=== PATIENT | female | born 1975 | race Caucasian/White ===

== ENCOUNTER 2023-10-14 09:18 | Outpatient (OUT) | payer BC, SELFPAY ==
--- NOTE | 2023-10-14 09:26 | MM_ITS ---
Patient Name: KEE RAI MR#: [id number] : 1975 Exam Date: 10/14/2023 Ordering Doctor: DR CELESTE BERG RADIOLOGY REPORT PROCEDURE: MM TOMOSYNTHESIS SCREENING BI COMPARISON: MG MAMM SCREEN 3D DAY[facility] CAD, 01/20/2022. MG MAMM SCREEN DAYANA W CAD, 05/17/2020. MG MAMM SCREEN DAYANA W CAD, 10/25/2018. MG MAMM [facility] DIAG W CAD DIG, 03/27/2013. INDICATIONS: Screening Calculator Name NCI Breast Cancer Risk Assessment Tool 5 Year Breast Cancer Risk 1.50% Lifetime Breast Cancer Risk 13.60% Personal Breast Cancer No Personal Ovarian Cancer No Treatments None Family Cancers Grandmother-paternal with lupus cancer at age 68. LOCATION: [facility] BREAST COMPOSITION: Extremely dense, which lowers the sensitivity of mammography. FINDINGS: DIAGNOSTIC CATEGORY 2--BENIGN FINDING: RIGHT BREAST: No significant suspicious finding. Scattered benign-appearing calcifications are present. LEFT BREAST: No significant suspicious finding. No significant change has occurred. RECOMMENDATIONS: ROUTINE MAMMOGRAM AND CLINICAL EVALUATION IN 12 MONTHS. PLEASE NOTE: A NORMAL MAMMOGRAM DOES NOT EXCLUDE THE POSSIBILITY OF BREAST CANCER. A CLINICALLY SUSPICIOUS PALPABLE LUMP SHOULD BE BIOPSIED. Dictated by: Gigi Colunga M.D. on 10/15/2023 at 14:36 Approved by: Gigi Colunga M.D. on 10/15/2023 at 14:40
== END 2023-10-14 09:19 | disposition home or self-care (01) ==
LOC: MAMMO 09:22
PROVIDERS: PCP Internal Medicine; Visit Provider Physician Assistant
DX: Z12.31 Encounter for screening mammogram for malignant neoplasm of breast (principal); Z80.8 Family history of malignant neoplasm of other organs or systems
CPT/HCPCS: 77063; 77067

== ENCOUNTER 2023-10-26 09:34 | Outpatient (OUT) | payer BC, SELFPAY ==
--- NOTE | 2023-10-26 09:37 | MR_ITS ---
The [address] [address] Patient Name: KEE RAI MRN: [facility]:[id number] date: 1975 Sex: F Assigned Patient Location: MRI Current Patient Location: MRI Accession/Order Number: [id number] Exam Date: 10/26/2023 09:52 Report Date: 10/26/2023 10:59 At the request of: ALICIA WAGONER Procedure: MR lumbar spine wo con EXAM: MR lumbar spine wo con REASON FOR EXAM: Lumbar Facet Arthropathy, Degenerative Disc Disease. TECHNIQUE: Multiplanar, multisequence imaging of the lumbar spine was performed without contrast COMPARISON: 01/23/2022. FINDINGS: 5 nonrib-bearing lumbar vertebrae. Normal lumbar lordosis without significant listhesis. Vertebral body heights are maintained. The bone marrow signal is heterogeneous, favoring to represent red marrow reconversion. There are surgical changes at the L5-S1 level from likely prior partial laminectomy and prior discectomy. No acute or aggressive osseous abnormality identified. Visualized bony pelvis is congruent with mild joint space and sacroiliac joints. Limited evaluation of the abdominopelvic viscera is without acute or suspicious abnormality. L1-L2: No focal disc herniation identified. No significant spinal canal or neural foraminal stenosis. L2-L3: No focal disc herniation identified. No significant spinal canal or neural foraminal stenosis. L3-L4: Minimal broad-based disc bulge without significant spinal canal stenosis. Mild bilateral neural foraminal stenosis secondary to disc osteophyte complex and facet arthropathy. This has slightly progressed from prior study. L4-L5: Minimal broad-based disc bulge with flattening the ventral thecal sac. No significant spinal canal stenosis. Mild bilateral neural foraminal stenosis, right greater than left secondary to disc osteophyte complex and facet arthropathy. This is unchanged. L5-S1: Broad-based disc bulge without significant spinal canal stenosis. No definite compression of the traversing S1 nerve roots. Moderate bilateral neural foraminal stenosis secondary to disc osteophyte complex and facet arthropathy. Neural foraminal stenosis has not significant changed. MR/MR lumbar spine wo con IMPRESSION: 1. Postsurgical changes at the L5-S1 level. Unchanged moderate bilateral neural foraminal stenosis at this level. 2. Minimal degenerative disc disease at the remaining lumbar levels with slight progression at the L3-L4 level. No focal large disc herniation or severe spinal canal stenosis. Electronically authenticated by: SOURAV MORGAN Date: 10/26/2023 10:59
--- OUTSIDE RECORDS SUMMARY | 2023-10-26 09:52 | XMS_ITS | CCD ---
Author Organization [facility] Care Team Providers Care Chief Green Officer Name Role Phone Chapito Brush Unavailable OTILIA Man Primary Care Provider MD Chapito Brush Attending Provider [phone] Zeny Kaiser Unavailable Donovan, II Eduardo Primary Care Provider MD Zeny Kaiser Attending Provider ANN, DR PAULINE Gu Admitting Unavailable HEMMER, DR PAULINE Gu Attending Unavailable JAZMINE LIAO Consulting Unavailable DONOVAN, DR KABA Primary Care Unavailable HEMMER, DR PAULINE Gu Consulting Unavailable HEMMER, DR PAULINE Gu Attending Unavailable HEMMER, DR PAULINE Gu Admitting Unavailable HEMMER, DR PAULINE Gu Consulting Unavailable MAN, DR KABA Primary Care Unavailable HEMMER, DR PAULINE Gu Attending Unavailable HEMMER, DR PAULINE Gu Admitting Unavailable JUNO CORTES Consulting Unavailable DONOVAN, DR KABA Primary Care Unavailable HEMMER, DR PAULINE Gu Consulting Unavailable AMBER Garza, DR KING Attending Unavailable TRACI ., MR VALERA Consulting Unavailable DONOVAN, DR KABA Primary Care Unavailable AMBER Garza, DR KING Admitting Unavailable SERGIO RAE Consulting Unavailable SERGIO RAE Attending Unavailable DONOVAN, DR KABA Primary Care Unavailable SERGIO RAE Admitting Unavailable JAZMINE HARVEY Consulting Unavailable BILL .BHASKAR Consulting Unavailable BILL ., BHASKAR Attending Unavailable BILL ., BHASKAR Admitting Unavailable DONOVAN, DR KABA Primary Care Unavailable MISC, DR ROBERTO Referring Unavailable ALICIA WAGONER Attending Unavailable ALICIA WAGONER Admitting Unavailable DONOVAN, DR KABA Primary Care Unavailable ALICIA WAGONER Admitting Unavailable ALICIA WAGONER Attending Unavailable LEIGHA, DR GIGI Hurley Consulting Unavailable DONOVAN, DR KABA Primary Care Unavailable ALICIA WAGONER Consulting Unavailable DONOVAN, DR KABA Consulting Unavailable DONOVAN, DR KABA Attending Unavailable DONOVAN, DR KABA Admitting Unavailable DONOVAN, DR KABA Primary Care Unavailable EDITH ., DR BAPTISTE Consulting Unavailable LEIGHA, DR GIGI Hurley Consulting Unavailable Man, II Eduardo Primary Care Provider MD Zeny Kaiser Attending Provider [phone] Donovan, II Eduardo Primary Care Provider [phone] MD Zeny Kaiser Attending Provider [phone] Maurisio Jones Unavailable Donovan, II Eduardo Primary Care Provider [phone] DO Maurisio Jones Attending Provider [phone] Zeny Kaiser Admitting Unavailable Zeny Kaiser Attending Unavailable Donovan, Eduardo Primary Care Unavailable Maurisio Jones Admitting Unavailable Maurisio Jones Attending Unavailable Eduardo Man Primary Care Unavailable Maurisio Jones Attending Unavailable Eduardo Man Primary Care Unavailable Maurisio Jones Admitting Unavailable Zeny Kaiser Admitting Unavailable Zeny Kaiser Attending Unavailable Eduardo Man Primary Care Unavailable Zeny Kaiser Admitting Unavailable Zeny Kaiser Attending Unavailable Eduardo Man Primary Care Unavailable EMY PALOMARES Attending Unavailable EMY PALOMARES Referring Unavailable EMY PALOMARES Attending Unavailable JAZMINE AVENDAÑO Attending Unavailable ZENY KAISER Referring Unavailable Eduardo Man MD Primary Care Provider Eduardo Man MD Unavailable Allergies Allergy Classification Reported Allergen(s) Allergy Type Date of Onset Reaction(s) Facility (1 source) egg extract Drug Allergy 09-17-2014 [facility] Repository (1 source) Papaveretum Drug Allergy 09-17-2014 [facility] Repository (1 source) venlafaxine Drug Allergy 09-17-2014 [facility] Repository (1 source) Wheat preparation Drug Allergy 09-17-2014 [facility] Repository (3 sources) venlafaxine Drug Allergy 08-15-2021 [facility] Medications Current Medications Medication Drug Class(es) Dates Sig (Normalized) Sig (Original) acetaminophen 325 mg / HYDROcodone bitartrate 5 mg oral tablet (20 sources) Opioid Agonist Start: 08-30-2023 take 1 tablet by mouth every six hours HYDROcodone-acetamin ophen ([place]) 5-325 MG tablet Indications: Degeneration of lumbar or lumbosacral intervertebral disc , Lumbar radiculopathy Take 1 tablet by mouth every 6 (six) hours 120 tablet 0 08/30/2023 Active Start: 01-20-2019 take 1 tablet by keiko th three times daily Hydrocodone-Acetaminophen Active 1 TAB P O Three times daily January 19, 2019 11:00pm HYDROcodone-Acet aminophen Active Advair Diskus 250-50 MCG/DOSE (20 sources) take 1 puff(s) by inhalation twice daily [id number] 200 actuat albuterol 0.09 mg/actuat metered dose inhaler (15 sources) beta2-Adrenergic Agonist Start: 3 take 2 puff(s) by inhalation every four hours for wheezing albuterol HFA 90 mcg/act inhaler Indications: Mild persistent asthmatic bronchitis without complication (CMS/HCC) Inhale 2 puffs every 4 (four) hours if needed for wheezing or shortness of breath. 18 g 5 01/28/2023 Active Start: 01-20-2019 take 1 puff(s) by in halation every four to six hours Albuterol Sulfate (Proair Hfa) 90 mcg/actuation Hfa Aerosol Inhaler Active 2 PUFF INHALATION EVERY 4-6 HOURS January 19, 2019 11:00pm take 2 puff(s) by in halation every four hours as needed b complex-folic acid tablet (3 sources) take 1 tablet by mouth in the morning b complex-folic acid tablet Take 1 tablet by mouth in the morning. 0 Active baclofen 10 mg oral tablet (5 sources) gamma-Aminobutyric Acid-ergic Agonist Start: 01-21-20 19 take 5 mg by mouth three times daily Baclofen Active 5 MG PO Three times daily January 19, 2019 11:00pm Bee Pollen 500 MG chewable tablet (3 sources) Bee Pollen 500 M G chewable tablet Chew 1 tablet in the morning. 0 Active biotin 10 mg oral tablet (3 sources) biotin 10 MG tab let every 12 (twelve) hours. 0 Active 24 hr buPROPion hydrochloride 150 mg extended release oral tablet (3 sources) Aminoketone buPROPion XL (Wellbutrin XL) 150 MG 24 hr tablet 1 (one) time each day at the same time. 0 Active cetirizine hydrochloride 10 mg oral capsule (20 sources) Histamine-1 Receptor Antagonist Start: 01-21-20 19 take 1 capsule by mouth once daily Cetirizine (Zyrtec) 10 mg Capsule Active 10 MG PO Daily January 19, 2019 11:00pm take 1 tablet by mouth every twe nty-four hours cholecalciferol 0.05 mg oral capsule (3 sources) Vitamin D cholecalciferol (Vitamin D-3) 50 MCG (1999 UT) capsule 1 capsule 1 (one) time each day at the same time. 0 Active cyclobenzaprine hydrochloride 10 mg oral tablet (20 sources) Muscle Relaxant take 1 tablet by mouth three times daily as needed cyclobenzaprine (Flexeril) 10 MG tablet Take 10 mg by mouth 3 (three) times a day as needed. 0 Active Flexeril Active diazePAM 5 mg oral tablet (20 sources) Benzodiazepine Start: 08-30-2023 take 1 tablet by mouth in the morning diazePAM (Valium) 5 MG tablet Indications: Back muscle spasm Take 1 tablet (5 mg) by mouth in the morning and 1 tablet (5 mg) before bedtime. 60 tablet 0 08/30/2023 Active Start: 01-20-2019 take 5 mg by mouth o nce daily at bedtime Diazepam Active 2.5 MG PO Daily January 19, 2019 11:00pm 5 mg hs diazePAM Active docusate sodium 100 mg oral capsule (3 sources) take 1 capsule by mouth in the morning docusate sodium (Colace) 100 MG capsule Take 100 mg by mouth in the morning. 0 Active fluticasone propionate 0.05 mg/actuat metered dose nasal spray (3 sources) Corticosteroid take 1 spray(s) nasal route once daily fluticasone (Flonase) 50 MCG/ACT nasal spray SPRAY 1 SPRAY INTO EACH NOSTRIL EVERY DAY 0 Active gabapentin 100 mg oral capsule (20 sources) Anti-epileptic Agent Start: 05-19-20 take 3 capsules by mouth in the morning gabapentin (Neurontin) 100 MG capsule Indications: Degeneration of lumbar or lumbosacral intervertebral disc , Lumbar radiculopathy Take 3 capsules (300 mg) by mouth in the morning and 3 capsules (300 mg) before bedtime. 200 capsule 3 05/19/2023 Active take 1 capsule by mo [facility] every twenty-four hours Gabapentin 400 MG 1 capsule Orally Once a day Active linaclotide 0.29 mg oral capsule (3 sources) Guanylate Cyclase-C Agonist Start: 05-24-2023 take 1 capsule by mouth once daily linaCLOtide (Linzess) 290 MCG capsule Indications: Chronic idiopathic constipation Take 1 capsule (290 mcg) by mouth 1 (one) time each day at the same time. 90 capsule 3 05/24/2023 Active meclizine hydrochloride 25 mg oral tablet (8 sources) Antiemetic Start: 02-26-2023 take 1 tablet by mouth every six hours for dizziness meclizine (Antivert) 25 MG tablet Indications: Meniere's disease of both ears Take 1 tablet (25 mg) by mouth every 6 (six) hours if needed for dizziness. 120 tablet 2 02/26/2023 Active Start: 01-20-2019 take 25 mg by mouth three times daily Meclizine Active 25 MG PO Three times daily January 19, 2019 11:00pm montelukast 10 mg oral tablet (3 sources) Leukotriene Receptor Antagonist montelukast (Singulair) 10 MG tablet 1 (one) time each day at the same time. 0 Active Multiple Vitamin (multivitamin) tablet (3 sources) take 1 tablet by mouth in the morning Multiple Vitamin (multivitamin) tablet Take 1 tablet by mouth in the morning. 0 Active omeprazole 40 mg delayed release oral capsule (20 sources) Proton Pump Inhibitor Start: take 1 capsule by mouth once daily omeprazole (PriLOSEC) [address] capsule Indications: Gastro-esophageal reflux disease without esophagitis TAKE 1 CAPSULE BY MOUTH EVERY DAY 90 capsule 3 02/15/2023 Active Omeprazole Not-T aking ondansetron 4 mg disintegrating oral tablet (8 sources) Serotonin-3 Receptor Antagonist Start: 05-24-2023 take 1 tablet by mouth every six hours for nausea ondansetron ODT (Zofran-ODT) 4 MG disintegrating tablet Indications: Chronic idiopathic constipation Take 1 tablet (4 mg) by mouth every 6 (six) hours if needed for nausea or vomiting. 20 tablet 5 05/24/2023 Active Start: 01-20-2019 Ondansetron Ac tive 4 MG TRANSLINGU Q8H January 19, 2019 11:00pm OXcarbazepine 150 mg oral tablet (3 sources) Anti-epileptic Agent OXcarbazepi ne (Trileptal) 150 MG tablet TAKE 1 TABLET BY MOUTH TWICE A DAY FOR 30 DAYS for 30 0 Active plecanatide 3 mg oral tablet (8 sources) Start: End: 024 take 1 tablet by mouth in the morning plecanatide (Trulance) tablet tablet Indications: Chronic idiopathic constipation Take 1 tablet (3 mg) by mouth in the morning. 90 tablet 3 03/11/2023 03/10/2024 Active ProAir HFA 108 (90 Base) MCG/ACT (20 sources) take 2 puff(s) by inhalation every four hours as needed Probiotic Formula (20 sources) vitamin b12 0.1 mg oral tablet (3 sources) Vitamin B12 take 1 tablet by mouth in the morning cyanocobalamin (Vitamin B-12) 100 MCG tablet Take 100 mcg by mouth in the morning. 0 Active Completed/Discontinued Medications Medication Drug Class(es) Dates Sig (Normalized) Sig (Original) triamcinolone acetonide 40 mg/ml injectable suspension (20 sources) Corticosteroid Start: 09-22-2022 Kenalog-40 Jun, 40 mg Problems Active Problems Problem Classification Problem Date Documented Da te Episodic/Chronic Abdominal pain (20 sources) Abdominal pain; Translations: [Unspecified abdominal pain] Episodic Anxiety disorders (3 sources) Anxiety about body function or health; Translations: [Other specified anxiety disorders] Onset: 1 01-07-2023 Chronic Asthma (13 sources) Mild intermittent asthma with (acute) exacerbation; Translations: [Asthmatic bronchitis] Onset: 7 Resolved: 3 01-07-2023 Chronic Conditions associated with dizziness or vertigo (9 sources) Bilateral Meniere's disease of inner ears; Translations: [Meniere's disease, bilateral] Onset: 1 Resolved: 3 01-07-2023 Chronic Diseases of white blood cells (3 sources) Eosinophil count raised; Translations: [Eosinophilia] Onset: 5 01-07-2023 Chronic Disorders of lipid metabolism (3 sources) Pure hypercholesterolemia; Translations: [Pure hypercholesterolemia, unspecified] Onset: 7 01-07-2023 Chronic Disorders usually diagnosed in infancy, childhood, or adolescence (3 sources) Attention deficit hyperactivity disorder, predominantly inattentive type; Translations: [Other specified behavioral and emotional disorders with onset usually occurring in childhood and adolescence] Onset: 3 02-26-2023 Chronic Esophageal disorders (3 sources) Gastroesophageal reflux disease without esophagitis; Translations: [Gastro-esophageal reflux disease without esophagitis] Onset: 5 01-07-2023 Chronic Genitourinary symptoms and ill-defined conditions (3 sources) Nocturnal enuresis; Translations: [Nocturnal enuresis] Onset: 8 01-07-2023 Chronic Headache; including migraine (3 sources) Migraine without aura, not refractory ; Translations: [Migraine without aura, not intractable, without status migrainosus] Onset: 1 01-07-2023 Chronic Neoplasms of unspecified nature or uncertain behavior (6 sources) Monoclonal gammopathy (clinical); Translations: [Monoclonal gammopathy] Onset: 5 01-07-2023 Chronic Other acquired deformities (20 sources) Spondylolisthesis; Translations: [Spondylolisthesis, lumbosacral region] Episodic Other acquired deformities (3 sources) Spondylolisthesis, lumbosacral region Episodic Other connective tissue disease (12 sources) Disorder of rotator cuff; Translations: [Unspecified rotator cuff tear or rupture of left shoulder, not specified as traumatic] Episodic Other ear and sense organ disorders (3 sources) Mixed conductive and sensorineural hearing loss, unilateral, left ear, with unrestricted hearing on the contralateral side; Translations: [Mixed hearing loss, unilateral] Onset: 6 01-07-2023 Chronic Other endocrine disorders (3 sources) Bilateral mass of adrenal glands; Translations: [Other specified disorders of adrenal gland] Onset: 9 01-07-2023 Chronic Other gastrointestinal disorders (5 sources) Chronic idiopathic constipation; Translations: [Chronic idiopathic constipation] Onset: 3 04-01-2023 Chronic Other inflammatory condition of skin (3 sources) Pityriasis rosea; Translations: [Pityriasis rosea] Onset: 1 01-07-2023 Chronic Other nervous system disorders (20 sources) Chronic pain; Translations: [Other chronic pain] Onset: 7 01-07-2023 Chronic Other nervous system disorders (16 sources) Other chronic pain; Translations: [OTHER CHRONIC PAIN] Onset: 2 Resolved: 2 Chronic Other nervous system disorders (3 sources) Brachial plexus disorder; Translations: [Brachial plexus disorders] Onset: 1 01-07-2023 Chronic Other nervous system disorders (3 sources) Cerebral cyst; Translations: [Cerebral cysts] Onset: 1 01-07-2023 Chronic Other nervous system disorders (3 sources) Choroid plexus cyst; Translations: [Cerebral cysts] Onset: 3 01-07-2023 Chronic Other non-traumatic joint disorders (2 sources) Derangement of right shoulder joint; Translations: [Other specific joint derangements of right shoulder, not elsewhere classified] Chronic Other non-traumatic joint disorders (2 sources) Other specific joint derangements of right shoulder, not elsewhere classified Chronic Other non-traumatic joint disorders (13 sources) Pain in right shoulder; Translations: [Right shoulder pain] Episodic Other non-traumatic joint disorders (7 sources) Shoulder pain; Translations: [Pain in unspecified shoulder] Episodic Other non-traumatic joint disorders (2 sources) Pain in unspecified shoulder Episodic Other non-traumatic joint disorders (1 source) Pain in left shoulder; Translations: [Pain in left shoulder] Onset: 3 Episodic Other nutritional; endocrine; and metabolic disorders (3 sources) Disorder of sulfur-bearing amino acid metabolism; Translations: [Disorders of sulfur-bearing amino-acid metabolism, unspecified] Onset: 5 01-07-2023 Chronic Other upper respiratory disease (3 sources) Allergic rhinitis due to pollen; Translations: [Allergic rhinitis due to pollen] Onset: 6 01-07-2023 Chronic Spondylosis; intervertebral disc disorders; other back problems (20 sources) Prolapsed lumbar intervertebral disc; Translations: [Other intervertebral disc displacement, lumbar region] Onset: 5 Resolved: 2 Chronic Substance-related disorders (6 sources) Nicotine dependence; Translations: [Nicotine dependence, cigarettes, uncomplicated] Onset: 8 Resolved: 3 01-07-2023 Chronic Thyroid disorders (3 sources) Pau thyroiditis; Translations: [Autoimmune thyroiditis] Onset: 5 01-07-2023 Chronic Unclassified (3 sources) ACUTE COUGH; Translations: [ACUTE COUGH] Onset: 2 Unclassified (3 sources) LOW BACK PAIN, UNSPECIFIED; Translations: [LOW BACK PAIN, UNSPECIFIED] Onset: 2 Unclassified (1 source) Other specific joint derangements of right shoulder, not elsewhere classified; Translations: [Other specific joint derangements of right shoulder, not elsewhere classified] Onset: 4 Unclassified (1 source) Pain in right shoulder; Translations: [Pain in right shoulder] Onset: 3 Past or Other Problems Problem Classification Problem Date Documented Date Episodic/Chronic Allergic reactions (6 sources) Allergic gastroenteritis and colitis; Translations: [Other allergic and dietetic gastroenteritis and colitis] Onset: 015 01-07-2023 Episodic Bacterial infection; unspecified site (6 sources) Bartonellosis; 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, unspecified] Onset: Resolve d: 023 01-07-2023 Episodic Diseases of mouth; excluding dental (3 sources) Mass of parotid gland; Translations: [Other diseases of salivary glands] Onset: 017 01-07-2023 Episodic E Codes: Fall (1 source) Unspecified fall, initial encounter; Translations: [UNSPECIFIED FALL INITIAL ENCOUNTER] Onset: Episodic Genitourinary symptoms and ill-defined conditions (3 sources) Delay when starting to pass urine; Translations: [Hesitancy of micturition] Onset: 019 01-07-2023 Episodic Nonspecific chest pain (4 sources) Other chest pain; Translations: [OTHER CHEST PAIN] Onset: Episodic Other aftercare (1 source) Other salvage determiner (current) drug therapy; Translations: [OTH NURSING HOME CURRENT DRUG THERAPY] Onset: Episodic Other and unspecified benign neoplasm (20 sources) Tubular adenoma ; Translations: [Benign neoplasm, unspecified site] Onset: 019 01-07-2023 Episodic Other and unspecified benign neoplasm (3 sources) Adrenal adenoma; Translations: [Benign neoplasm of unspecified adrenal gland] Onset: 01-07-2023 Episodic Other and unspecified benign neoplasm (3 sources) Benign neoplasm of adrenal gland; Translations: [Benign neoplasm of unspecified adrenal gland] Onset: 015 01-07-2023 Episodic Other connective tissue disease (2 sources) Myalgia, unspecified site; Translations: [MYALGIA UNSPECIFIED SITE] Onset: Episodic Other connective tissue disease (1 source) Fibromyalgia; Translations: [FIBROMYALGIA] Onset: Episodic Other connective tissue disease (3 sources) Fibromyalgia; Translations: [Fibromyalgia] Onset: 01-07-2023 Episodic Other connective tissue disease (3 sources) Muscle pain; Translations: [Myalgia, unspecified site] Onset: 01-07-2023 Episodic Other connective tissue disease (3 sources) Bursitis of hip; Translations: [Trochanteric bursitis, unspecified hip] Onset: 01-07-2023 Episodic Other ear and sense organ disorders (3 sources) Sensorineural hearing loss; Translations: [Unspecified sensorineural hearing loss] Onset: Resolve d: 05-24-2023 Chronic Other ear and sense organ disorders (3 sources) Sensorineural hearing loss, unilateral, left ear, with unrestricted hearing on the contralateral side; Translations: [Sensorineural hearing loss, unilateral] Onset: Resolve d: 05-24-2023 Chronic Other ear and sense organ disorders (3 sources) Bilateral tinnitus; Translations: [Tinnitus, bilateral] Onset: 01-07-2023 Episodic Other endocrine disorders (3 sources) Disorder of adrenal gland; Translations: [Disorder of adrenal gland, unspecified] Onset: Resolve d: 05-24-2023 Chronic Other female genital disorders (3 sources) Mass of uterine adnexa; Translations: [Other specified conditions associated with female genital organs and menstrual cycle] Onset: 019 Resolve d: 05-24-2023 Episodic Other gastrointestinal disorders (20 sources) Constipation; Translations: [Constipation, unspecified] Onset: Resolve d: 04-01-2023 Episodic Other gastrointestinal disorders (3 sources) Drug-induced constipation; Translations: [Drug induced constipation] Onset: Resolve d: 04-01-2023 Episodic Other nervous system disorders (3 sources) Abnormal gait; Translations: [Unspecified abnormalities of gait and mobility] Onset: 01-07-2023 Episodic Other nervous system disorders (3 sources) Unsteady when standing; Translations: [Unsteadiness on feet] Onset: 01-07-2023 Episodic Other non-traumatic joint disorders (3 sources) Pain in right hip; Translations: [PAIN IN RIGHT HIP] Onset: Episodic Other nutritional; endocrine; and metabolic disorders (3 sources) Underweight; Translations: [Underweight] Onset: Resolve d: 05-24-2023 Episodic Other screening for suspected conditions (not mental disorders or infectious disease) (3 sources) Plain X-ray result abnormal; Translations: [Abnormal findings on diagnostic imaging of other specified body structures] Onset: Resolve d: 05-24-2023 Chronic Other screening for suspected conditions (not mental disorders or infectious disease) (4 sources) Encounter for screening mammogram for malignant neoplasm of breast; Translations: [ENC SCR MAMMO MALIG NEOPLASM BREAST] Onset: Episodic Other upper respiratory disease (3 sources) Allergic rhinitis; Translations: [Allergic rhinitis, unspecified] Onset: Resolve d: 05-24-2023 Chronic Residual codes; unclassified (1 source) Family history of malignant neoplasm of other organs or systems; Translations: [FAM HX MALIG NEOPLASM OTH ORGN/SYS] Onset: Episodic Residual codes; unclassified (3 sources) Homozygous methylenetetrahydrofolate reductase mutation; Translations: [Genetic susceptibility to other disease] Onset: 01-07-2023 Episodic Spondylosis; intervertebral disc disorders; other back problems (20 sources) Chronic low back pain; Translations: [Lumbago with sciatica, left side] Onset: Resolve d: Episodic Sprains and strains (1 source) Sprain of ligaments of lumbar spine, initial encounter; Translations: [SPRAIN LIGAMENTS LUMBAR SPN INITIAL] Onset: Episodic Superficial injury; contusion (1 source) Contusion of right hip, initial encounter; Translations: [CONTUSION RIGHT HIP INITIAL ENC] Onset: Episodic Unclassified (3 sources) Lumbar pain M54.50 Onset: Resolve d: Unclassified (1 source) ACUTE COUGH; Translations: [ACUTE COUGH] Onset: Unclassified (1 source) LOW BACK PAIN, UNSPECIFIED; Translations: [LOW BACK PAIN, UNSPECIFIED] Onset: Results Test Name Value Interpretation Reference Range Facility MR shoulder RT wo conon 08-09 MR shoulder RT wo con [facility] [place] [address] MRI Report Signed Patient: Cata Nichole MR#: [id number] : 1975 Acct:[id number] Age/Sex: 48 / F ADM Date: 08/19/23 Loc: [facility] Room: Type: [facility] [address] Attending Dr: Maurisio Jones DO Copies to: Maurisio Jones DO Ordering Provider: Maurisio Jones DO Date of Service: 08/19/23 MR/MR shoulder RT wo con: Internal derangement of right shoulder EXAMINATION: MRI OF THE RIGHT SHOULDER CLINICAL HISTORY: Right shoulder joint pain anteriorly for several months. Limited range of motion COMPARISON: Right shoulder series 06/29/2023 TECHNIQUE: Multiecho, multiplanar imaging was performed with use of an extremity coil. No contrast was administered. FINDINGS: Bones/Joints: No joint effusion. No bone marrow edema. No fracture is seen. Heterogeneous bone marrow signal without focal lesion. Minimal degenerative change involving the glenohumeral joint. Mild degenerative changes involving the AC joint. Inferior glenohumeral ligament appears unremarkable. Labrum: Suboptimally visualized. Mildly heterogenous in signal likely degenerative in nature. Biceps tendon: Seen within the bicipital groove without focal abnormality. The biceps tendon appears to extend to the level of the labrum. Supraspinatus: Tendinosis with a small amount of adjacent fluid noted. No definitive tear is seen. Infraspinatus: Unremarkable. Teres Minor: Unremarkable. Subscapularis: Unremarkable. MR/MR shoulder RT wo con IMPRESSION: TENDINOSIS OF THE SUPRASPINATUS TENDON WITHOUT DEFINITIVE TEAR. THERE IS SMALL AMOUNT OF ADJACENT FLUID NOTED. NO SIGNIFICANT ROTATOR CUFF OR [facility] IS SEEN. MILD DEGENERATIVE CHANGES OF THE SHOULDER. Impression dictated by: Tin Martinez Jr., D.O.08/19/2023 2:20 PM Dictation Location: [place] [address] Transcribed By: [facility] 08/19/23 1420 Dictated By: Tin Martinez Jr, DO 08/19/23 1415 Signed By: 08/19/23 1420 Normal [facility] CT ABDOMEN PELVIS W AND WO I V CONTRASTon 08-16-2023 CT ABDOMEN PELVIS W AND WO IV CONTRAST CT of the Abdomen and Pelvis with and without intravenous contrast medium History: Colitis, abdominal pain, bloating, adrenal gland disorder. Technical Factors: CT imaging of the abdomen and pelvis were obtained and formatted as 5 mm contiguous axial images from the domes of the diaphragm to the symphysis pubis. Sagittal and coronal reconstructions were also obtained. Oral contrast medium: Barium sulfate, 400 mL.. Intravenous contrast medium: Isovue-300, 100 mL.. Comparison: CT abdomen pelvis, [facility], November 25, 2018.. Findings: Lungs: Lung bases are clear. Liver: Normal in size, shape, and attenuation. Bile Ducts: Normal in caliber. Gallbladder: No stones or wall thickening. Pancreas: Normal without masses, cysts, ductal dilatation or calcification. Spleen: Normal in size without masses or calcifications. No splenules. Kidneys: Normal in size and enhancement. No hydronephrosis, masses, or stones. Adrenals: Noncalcified 2.6 x 1.9 x 2.7 cm right adrenal nodule. This compares with prior measurement of 3.3 x 1.9 x 1.9 cm, in November,. Precontrast HU: 9.8. Postcontrast HU: 57.7. Delayed HU: 10.4. Absolute washout: 98.7%. Relative washout: 82.0%. Small bowel: Normal in caliber. Appendix: Not visualized. Colon: Normal in caliber. Copious stool throughout colon. Peritoneum: No ascites, free air, or fluid collections. Vessels: Aorta normal in course and caliber. Portal vein, splenic vein, superior mesenteric vein are patent. Lymph nodes: Retroperitoneal: No enlarged retroperitoneal lymph nodes. Mesenteric: No enlarged mesenteric lymph nodes. Pelvic: No enlarged pelvic lymph nodes. Ureters: Normal in course and caliber. No calcifications. Bladder: No wall thickening. Reproductive organs: No pelvic masses. Abdominal Wall: No hernia identified. No diastasis of rectus musculature. No edema or masses. Bones: No bone lesions. Posterior disc space narrowing L1-L2, and L5-S1. No post operative changes. IMPRESSION: Noncalcified right adenoma. Constipation. All CT scans at this facility use dose modulation, iterative reconstruction, and/or weight based dosing when appropriate to reduce radiation dose to as low as reasonably achievable. ELECTRONICALLY SIGNED BY: Giuseppe Zamudio MD Normal Not Available XR shoulder BI min 2Von 06-10 XR shoulder BI min 2V [facility] Main [place] [address] [place] [address] XRay Report Signed Patient: Cata Nichole MR#: [id number] : 1975 Acct:[id number] Age/Sex: 48 / F ADM Date: 06/29/23 [place]: [facility] Room: Type: [facility] [address] Attending Dr: Maurisio Jones DO Copies to: Maurisio Jones DO Ordering Provider: Maurisio Jones DO Date of Service: 06/29/23 XR/XR shoulder BI min 2V: Pain in right shoulder;Pain in left shoulder XR shoulder BI min 2V 06/29/2023 9:17 AM SIGNS AND SYMPTOMS: Bilateral shoulder pain PROTOCOL: Frontal, Grashey, scapular Y, and axillary views of the bilateral shoulders COMPARISON: None FINDINGS: The acromioclavicular joint and glenohumeral joint are preserved bilaterally. There is no fracture or dislocation. The visualized right and left hemithorax are grossly intact. XR/XR shoulder BI min 2V IMPRESSION: No acute bony injury or significant degenerative change. Impression dictated by: Donald Jones M.D.06/29/2023 12:16 PM Dictation Location: [facility]--12 Transcribed By: [facility] 06/29/23 1216 Dictated By: Donald Jones II, MD 06/29/231212 Signed By: 06/29/23 1216 [facility] XR shoulder BI min 2V [facility] [employer] Other XR shoulder BI min 2V [facility] Main [facility] [employer] Other XR shoulder BI min 2V [address] [place] [address] [employer] Other XR shoulder BI [place] 2[place] [address] [employer] Other XR shoulder BI min 2V XRay Report [employer] Other XR shoulder BI min 2V Signed [employer] Other XR shoulder BI min 2V Patient: Cata Nichole MR#: [id number] [employer] Other XR shoulder BI min 2V 2779 [employer] Other XR shoulder BI min 2V : 1975 Acct:[id number] [employer] Other XR shoulder BI min 2V Age/Sex: 48 / F ADM Date: 06/29/23 [employer] Other XR shoulder BI min 2V Loc: [facility] Room: Type: [facility] [employer] Other XR shoulder BI min 2V Attending Dr: Maurisio Jones DO [employer] Other XR shoulder BI min 2V Copies to: Maurisio Jones DO [employer] Other XR shoulder BI min 2V Ordering Provider: Maurisio Jones DO [employer] Other XR shoulder BI min 2V Date of Service: 06/29/23 [employer] Other XR shoulder BI min 2V XR/XR shoulder BI min 2V: Pain in right shoulder;Pain in left shoulder [employer] Other XR shoulder BI min 2V XR shoulder BI min 2V 06/29/2023 9:17 AM [employer] Other XR shoulder BI min 2V SIGNS AND SYMPTOMS: Bilateral shoulder pain [employer] Other XR shoulder BI min 2V PROTOCOL: Frontal, Grashey, scapular Y, and axillary views of the bilateral shoulders [employer] Other XR shoulder BI min 2V COMPARISON: None [employer] Other XR shoulder BI min 2V FINDINGS: [employer] Other XR shoulder BI min 2V The acromioclavicular joint and glenohumeral joint are preserved bilaterally. There is no fracture [employer] Other XR shoulder BI min 2V or dislocation. The visualized right and left hemithorax are grossly intact. [employer] Other XR shoulder BI min 2V XR/XR shoulder BI min 2V [employer] Other XR shoulder BI min 2V IMPRESSION: [employer] Other XR shoulder BI min 2V No acute bony injury or significant degenerative change. [employer] Other XR shoulder BI min 2V Impression dictated by: Donald Jones M.D.06/29/2023 12:16 PM [employer] Other XR shoulder BI min 2V Dictation Location: [place] [address] [employer] Other XR shoulder BI min 2V Transcribed By: COURTNEY 06/29/23 1216 [employer] Other XR shoulder BI min 2V Dictated By: Donald Jones II, MD 06/29/23 1213 [employer] Other XR shoulder BI min 2V Signed By: [employer] Other XR shoulder BI min 2V 06/29/23 1211 [employer] Other XR pre/post mri xrayon 04-23 XR pre/post mri xray [facility] Main [place] [address] [place] [address] MRI Report Signed Patient: Cata Nichole MR#: [id number] : 1975 Acct:[id number] Age/Sex: 47 / F ADM Date: 04/23/23 Loc: MR Room: Type: [facility] Attending Dr: Zeny Kaiser MD Copies to: Zeny Kaiser MD Ordering Provider: Zeny Kaiser MD Date of Service: 04/23/23 MR/MR cervical spine wo con: further evaluation;Other spondylosis with radiculopathy, cer ([id number]) XR/XR pre/post mri xray: OBLIQUE ONLY MR cervical spine wo con, XR pre/post mri xray 04/23/2023 2:37 PM SIGNS AND SYMPTOMS: Neck pain radiating into right shoulder, history of fall which precipitated symptoms PROTOCOL: Multiplanar multisequence MR images of the cervical spine were obtained without IV contrast. COMPARISON: 04/23/2023 FINDINGS: Radiographs of the cervical spine: The bones are in anatomic alignment. There is operative joint spurring and facet hypertrophy which gives to neural foraminal stenosis bilaterally, predominantly at C5-C6 and C6-C7. The prevertebral soft tissues are grossly unremarkable. MRI cervical spine: The bones of the cervical spine are in anatomic alignment. There is preservation of vertebral body. There is phthisis case mild disc height loss at C2-C3, C5-6, and C6-C7. There is a hemangioma at the superior endplate of the T2 vertebral body. The marrow signal is within normal limits, otherwise. The cord is normal in signal. No epidural or paraspinous fluid collection is appreciated. The visualized paraspinous soft tissues are within normal limits. The prevertebral soft tissues are within normal limits. At C2-C3: There is a broad-based disc bulge with minimal spinal canal narrowing. No significant neural foraminal narrowing. At C3-C4: Left-sided facet hypertrophy contributes to mild left-sided neural foraminal stenosis. At C4-C5: Facet hypertrophy is present bilaterally contributing to mild spinal canal narrowing right greater than left. At C5-C6: There is a broad-based disc bulge with facet and uncovertebral joint degenerative change contributing to moderate narrowing of the neural foramina right greater than left. There is also mild facet hypertrophy. There is mild spinal canal narrowing. At C6-C7: There is a broad-based disc bulge with facet and uncovertebral joint degenerative change. To moderate left and mild right neural foraminal narrowing with mild spinal canal narrowing. At C7-T1: There is a normal disc, central canal, and neural foramen. MR/MR cervical spine wo con IMPRESSION: No cord compression or cord signal abnormality. Disc, facet, and uncovertebral joint degenerative change contributes to varying degrees of spinal canal and neural foraminal narrowing which are most pronounced at C5-C6 and C6-C7, as above. Impression dictated by: Donald Jones M.D.04/23/2023 3:50 PM Dictation Location: [facility] Transcribed By: [facility] 04/23/23 1550 Dictated By: Donald Jones II, MD 04/23/23 6668 Signed By: 04/23/23 5370 [facility] XR cerv spine AP/LAT/FLX/EXT on 01-28-2023 XR cerv spine AP/LAT/FLX/EXT [facility] [employer] Other XR cerv spine AP/LAT/FLX/EXT [facility] [employer] Other XR cerv spine AP/LAT/FLX/EXT [address] [place] [address] [employer] Other XR cerv spine AP/LAT/FLX/[place] [address] [employer] Other XR cerv spine AP/LAT/FLX/EXT XRay Report [employer] Other XR cerv spine AP/LAT/FLX/EXT Signed [employer] Other XR cerv spine AP/LAT/FLX/EXT Patient: Cata Nichole MR#: [id number] [employer] Other XR cerv spine AP/LAT/FLX/EXT 2779 [employer] Other XR cerv spine AP/LAT/FLX/EXT : 1975 Acct:[id number] [employer] Other XR cerv spine AP/LAT/FLX/EXT Age/Sex: 47 / F ADM Date: 01/28/23 [employer] Other XR cerv spine AP/LAT/FLX/EXT Loc: [facility] Room: Type: [facility] [employer] Other XR cerv spine AP/LAT/FLX/EXT Attending Dr: Zeny Kaiser MD [employer] Other XR cerv spine AP/LAT/FLX/EXT Copies to: Zeny Kaiser MD [employer] Other XR cerv spine AP/LAT/FLX/EXT Ordering Provider: Zeny Kaiser MD [employer] Other XR cerv spine AP/LAT/FLX/EXT Date of Service: 01/28/23 [employer] Other XR cerv spine AP/LAT/FLX/EXT XR/XR cerv spine AP/LAT/FLX/EXT: PAIN [employer] Other XR cerv spine AP/LAT/FLX/EXT CERVICAL SPINE WITH FLEXION-EXTENSION VIEWS - 4 views [employer] Other XR cerv spine AP/LAT/FLX/EXT COMPARISON: None [employer] Other XR cerv spine AP/LAT/FLX/EXT CLINICAL DATA: Neck pain radiating to the right eye and down the left hand. No injury. [employer] Other XR cerv spine AP/LAT/FLX/EXT AP as well as lateral views in neutral, flexion and extension were obtained. There are no acute [employer] Other XR cerv spine AP/LAT/FLX/EXT fractures. No displacement or instability is seen. There is mild disc space narrowing at C6-7 [employer] Other XR cerv spine AP/LAT/FLX/EXT along with endplate spurring. There is additional minor plate spurring and facet sclerosis. No [employer] Other XR cerv spine AP/LAT/FLX/EXT prevertebral soft tissue swelling is identified. [employer] Other XR cerv spine AP/LAT/FLX/EXT XR/XR cerv spine AP/LAT/FLX/EXT [employer] Other XR cerv spine AP/LAT/FLX/EXT IMPRESSION: [employer] Other XR cerv spine AP/LAT/FLX/EXT MILD DEGENERATIVE CHANGE , PRIMARILY AT THE C6-7 LEVEL. [employer] Other XR cerv spine AP/LAT/FLX/EXT Impression dictated by: Pauline Fernandes M.D.01/28/2023 10:52 AM [employer] Other XR cerv spine AP/LAT/FLX/EXT Dictation Location: [place] [address] [employer] Other XR cerv spine AP/LAT/FLX/EXT Transcribed By: COURTNEY 01/28/23 1052 [employer] Other XR cerv spine AP/LAT/FLX/EXT Dictated By: Pauline Fernandes MD 01/28/23 1049 [employer] Other XR cerv spine AP/LAT/FLX/EXT Signed By: [employer] Other XR cerv spine AP/LAT/FLX/EXT 01/28/23 1052 [employer] Other XR cerv spine AP/LAT/FLX/EXT [facility] Main [place] [address] [place] [id number] XRay Report Signed Patient: Cata Nichole MR#: [id number] : 1975 Acct:[id number] Age/Sex: 47 / F ADM Date: 01/28/23 Loc: [facility] Room: Type: [facility] Attending Dr: Zeny Kaiser MD Copies to: Zeny Kaiser MD Ordering Provider: Zeny Kaiser MD Date of Service: 01/28/23 XR/XR cerv spine AP/LAT/FLX/EXT: PAIN CERVICAL SPINE WITH FLEXION-EXTENSION VIEWS - 4 views COMPARISON: None CLINICAL DATA: Neck pain radiating to the right eye and down the left hand. No injury. AP as well as lateral views in neutral, flexion and extension were obtained. There are no acute fractures. No displacement or instability is seen. There is mild disc space narrowing at C6-7 along with endplate spurring. There is additional minor plate spurring and facet sclerosis. No prevertebral soft tissue swelling is identified. XR/XR cerv spine AP/LAT/FLX/EXT IMPRESSION: MILD DEGENERATIVE CHANGE , PRIMARILY AT THE C6-7 LEVEL. Impression dictated by: Pauline Fernandes M.D.01/28/2023 10:52 AM Dictation Location: [place] [address] Transcribed By: [facility] 01/28/23 1052 Dictated By: Pauline Fernandes MD 01/28/23 1049 Signed By: 01/28/23 1052 Normal [facility] XR CHEST 2 Von 11-19-2022 XR CHEST 2 V EXAM: Chest x-ray HISTORY: . Cough . COMPARISON: 12/12/2021 TECHNIQUE: Frontal and lateral chest FINDINGS: Heart and vascularity are unremarkable. Lungs are expanded and free of focal infiltrates. No acute bony abnormality is appreciated. IMPRESSION: No acute heart or lung disease identified. Electronically authenticated by: JAZMINE LIAO Date: 2022-11-19 17:19 Normal [facility] XR shoulder RT min 2V*on XR shoulder RT min 2V* [facility] Main [address] [address] XRay Report Signed Patient: Cata Nichole MR#: [id number] : 1975 Acct:[id number] Age/Sex: 47 / F ADM Date: 09/22/22 Loc: [facility] Room: Type: [facility] Attending Dr: Zeny Kaiser MD Copies to: Zeny Kaiser MD Ordering Provider: Zeny Kaiser MD Date of Service: 09/22/22 XR/XR shoulder RT min 2V*: Pain in right shoulder RIGHT SHOULDER - - 4 views CLINICAL HISTORY: Right anterolateral shoulder pain for one month. COMPARISON: None FINDINGS: Minimal degenerative change of the AC joint without acute bony process. XR/XR shoulder RT min 2V* IMPRESSION: MINIMAL DEGENERATIVE CHANGE INVOLVING THE RIGHT SHOULDER WITHOUT ACUTE BONY PROCESS. Impression dictated by: Tin Martinez Jr., D.O.09/22/2022 4:40 PM Dictation Location: [place] [address] Transcribed By: [facility] 09/22/22 1640 Dictated By: Tin Martinez Jr, DO 09/22/22 1639 Signed By: 09/22/22 1640 Normal [facility] XR shoulder RT min 2V* [facility] [employer] Other XR shoulder RT min 2V* [facility] [employer] Other XR shoulder RT min 2V* [address] [place] [address] [employer] Other XR shoulder RT min 2V* [address] [employer] Other XR shoulder RT min 2V* XRay Report [employer] [facility] [employer] Other XR shoulder RT min 2V* Signed [employer] [facility] [employer] Other XR shoulder RT min 2V* Patient: Cata Nichole MR#: [id number] [place] [employer] Other XR shoulder RT min 2V* 2779 [employer] Other XR shoulder RT min 2V* : 1975 Acct:[id number] [employer] Other XR shoulder RT min 2V* Age/Sex: 47 / F ADM Date: 09/22/22 [employer] Other XR shoulder RT min 2V* Loc: [facility] Room: Type: REG CLI [employer] Other XR shoulder RT min 2V* Attending Dr: Zeny Kaiser MD [employer] Other XR shoulder RT min 2V* Copies to: Zeny Kaiser MD [employer] Other XR shoulder RT min 2V* Ordering Provider: Zeny Kaiser MD [employer] Other XR shoulder RT min 2V* Date of Service: 09/22/22 [employer] Other XR shoulder RT min 2V* XR/XR shoulder RT min 2V*: Pain in right shoulder [employer] Other XR shoulder RT min 2V* RIGHT SHOULDER - - 4 views [employer] Other XR shoulder RT min 2V* CLINICAL HISTORY: Right anterolateral shoulder pain for one month. [employer] Other XR shoulder RT min 2V* COMPARISON: None [employer] Other XR shoulder RT min 2V* FINDINGS: [employer] Other XR shoulder RT min 2V* Minimal degenerative change of the AC joint without acute bony process. [employer] Other XR shoulder RT min 2V* XR/XR shoulder RT min 2V* [employer] Other XR shoulder RT min 2V* IMPRESSION: [employer] Other XR shoulder RT min 2V* MINIMAL DEGENERATIVE CHANGE INVOLVING THE RIGHT SHOULDER WITHOUT ACUTE BONY PROCESS. [employer] Other XR shoulder RT min 2V* Impression dictated by: Tin Martinez Jr., D.OKayla09/22/2022 4:40 PM [employer] Other XR shoulder RT min 2V* Dictation Location: [place] [address] [employer] Other XR shoulder RT min 2V* Transcribed By: P[facility] 09/22/22 [facility] [employer] Other XR shoulder RT min 2V* Dictated By: Tin Martinez Jr, DO 09/22/22 1639 [employer] Other XR shoulder RT min 2V* Signed By: [employer] Other XR shoulder RT min 2V* 09/22/22 [facility] [employer] Other RESPIRATORY PANEL PLUSon Adenovirus Not detected Normal NOT DETECTED [facility] Comment on above: Performed By: #### R SPLUS #### [facility] [address] [place] [address] Dr. Aidan Mccain B. Parapertusis Not detected Normal NOT DETECTED [facility] Comment on above: Performed By: #### R SPLUS #### [facility] [address] [place] [address] Dr. Aidan Dunham. Pertussis Not detected Normal NOT DETECTED [facility] Comment on above: Performed By: #### R SPLUS #### [facility] [address] [place] [address] Dr. Aidan Mccain Chlamydia Pneumoniae Not detected Normal NOT DETECTED [facility] Comment on above: Performed By: #### R SPLUS #### [facility] [address] [place] [address] Dr. Aidan Mccain Coronavirus 229E Not detected Normal NOT DETECTED [facility] Comment on above: Performed By: #### R SPLUS #### [facility] [address] [place] [address] Dr. Aidan Mccain Coronavirus HKU1 Not detected Normal NOT DETECTED [facility] Comment on above: Performed By: #### R SPLUS #### [facility] [address] [place] [address] Dr. Aidan Mccain Coronavirus NL63 Not detected Normal NOT DETECTED [facility] Comment on above: Performed By: #### R SPLUS #### [facility] [address] [place] [address] Dr. Aidan Mccain Coronavirus OC43 Not detected Normal NOT DETECTED [facility] Comment on above: Performed By: #### R SPLUS #### [facility] [address] [place] [address] [address] Aidan Mccain Influenza A H1 2009 Not detected Normal NOT DETECTED [facility] Comment on above: Performed By: #### R SPLUS #### [facility] [address] [place] [address] Dr. Aidan Mccain Influenza A H3 Not detected Normal NOT DETECTED [facility] Comment on above: Performed By: #### R SPLUS #### [facility] [address] [place] [address] Dr. Aidan Mccain Influenza B Not detected Normal NOT DETECTED [facility] Comment on above: Performed By: #### R SPLUS #### [facility] [address] [place] [address] Dr. Aidan Mccain Metapneumovirus Not detected Normal NOT DETECTED [facility] Comment on above: Performed By: #### R SPLUS #### [facility] [address] [place] [address] Dr. Aidan Mccain Mycoplas. Pneumoniae Not detected Normal NOT DETECTED [facility] Comment on above: Performed By: #### R SPLUS #### [facility] [address] [place] [address] Dr. Aidan Mccain Parainfluenza 1 Not detected Normal NOT DETECTED [facility] Comment on above: Performed By: #### R SPLUS #### [facility] [address] [place] [address] Dr. Aidan Mccain Parainfluenza 2 Not detected Normal NOT DETECTED [facility] Comment on above: Performed By: #### R SPLUS #### [facility] [address] [place] [address] Dr. Aidan Mccain Parainfluenza 3 Not detected Normal NOT DETECTED [facility] Comment on above: Performed By: #### R SPLUS #### [facility] [address] [place] [address] Dr. Aidan Mccain Parainfluenza 4 Not detected Normal NOT DETECTED [facility] Comment on above: Performed By: #### R SPLUS #### [facility] [address] [place] [address] Dr. Aidan Mccain Rhino/Enterovirus Not detected Normal NOT DETECTED [facility] Comment on above: Performed By: #### R SPLUS #### [facility] [address] [place] [address] Dr. Aidan Mccain RP2 Header 1 RESPIRATORY PANEL: VIRUSES Normal [facility] Comment on above: Performed By: #### R SPLUS #### [facility] [address] [place] [address] Dr. Aidan Mccain RP2 Header 2 RESPIRATORY PANEL: BACTERIA Normal [facility] Comment on above: Performed By: #### R SPLUS #### [facility] [address] [place] [address] Dr. Aidan Mccain RSV Not detected Normal NOT DETECTED [facility] Comment on above: Performed By: #### R SPLUS #### [facility] [address] [place] [address] Dr. Aidan Mccain SARS-CoV-2 (COVID-19) RNA ELEUTERIO+probe Ql (Unsp spec) Not detected Normal NOT DETECTED [facility] Comment on above: Performed By: #### R SPLUS #### [facility] [address] [place] [address] Dr. Aidan Mccain XR LSPINE 2_3 VIEWSon 2021 XR LSPINE 2_3 VIEWS EXAM: XR LSPINE 2_3 VIEWS HISTORY: Back pain following fall COMPARISON: Lumbar spine MRI 01/23/2022 TECHNIQUE: 3 views FINDINGS: Maintenance of the normal lumbar lordosis. Stable gentle levocurvature of the lumbar spine. Vertebral body heights and alignments exhibit no fracture or listhesis. Stable L5-S1 intervertebral disc space narrowing. The remainder of the disc levels are unremarkable. Sacroiliac joints are normal. Moderate amount of stool throughout the colon and rectum. IMPRESSION: Moderate amount of stool throughout the colon and rectum Electronically authenticated by: JAZMINE HARVEY Date: 2022-06-27 18:37 Normal [facility] CULTURE URINEon 02-22-2022 CULTURE URINE Culture Observations : HEAVY GROWTH OF MIXED GENITAL DALTON. NO POTENTIAL PATHOGENS SEEN. Normal [facility] Comment on above: Performed By: #### U RCX #### [facility] [address] [place] [address] Dr. Aidan Mccain ER URINE PROFILEon 2 Bilirubin Ql (U) Negative Normal NEGATIVE [facility] Comment on above: Performed By: #### E RUR, UMICRO #### [facility] [address] [place] [address] Dr. Aidan Mccain Clarity (U) CLEAR Normal CLEAR [facility] Comment on above: Performed By: #### E RUR, UMICRO #### [facility] [address] [place] [address] Dr. Aidan Mccain Color (U) LT. YELLOW Normal YELLOW [facility] Comment on above: Performed By: #### E RUR UMICRO #### [facility] [address] [place] [address] Dr. Aidan HUNTGerardo A micrscopic examination will be performed if indicated. Normal [facility] Comment on above: Performed By: #### E RUXavi UMICRO #### [facility] [address] [place] [address] Dr. Aidan Mccain Glucose Ql (U) Negative Normal NEGATIVE [facility] Comment on above: Performed By: #### E RUXavi UMICRO #### [facility] [address] [place] [address] Dr. Aidan Mccain Hemoglobin Ql (U) Negative Normal NEGATIVE [facility] Comment on above: Performed By: #### E RUXavi UMICRO #### [facility] [address] [place] [address] Dr. Aidan Mccain Ketones Ql (U) Negative Normal NEGATIVE [facility] Comment on above: Performed By: #### Mariaelena CHUNG UMICRO #### [facility] [address] [place] [address] Dr. Aidan Mccain LEUKOCYTES SMALL Abnormal NEGATIVE [facility] Comment on above: Performed By: #### Mariaelena CHUNG UMICRO #### [facility] [address] [place] [address] Dr. Aidan Mccain Nitrite Ql (U) Negative Normal NEGATIVE [facility] Comment on above: Performed By: #### Mariaelena CHUNG, UMICRO #### [facility] [address] [place] [address] Dr. Aidan Mccain pH (U) 6.0 [pH] Normal 5-9 [facility] Comment on above: Performed By: #### Mariaelena CHUNG UMICRO #### [facility] [address] [place] [address] Dr. Aidan Mccain SPEC GRAVITY 1.020 Normal 1.005-<=1.025 [facility] Comment on above: Performed By: #### Mariaelena CHUNG UMICRO #### [facility] [address] [place] [address] Dr. Aidan Mccain UA PROTEIN Negative Normal NEGATIVE/ TRACE [facility] Comment on above: Performed By: #### Mariaelena CHUNG UMICRO #### [facility] [address] [place] [address] Dr. Aidan Mccain UR MICRO IND INDICATED Normal [facility] Comment on above: Performed By: #### Mariaelena CHUNG UMICRO #### [facility] [address] [place] [address] Dr. Aidan Mccain Urobilinogen Qn (U) 0.2 {Sami'U}/dL Normal 0.2 - 1. 0 [facility] Comment on above: Performed By: #### Mariaelena CHUNG UMICRO #### [facility] [address] [place] [address] Dr. Aidan Mccain URINE MICROSCOPIC ONLYon BACTERIA TRACE Abnormal NONE SEEN The [facility] Comment on above: Performed By: #### Mariaelena CHUNG UMICRO #### [facility] [address] [place] [address] Dr. Aidan Mccain Bacteria identified Cx Nom (U) INDICATED Normal [facility] Comment on above: Performed By: #### E SHELDON, UMICRO #### [facility] [address] [place] [address] Dr. Aidan Mccain CAST NONE SEEN Normal NONE SEEN [facility] Comment on above: Performed By: #### E RUR, UMICRO #### [facility] [address] [place] [address] Dr. Aidan Mccain Crystals LM Nom (Urine sed) NONE SEEN Normal NONE SEEN [facility] Comment on above: Performed By: #### E JODIR, UMICRO #### [facility] [address] [place] [address] Dr. Aidan Mccain Epithelial cells LM Ql (Urine sed) MANY Abnormal NONE SEEN /RARE [facility] Comment on above: Performed By: #### E SHELDON, UMICRO #### [facility] [address] [place] [address] Dr. Aidan Mccain MUCOUS NONE SEEN Normal NONE SEEN [facility] Comment on above: Performed By: #### Mariaelena CHUNG, UMICRO #### [facility] [address] [place] [address] Dr. Aidan Mccain RBC 2-5 Abnormal 0-2 [facility] Comment on above: Performed By: #### Mariaelena CHUNG UMICRO #### [facility] [address] [place] [address] Dr. Aidan Mccain WBC 5-10 Abnormal NONE SEEN [facility] Comment on above: Performed By: #### Mariaelena CHUNG UMICRO #### [facility] [address] [place] [address] Dr. Aidan Mccain MRI LSPINE WO CONon 01-24-20 MRI LSPINE WO CON EXAMINATION: MRI LSPINE WO CON HISTORY: Spondylosis without myelopathy ; acute lumbar pain radiating into legs COMPARISON: MRI lumbar spine 05/17/2020 TECHNIQUE: A variety of imaging planes and parameters were utilized for visualization of suspected pathology. FINDINGS: For the purposes of numbering, sagittal T2 image # 10 extends from the T11 vertebral body superiorly to the S3 level inferiorly. PARASPINAL AREA: Normal with no visible mass. BONES: No fracture, pars defect, or osseous lesion. CORD/CAUDA EQUINA: Normal caliber, contour, and signal intensity. DISC LEVELS: 12-L1: No significant disc/facet abnormality, spinal stenosis, or foraminal stenosis. L1-L2: Early degenerative disc disease is present without focal protrusion or neural impingement. L2-L3: No significant disc/facet abnormality, spinal stenosis, or foraminal stenosis. L3-L4: No significant disc/facet abnormality, spinal stenosis, or foraminal stenosis. L4-L5: No significant disc/facet abnormality, spinal stenosis, or foraminal stenosis. L5-S1: Mild central canal and moderate bilateral foramen narrowing secondary to broad-based disc protrusion/extrusion; 19 mm in width projecting 7 mm into the central canal and extending 6.5 mm below superior endplate of L5. This appears to contact and slightly impinge upon the descending S1 nerve roots. Moderate disc height reduction and mild degenerative facet arthropathy. IMPRESSION: 1. Slight progression of L5-S1 degenerative disc disease which may contribute to patient's symptoms. Electronically authenticated by: GIGI COLUNGA Date: 2022-01-23 17:37 Normal [facility] MG MAMM SCREEN 3D DAYANA CADon 01-20-2022 MG MAMM SCREEN 3D DAYANA CAD Patient: CATA NICHOLE Exam Date: 01/20/2022 : 1975 Gender:F Ordering : DR EDUARDO MAN M.D. Admission #: [id number] Family : DR BAPTISTE EDITH . Order #: [id number] CLICK HERE TO VIEW EXAM RADIOLOGY REPORT PROCEDURE: MAMMOGRAM SCREENING 3D BILATERAL CAD COMPARISON: MG MAMM SCREEN DAYANA W CAD, 05/17/2020. MG MAMM SCREEN DAYANA W CAD, 10/25/2018. INDICATIONS: Screening mammography Calculator Name NCI Breast Cancer Risk Assessment Tool 5 Year Breast Cancer Risk 1.50% Lifetime Breast Cancer Risk 14.10% Personal Breast Cancer No Personal Ovarian Cancer No Treatments None Family Cancers Grandmother-paternal with lupus cancer at age 68. LOCATION: [facility] BREAST COMPOSITION: Extremely dense, which lowers the sensitivity of mammography. FINDINGS: DIAGNOSTIC CATEGORY 1--NEGATIVE. RIGHT BREAST: No significant suspicious finding. No significant change has occurred. LEFT BREAST: No significant suspicious finding. No significant change has occurred. RECOMMENDATIONS: ROUTINE MAMMOGRAM AND CLINICAL EVALUATION IN 12 MONTHS. PLEASE NOTE: A NORMAL MAMMOGRAM DOES NOT EXCLUDE THE POSSIBILITY OF BREAST CANCER. A CLINICALLY SUSPICIOUS PALPABLE LUMP SHOULD BE BIOPSIED. Dictated by: Gigi Colunga M.D. on 01/20/2022 at 14:41 Approved by: Gigi Colunga M.D. on 01/20/2022 at 14:48 Normal [facility] XR CHEST 2 Von 12-12-2021 XR CHEST 2 V EXAM: XR CHEST 2 V HISTORY: Exacerbation of intermittent asthma COMPARISON: 06/20/2021 TECHNIQUE: PA and lateral views FINDINGS: Lungs are clear and heart size is normal. No pleural effusion or pneumothorax. Mild pulmonary hyperinflation is slight peribronchial thickening throughout which appears chronic. IMPRESSION: No acute findings Electronically authenticated by: JUNO CORTES Date: 2021-12-12 15:09 Normal [facility] Vital Signs Date Time Vital Sign Value Performing Clinician Facility 09-15-2023 08:39-0500 Body mass index (BMI) [Ratio] 20.6 kg/m2 Emy Palomares [employer] Work Phone: [facility] 09-15-2023 08:39-0500 Body weight 49.44 kg Emy Palomares [employer] Work Phone: [facility] 09-15-2023 08:39-0500 Diastolic blood pressure 82 mm[Hg] Emy Palomares [employer] Work Phone: [facility] 09-15-2023 08:39-0500 Heart rate 89 /min Emy Palomares [employer] Work Phone: [facility] 09-15-2023 08:39-0500 SaO2% (BldA) [Mass fraction] 98 % Emy Palomares [employer] Work Phone: [facility] 09-15-2023 08:39-0500 Systolic blood pressure 118 mm[Hg] Emy Palomares [employer] Work Phone: [facility] 07-08-2023 14:40-0500 Body height 157.48 cm Chapito Brush Other [facility] Other 07-08-2023 14:40-0500 Body mass index (BMI) [Ratio] 20.12 kg/m2 Chapito Brush Other [facility] Other 07-08-2023 14:40-0500 Body weight 49.9 kg Chapito Brush Other [facility] Other 06-29-2023 09:00-0500 Body height 157.48 cm Maurisio Karen Other [facility] Other 06-29-2023 09:00-0500 Body mass index (BMI) [Ratio] 21.03 kg/m2 Maurisio Karen Other [facility] Other 06-29-2023 09:00-0500 Body weight 52.16 kg Maurisio Karen Other [facility] Other 08-18-2022 15:40-0500 Body height 157.48 cm Chapito Brush Other [facility] Other 08-18-2022 15:40-0500 Body mass index (BMI) [Ratio] 20.99 kg/m2 Chapito Brush Other [facility] Other 08-18-2022 15:40-0500 Body weight 52.07 kg Chapito Brush Other [facility] Other 08-18-2022 15:40-0500 Diastolic blood pressure 82 mm[Hg] Chapito Brush Other [facility] Other 08-18-2022 15:40-0500 Systolic blood pressure 130 mm[Hg] Chapito Brush Other [facility] Other 06-02-2022 14:00-0400 Body height 157.48 cm Chapitomariaelena Brush Other [facility] Other 06-02-2022 14:00-0400 Body mass index (BMI) [Ratio] 21.03 kg/m2 Chapito Brush Other [facility] Other 06-02-2022 14:00-0400 Body weight 52.16 kg Chapito Brush Other [facility] Other 04-28-2022 16:00-0400 Body height 157.48 cm Zeny Kaiser Other [facility] Other 04-28-2022 16:00-0400 Body mass index (BMI) [Ratio] 21.03 kg/m2 Zeny Kyawallen Other [facility] Other 04-28-2022 16:00-0400 Body weight 52.16 kg Zeny Kaiser Other [facility] Other 03-10-2022 17:00-0400 Body height 157.48 cm Chapito Brush Other [facility] Other 03-10-2022 17:00-0400 Body mass index (BMI) [Ratio] 21.03 kg/m2 Chapito Brush Other [facility] Other 03-10-2022 17:00-0400 Body weight 52.16 kg Chapito Brush Other [facility] Other Encounters Encounter Date Encounter Type Care Provider Facility Start: 09-15-2023 Chart abstracting Emy aguilar [employer] Work Phone: [facility] Start: 09-15-2023 End: 09-15-2023 ambulatory EMY PALOMARES Not Available Start: 09-15-2023 End: 09-15-2023 Office outpatient visit 25 minutes Emy Palomares [employer] Work Phone: [facility] Comment on above: Chronic idiopathic c onstipation (Primary Dx) Start: 09-02-2023 End: 09-02-2023 ambulatory Maurisio Jones Other [facility] Other Start: 09-02-2023 Office outpatient vi sit 25 minutes Maurisio Jones [facility] Start: 08-19-2023 End: 08-19-2023 ambulatory Maurisio Jones Facility:[facility] Start: 08-19-2023 End: 08-19-2023 ambulatory II Eduardo Man Work Phone: [facility] Work Phone: Start: 08-19-2023 End: 08-19-2023 Patient encounter procedure II Eduardo Man Work Phone: [facility] [address] Work Phone: Start: 08-16-2023 End: 08-17-2023 ambulatory EMY PALOMARES Not Available Start: 08-04-2023 End: 08-04-2023 ambulatory EMY PALOMARES Not Available Start: 07-15-2023 End: 07-15-2023 ambulatory Maurisio Jones Other [facility] Other Start: 07-15-2023 Office outpatient vi sit 25 minutes Maurisio Jones [facility] Start: 07-13-2023 End: 07-13-2023 ambulatory Zeny Kaiser Other [facility] Other Start: 07-13-2023 Office outpatient vi sit 25 minutes Zeny Kaiser [facility] [place] Start: 07-08-2023 End: 07-08-2023 ambulatory Chapito Brush Other [facility] Other Start: 07-08-2023 Office outpatient vi sit 15 minutes Chapito Brush [facility] Start: 07-05-2023 (Procedure) Short Zeny Kaiser [facility] Start: 07-05-2023 End: 07-05-2023 ambulatory Zeny Felter Other [facility] Other Start: 06-29-2023 Office outpatient ne w 45 minutes Maurisio Jones [facility] Start: 06-29-2023 End: 06-29-2023 ambulatory Maurisio Johnosn Karen [facility] Other Start: 06-29-2023 End: 06-29-2023 Patient encounter procedure II Eduardo Man Work Phone: [facility] Start: 06-17-2023 End: 06-17-2023 ambulatory Zeny Carder Other [facility] Other Start: 06-17-2023 Office outpatient vi sit 25 minutes Zeny Kaiser [facility] [place] Start: 05-06-2023 End: 05-06-2023 ambulatory Zeny Kaiser Other [facility] Other Start: 05-06-2023 Office outpatient vi sit 15 minutes Zeny Carder [facility] [place] Start: 04-23-2023 End: 04-23-2023 ambulatory Zeny Kaiser Facility:[facility] Start: 04-23-2023 End: 04-23-2023 ambulatory II Eduardo Man Work Phone: [facility] Work Phone: Start: 04-23-2023 End: 04-23-2023 Patient encounter procedure II Eduardo Man Work Phone: [facility] [address] [place] Work Phone: Start: 04-14-2023 (Procedure) Short eZny Kaiser [facility] Start: 04-14-2023 End: 04-14-2023 ambulatory Zeny Carder Other [facility] Other Start: 04-01-2023 End: 04-01-2023 ambulatory Zeny Carder Other [facility] Other Start: 04-01-2023 Telephone encounter Zeny M[facility]dez [facility] Start: 03-30-2023 End: 03-30-2023 ambulatory Zeny Kaiser Other [facility] Other Start: 03-30-2023 Office outpatient vi sit 25 minutes Zeny Kyawallen [facility] [place] Start: 03-15-2023 End: 03-15-2023 ambulatory Zeny Kaiser Other [facility] Other Start: 03-15-2023 Telephone encounter Zeny M[facility]dez [facility] Start: 02-18-2023 End: 02-18-2023 ambulatory Zeny Kaiser Other [facility] Other Start: 02-18-2023 Office outpatient vi sit 15 minutes Zeny Kaiser [facility] [place] Start: 01-28-2023 Office outpatient vi sit 25 minutes Zeny Kaiser [facility] [place] Start: 01-28-2023 End: 01-28-2023 ambulatory II Eduardo Man Work Phone: [facility] Other Start: 01-28-2023 End: 01-28-2023 Patient encounter procedure II Eduardo Man Work Phone: [facility] Start: 01-06-2023 (Procedure) Short Zeny Kaiser [facility] Start: 01-06-2023 End: 01-06-2023 ambulatory Ezny Kyawallen Other [facility] Other Start: 12-21-2022 End: 12-21-2022 ambulatory Zeny Kyawallen Other [facility] Other Start: 12-21-2022 Office outpatient vi sit 25 minutes Zeny Kaiser [facility] [place] Start: 11-19-2022 End: 11-20-[address] PAULINE JUAREZ Facility:[facility] Start: 11-02-2022 End: 11-02-2022 ambulatory Zeny Kaiser Other [facility] Other Start: 11-02-2022 Telephone encounter Zeny M[facility]dez [facility] Start: 09-22-2022 End: 09-22-2022 ambulatory Zeny Kaiser Facility:[facility] Start: 09-22-2022 End: 09-22-2022 Patient encounter procedure II Eduardo Man Work Phone: [facility] Start: 09-22-2022 End: 09-22-2022 ambulatory II Eduardo Man Work Phone: [facility] Work Phone: Start: 09-22-2022 Office outpatient vi sit 15 minutes Zeny Kaiser [facility] [place] Start: 08-18-2022 End: 08-18-2022 ambulatory Chapito Brush Other [facility] Other Start: 08-18-2022 Office outpatient vi sit 15 minutes Chapito Brush [facility] Start: 08-11-2022 End: 08-11-2022 ambulatory Zeny Kaiser Other [facility] Other Start: 08-11-2022 Office outpatient vi sit 15 minutes Zeny Kaiser [facility] [place] Start: 07-20-2022 (Procedure) Short Zeny Kaiser [facility] Start: 07-20-2022 End: 07-20-2022 ambulatory Zeny Kaiser Other [facility] Other Start: 07-06-2022 (Procedure) Kalen Kaiser [facility] Start: 07-06-2022 End: 07-06-2022 ambulatory Zeny Kaiser Other [facility] Other Start: 06-29-2022 End: 06-29-[address] PAULINE JUAREZ Facility:[facility] Start: 06-27-2022 End: 06-27-2022 ambulatory SERGIO RAE Facility:[facility] Start: 06-22-2022 End: 06-22-2022 ambulatory Zeny Kaiser Other [facility] Other Start: 06-22-2022 Office outpatient vi sit 25 minutes Zeny Kaiser [facility] [place] Start: 06-02-2022 End: 06-02-2022 ambulatory Chapito Brush Other [facility] Other Start: 06-02-2022 Office outpatient vi sit 15 minutes Chapito Brush [facility] Start: 05-25-2022 End: 05-25-2022 ambulatory Zeny Kaiser Other [facility] Other Start: 05-25-2022 Telephone encounter Zeny WYATT G [facility] [place] Start: 04-30-2022 End: 04-30-2022 ambulatory Zeny Kaiser Other [facility] Other Start: 04-30-2022 Telephone encounter Zeny WYATT G [employer] Start: 04-28-2022 End: 04-28-2022 ambulatory Zeny Kaiser Other [facility] Other Start: 04-28-2022 Office consultation new/estab patient 60 min Zeny Kaiser [facility] [place] Start: 03-18-2022 End: 03-18-2022 ambulatory Chapito Brush Other [facility] Other Start: 03-18-2022 Telephone encounter Chapito Brush [facility] Start: 03-10-2022 End: 03-10-2022 Patient encounter procedure II Eduardo Man Work Phone: [facility] Start: 03-10-2022 End: 03-10-2022 ambulatory Chapito Brush Other [facility] Other Start: 03-10-2022 Office outpatient ne w 30 minutes Chapitomariaelena Brush [facility] Start: 02-27-2022 End: 02-28-2022 ambulatory BHASKAR KHAN . Facility:[facility] Start: 02-22-2022 End: 02-22-[address] FERNANDO CLARK . Facility:[facility] Start: 02-11-2022 End: 02-12-2022 ambulatory ALICIA WAGONER Facility:[facility] Start: 01-23-2022 End: 01-24-2022 ambulatory ALICIA WAGONER Facility:[facility] Start: 01-20-2022 End: 01-21-[address] EDUARDO MAN Facility:[facility] Start: 12-12-2021 End: 12-13-[address] PAULINE JUAREZ Facility:[facility] Procedures Date Procedure Procedure Detail Performing Clinician Start: 08-19-2023 MRI of right shoulder II Eduardo Man Work Phone: Start: 06-29-2023 Plain X-ray of bilateral shoulders II Eduardoautumn Man Work Phone: Start: 04-23-2023 XR pre/post mri xray II Eduardo Man Work Phone: Start: 04-23-2023 MRI of cervical spine without contrast II Eduardo Man Work Phone: Start: 01-28-2023 X-ray of cervical spine II Eduardo Man Work Phone: Start: 09-22-2022 Plain X-ray of right shoulder II Eduardo Man Work Phone: Start: 03-10-2022 Pelvis X-ray II Eduardo Man Work Phone: Start: 03-10-2022 X-ray of lumbar spine, six views including bending views II Eduardo Man Work Phone: Start: 01-20-2022 Mammography Emy Palomares [employer] Work Phone: Start: 07-18-2020 Microscopic observation [Identifier] in Cervix by Cyto stain Emy Palomares [employer] Work Phone: Start: 01-23-2019 Colonoscopy Emy Palomares [employer] Work Phone: Start: 09-10-2015 H/O: hysterectomy History of partial hysterectomy Emy Palomares NP Work Phone: Plan of Treatment Date Care Activity Detail Author Start: 01-23-2029 Screening for malign ant neoplasm of colon [facility] Start: 02-06-2024 Influenza vaccination Influenza Vacc ine (#1) [facility] Comment on above: Postponed from 04/09 (Patient Refused) Start: 09-15-2023 End: 09-15-2023 Patient encounter procedure 09/15/2023 8:30 AM EST Office Visit [facility] [address] [facility] [address] [place] [address] Emy Palomares NP [address] [facility] [address] [place] [address] [facility] Start: 07-18-2023 Screening for malign ant neoplasm of cervix [facility] Start: 01-20-2023 Screening for malign ant neoplasm of breast Mammogram [facility] Start: 2007 Screening for malign ant neoplasm of cervix HPV/Cotest [facility] Start: 1975 Screening for malign ant neoplasm of colon [facility] Immunizations Immunization Date Immunization Notes Care Provider Fa cili 06-22-2014 seasonal influenza, intradermal, preservative free Emy Palomares [employer] Work Phone: [facility] 06-22-2014 influenza virus vacc ine, unspecified formulation Emy Palomares [employer] Work Phone: [facility] 01-28-1999 measles, mumps and rubella virus vaccine Emy Palomares NP Work Phone: [facility] Payers Date Payer Category Payer Unknown BCBS BCBS [id number] 2022-Present [phone] [address] [place] [address] [id number] 2022 Self-pay [id number] 1975 Unknown [id number] 2.16.840.1.184266.3.579.2. 593 1975 Unknown [id number] 2.16.840.1.001779.3.579.2. 593 1977 Unknown [id number] 2.16.840.1.690798.3.579.2. 593 1977 Unknown [id number] 2.16.840.1.396092.3.579.2. 593 1977 Unknown [id number] 2.16.840.1.669251.3.579.2. 593 1977 Unknown [id number] 2.16.840.1.255878.3.579.2. 593 1977 Unknown [id number] 2.16.840.1.274565.3.579.2. 593 1977 Unknown [id number] 2.16.840.1.562778.3.579.2. 593 1977 Unknown [id number] 2.16.840.1.211224.3.579.2. 593 1977 Unknown [id number] 2.16.840.1.161018.3.579.2. 1259 1977 Unknown [id number] 2.16.840.1.280015.3.579.2. 1259 1977 Unknown [id number] 2.16.840.1.987520.3.579.2. 1259 1977 Unknown [id number] 2.16.840.1.385299.3.579.2. 1259 1959 Blue Cross Blue Shield [id number] 2.16.840.1.890723. 1959 Blue Cross Blue Shield [id number] 2.16.840.1.060488. 1959 Unknown [id number] 2.16.840.1.430086. 1959 Unknown [id number] 1959 Unknown [id number] Private Health Insurance [facility] [id number] Unknown [employer] [id number] Unknown [id number] 2.16.840.1.128613.3.579.2. 531 Unknown [id number] 2.16.840.1.125384.3.579.2. 531 Unknown [id number] 2.16.840.1.544272.3.579.2. 531 Unknown [id number] 2.16.840.1.590988.3.579.2. 531 Unknown [id number] 2.16.840.1.376419.3.579.2. 531 Social History Date Type Detail Facility Start: 08-04-2023 End: 09-15-2023 Sex Assigned At [facility] Work Phone: Start: 01-23-2019 End: 01-23-2019 Tobacco smoking status NHIS Smoker (finding) [facility] Start: 1975 Sex Assigned At Female F [facility] Start: 04-22-2023 Tobacco smoking stat [facility] Smokes tobacco daily [facility] History of tobacco use Cigarette Smoker [facility] Start: 04-22-2023 End: 09-15-2023 Cigarettes smoked current (pack per day) - Reported 0.5 [facility] Start: 04-22-2023 Tobacco use and exposure Smokeless tobacco non-user [facility] Start: 09-14-2023 End: 09-15-2023 Alcohol intake Current drinker of alcohol (finding) [facility] Start: 04-22-2023 Tobacco Comment 6-10 cigs/dayT hinking about quitting [facility] Start: 05-23-2023 Alcohol Comment Caffeine intak e : 1-2 cups per day / 3 cups per day of coffee [facility] Start: 1975 Sex Assigned At Not on file [facility] Clinical Notes 06-27-2013 to 09-15-2023 Emy Palomares, DRY CHAIN PULLER - 09/15/2023 8:30 AM EST Note Date & Type Note Facility 09-15-2023 History of Presen t illness Narrative Subjective Patient ID: Cata Leo Karlsruhe is a 48 y.o. female who presents for Constipation. Pt has been taking magnesium and states she does feel full ,very bloated, very gassy, not really able to eat . Pt suggested dr benavides she has seen him before , would like to go forward with a colonoscopy Constipation This is a recurrent problem. The current episode started more than 1 month ago. The problem has been gradually worsening since onset. Her stool frequency is 1 time per day (small bowel movement). The stool is described as firm, pencil thin, pellet like and formed (stools looks different on different days). The patient is on a high fiber diet. She Exercises regularly. There has Been adequate water intake. Associated symptoms include abdominal pain, back pain, bloating, flatus and nausea. Risk factors: nothing has changed. She has tried laxatives, stool softeners, fiber and diet changes for the symptoms. The treatment provided no relief. Her past medical history is significant for irritable bowel syndrome. Current Outpatient Medications on File Prior to Visit Medication Sig Dispense Refill albuterol HFA 90 mcg/act inhaler Inhale 2 puffs every 4 (four) hours if needed for wheezing or shortness of breath. 18 g 5 b complex-folic acid tablet Take 1 tablet by mouth in the morning. Bee Pollen 500 MG chewable tablet Chew 1 tablet in the morning. biotin 10 MG tablet every 12 (twelve) hours. buPROPion XL (Wellbutrin XL) 150 MG 24 hr tablet 1 (one) time each day at the same time. cholecalciferol (Vitamin D-3) 50 MCG (2000 UT) capsule 1 capsule 1 (one) time each day at the same time. cyanocobalamin (Vitamin B-12) 100 MCG tablet Take 100 mcg by mouth in the morning. cyclobenzaprine (Flexeril) 10 MG tablet Take 10 mg by mouth 3 (three) times a day as needed. diazePAM (Valium) 5 MG tablet Take 1 tablet (5 mg) by mouth in the morning and 1 tablet (5 mg) before bedtime. 60 tablet 0 docusate sodium (Colace) 100 MG capsule Take 100 mg by mouth in the morning. fluticasone (Flonase) 50 MCG/ACT nasal spray SPRAY 1 SPRAY INTO EACH NOSTRIL EVERY DAY gabapentin (Neurontin) 100 MG capsule Take 3 capsules (300 mg) by mouth in the morning and 3 capsules (300 mg) before bedtime. 200 capsule 3 HYDROcodone-acetaminophen ([place]on) 5-325 MG tablet Take 1 tablet by mouth every 6 (six) hours 120 tablet 0 linaCLOtide (Linzess) 290 MCG capsule Take 1 capsule (290 mcg) by mouth 1 (one) time each day at the same time. 90 capsule 3 meclizine (Antivert) 25 MG tablet Take 1 tablet (25 mg) by mouth every 6 (six) hours if needed for dizziness. 120 tablet 2 montelukast (Singulair) 10 MG tablet 1 (one) time each day at the same time. Multiple Vitamin (multivitamin) tablet Take 1 tablet by mouth in the morning. omeprazole (PriLOSEC) [address] capsule TAKE 1 CAPSULE BY MOUTH EVERY DAY 90 capsule 3 ondansetron ODT (Zofran-ODT) 4 MG disintegrating tablet Take 1 tablet (4 mg) by mouth every 6 (six) hours if needed for nausea or vomiting. 20 tablet 5 OXcarbazepine (Trileptal) 150 MG tablet TAKE 1 TABLET BY MOUTH TWICE A DAY FOR 30 DAYS for 30 plecanatide (Trulance) tablet tablet Take 1 tablet (3 mg) by mouth in the morning. 90 tablet 3 No current facility-administered medications on file prior to visit. Allergies Allergen Reactions Venlafaxine Hcl Other Reaction(s): hypersensativity, Hypersensitivity Social History Tobacco Use Smoking status: Every Day Packs/day: .5 Types: Cigarettes Smokeless tobacco: Never Tobacco comments: 6-10 cigs/day Thinking about quitting Substance Use Topics Alcohol use: Yes Alcohol/week: 2.0 standard drinks of alcohol Types: 2 Standard drinks or equivalent per week Comment: Caffeine intake : 1-2 cups per day / 3 cups per day of coffee Drug use: Never Family History Problem Relation Name Age of Onset Other (MTHFR C677T) Mother Other (CVA) Father 2018 Heart disease Father No Known Problems Sister Bipolar disorder Brother ADD / ADHD Brother half brother Mental illness Maternal Grandmother Heart disease Paternal Grandfather Coronary artery disease Other Family Hx Other () Other Family Hx x2 (1 with twins),, no live births 21 weeks Past Medical History: Diagnosis Date Allergic rhinitis, unspecified Asthma (CMS/HCC) Cigarette smoker couple ER visits 06/2016 COVID-19 10/2022 Endometriosis fibroids -- had partial hyst, has both ovaries Esophageal reflux Had Invitrio for 1st Intermittent leg &nerve numbness herniated disc Dr Gigi Tate Lesions Exp Lab 11/2015 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 Rubella with 2nd Past Surgical History: Procedure Laterality Date COLONOSCOPY W/ POLYPECTOMY 2012 EGD 2012 w/ biopsy EMG 2013 [address] lower [address] Tate EXPLORATORY LAPAROTOMY 11/[address] Bergman LUMBAR DISCECTOMY 2013 L5-S1 [address] Pagan OTHER SURGICAL HISTORY Bilateral Facet Blocks L4-S1 05/13/2020, 07/17/2020, 09/09/2020, 11/04/2020, 03/07/2021 OTHER SURGICAL HISTORY Bilateral Facet Injections L4-L5 08/19/2021, 12/09/2021 PARTIAL HYSTERECTOMY 2008 TX EDG TRANSORAL BIOPSY SINGLE/MULTIPLE 2012 TX INJECT TENDON SHEATH/LIGAMENT 06/2015 mid back and hips Visit Vitals Smoking Status Every Day Review of Systems Constitutional: Negative. HENT: Negative. Eyes: Negative. Respiratory: Negative. Cardiovascular: Negative. Gastrointestinal: Positive for abdominal pain, bloating, constipation, flatus and nausea. Genitourinary: Negative. Musculoskeletal: Positive for back pain. Neurological: Negative. Psychiatric/Behavioral: Negative. Hematological: Negative. Endocrine: Negative. Objective Physical Exam Vitals reviewed. Constitutional: Appearance: Normal appearance. HENT: Head: Normocephalic. Cardiovascular: Rate and Rhythm: Normal rate. Pulses: Normal pulses. Pulmonary: Effort: Pulmonary effort is normal. Abdominal: General: Abdomen is protuberant. Bowel sounds are decreased. Palpations: Abdomen is soft. Tenderness: There is abdominal tenderness in the right upper quadrant. Skin: General: Skin is warm and dry. Neurological: General: No focal deficit present. Mental Status: She is alert and oriented to person, place, and time. Psychiatric: Mood and Affect: Mood normal. Behavior: Behavior normal. Assessment/Plan Diagnoses and all orders for this visit: Chronic idiopathic constipation - Ambulatory referral to Gastroenterology; Future Drink plenty of fluids, enough so that your urine is light yellow or clear like water. At least 1/2 body weight in water each day. Include high-fiber foods in your diet each day. These include fruits, vegetables, beans, and whole grains. Get at least 30 minutes of exercise on most days of the week. Take a fiber supplement, such as Citrucel or Metamucil, every day. Probiotics recommended also. Schedule time each day for a bowel movement. A daily routine may help. Take your time having your bowel movement. No follow-ups on file. documented in this encounter [facility] 09-02-2023 Evaluation note Encounter Date Diagnosis Assessment Notes Aug, Pain in right shoulder (ICD-10 - M25.511) We discussed physical exam findings as well as MRI imaging. It appears she has chronic pain in both shoulders and neck. MRI did not show any significant pathology that would warrant any surgical intervention this time. I discussed that she can continue conservative management. I do believe she can continue to get better with physical therapy with overall scapular stabilizing exercises as well as rotator cuff exercises. At this point, she does admit that most of her pain is coming from her neck. I recommend that she follow-up to try to get some relief from her neck pain first and then to reinitiate physical therapy. All questions were answered. Patient to follow-up with me as needed Aug, Internal derangement of right shoulder (ICD-10 - M24.811) Aug, Other chronic pain (ICD-10 - G89.29) Aug, Other This documentation is being amended on 09/06/23 due to an internal data corruption event that occurred on 09/02/23. This data corruption event was NOT the result of any breach, fraud, or malicious third democrat actors and no personal patient information was compromised. [facility] Other 12-07-2023 Evaluation note* Encounter Date Diagnosis Assessment Notes Treatment Notes Treatment Clinical Notes Jul, Pain in right shoulder (ICD-10 - M25.511) Jul, Internal derangement of right shoulder (ICD-10 - M24.811) Discussed with patient based off her exam and symptoms I would recommed an MRI. I have a high suspicion of a rotator cuff tear based on the history of symptoms and physical exam findings. An MRI will be necessary to plan further treatment options and potential surgey. Patient given MRI information sheet Jul, Other chronic pain (ICD-10 - G89.29) [facility] Other 12-05-2023 Evaluation note* Encounter Date Diagnosis Assessment Notes Treatment Notes Treatment Clinical Notes Jul, Other spondylosis with radiculopathy, cervical region (ICD-10 - M47.22) Jul, Cervical arthritis (ICD-10 - M47.812) Patients radiating symptoms have resolved following a recent cervical epidural steroid injection however she continues to voice complaints of cervical pain. Her symptoms appear consistent with degenerative changes of the facet joints. We discussed proceeding with cervical facet medial branch blocks and subsequent radiofrequency ablation however the patient states her symptoms remain tolerable at this time. She will call into the office to schedule should her pain progress. We will follow up with the patient in three months, sooner if needed. Anatomy of spine discussed in detail with patient in regards to patients condition. Overall, patient believes their pain is reasonably well controlled and she is in agreement with our treatment plan. Jul, Shoulder pain (ICD-10 - M25.519) Patient continues to voice complaints of shoulder pain. She was encouraged to follow up with orthopedics and their recommendations. Jul, Spondylosis of lumbosacral region without myelopathy or radiculopathy (ICD-10 - M47.817) Patient is voicing minimal complaints of pain at this time. She attributes this to a recent bilateral lumbar facet radiofrequency ablation. We will continue to monitor her symptoms in this region. Anatomy of spine discussed in detail with patient in regards to patients condition. Overall, patient believes their pain is reasonably well controlled and she agrees with our treatment plan. Jul, Chronic pain (ICD-10 - G89.29) Jul, Other Above note writ ten by Polo Andino MA, Osteopathic Resident. Edited and approved by Dr. Zeny Kaiser MD. [facility] Other 11-30-2023 Evaluation note* Encounter Date Diagnosis Assessment Notes Treatment Notes Treatment Clinical Notes Jun, Spondylosis of lumbosacral region without myelopathy or radiculopathy (ICD-10 - M47.817) This patient has palpable Posterior neck tenderness and shoulders are painful with movement. Her neck MRI was reviewed I agree with the report. I see no evidence for surgical intervention with this patient. In general the foramen are generally open and she has no significant cord compression. My recommendation is pain management I answered questions for her and her significant other that was with her and I believe the patient understands my rationale. Jun, Spondylolisthesis, lumbosacral region (ICD-10 - M43.17) [facility] Other 11-21-2023 Evaluation note* Encounter Date Diagnosis Assessment Notes Treatment Notes Treatment Clinical Notes Jun, Pain in right shoulder (ICD-10 - M25.511) Images were reviewed with patient. She does not feel much pain and has good strength on exam. She appears to be suffering from chronic shoulder pain with activity. Instructed she continues to work with therapy and stressed the importance of working on the exercises at home. We discussed quitting smoking can help reduce her symptoms. At this time, I feel her symptoms with improve with conservative treatment in the form of therapy and a corticosteroid injection. A right shoulder 4/1cc marcaine / kenalog cortisone injection was performed into the right shoulder subacromial space under sterile technique. Patient tolerated the injection well with no adverse reaction. She can follow up with me on an as needed basis. If her symptoms persist we will consider obtaining an MRI for further assessment. Jun, Other chronic pain (ICD-10 - G89.29) [facility] Other 11-09-2023 Evaluation note* Encounter Date Diagnosis Assessment Notes Treatment Notes Treatment Clinical Notes Jun, Other spondylosis with radiculopathy, cervical region (ICD-10 - M47.22) Patients primary complaint today is progressing cervical pain radiating into her right upper extremity. She reports numbness and tingling as well as weakness throughout the right upper extremity. She has failed previous conservative treatments and continues to experience progressing symptoms. Recent MRI results show evidence of multilevel degenerative changes, foraminal narrowing and spinal stenosis. It was discussed this is possibly contributing to her pain symptoms. Based on these results, as well as location of pain and exam findings, patient is a candidate for a cervical epidural steroid injection which we will proceed with. Risks and benefits of procedure explained to patient; patient verbalizes understanding. Anatomy of spine discussed in detail with patient in regards to patients condition. Jun, Shoulder pain (ICD-10 - M25.519) Patient is also voicing complaints of bilateral shoulder pain. Previous imaging results show evidence of minimal degenerative changes. I will refer the patient to orthopedics to further evaluate if this is a cervical radiculopathy the shoulders. Jun, Spondylosis of lumbosacral region without myelopathy or radiculopathy (ICD-10 - M47.817) Patient is voicing minimal complaints of pain at this time. She attributes this to a recent bilateral lumbar facet radiofrequency ablation. We will continue to monitor her symptoms in this region. Anatomy of spine discussed in detail with patient in regards to patients condition. Overall, patient believes their pain is reasonably well controlled and she agrees with our treatment plan. Jun, Chronic pain (ICD-10 - G89.29) Jun, Other Above note writ ten by Polo Andino MA, Osteopathic Resident. Edited and approved by Dr. Zeny Kaiser MD. [place] [facility] Other 09-28-2023 Evaluation note* Encounter Date Diagnosis Assessment Notes Treatment Notes Treatment Clinical Notes Apr, Other spondylosis with radiculopathy, cervical region (ICD-10 - M47.22) Patients primary complaint today is cervical neck pain radiating into her right upper extremity. She has failed previous conservative treatments and continues to experience progressing symptoms. We will start treatment with physical therapy. In the future if the pain persists, we can consider cervical epidural steroid injections. Anatomy of spine discussed in detail with patient in regard to patients condition. We will follow up with her in six weeks sooner if needed. Apr, Spondylosis of lumbosacral region without myelopathy or radiculopathy (ICD-10 - M47.817) Patient is voicing minimal complaints of pain at this time. She attributes this to a recent bilateral lumbar facet radiofrequency ablation. We will continue to monitor her symptoms in this region. Anatomy of spine discussed in detail with patient in regards to patients condition. Overall, patient believes their pain is reasonably well controlled and she agrees with our treatment plan. Apr, Right shoulder pain (ICD-10 - M25.511) Patient is voicing complaints of increasing shoulder pain. She has failed previous conservative treatments and continues to experience progressing symptoms. I will order an MRI of her right shoulder for further evaluation of her pain symptoms. Pending the results, we can consider a referral to orthopedics vs further treatment options. Apr, Muscle pain, cervical (ICD-10 - M54.2) Patient is voicing minimal complaints of cervical muscle pain at this time. She attributes this to a recent cervical parapsinal and trapezius trigger point injections. We will continue to monitor her symptoms in this region. In the future if the pain persists, we can consider repeating trigger point injections. Overall, patient believes their pain is reasonably well controlled and she agrees with our treatment plan. Apr, Chronic pain (ICD-10 - G89.29) Apr, Other Above note writ ten by Andreea Colon LPN, Osteopathic Resident. Edited and approved by Dr. Zeny Kaiser MD. [place] [facility] Other 08-22-2023 Evaluation note* Encounter Date Diagnosis Assessment Notes Treatment Notes Treatment Clinical Notes Mar, Other spondylosis with radiculopathy, cervical region (ICD-10 - M47.22) Patients primary complaint today is cervical neck pain radiating into her right upper extremity. She has failed previous conservative treatments and continues to experience progressing symptoms. I will order an MRI of her cervical spine for further evaluation of her pain symptoms. Pending the results, we can consider a referral to neurosurgery vs further treatment options. Anatomy of spine discussed in detail with patient in regards to patients condition. Mar, Spondylosis of lumbosacral region without myelopathy or radiculopathy (ICD-10 - M47.817) We discussed treatment options for the patient's persistent low back pain. She shows notable pain consistent with degenerative changes of the lumbar spine. Given previous positive results as well as exam findings, patient is a reasonable candidate for repeat bilateral lumbar facet radiofrequency ablation under fluoroscopic guidance, which we will proceed with. Risks and benefits of procedure explained to patient; patient verbalizes understanding. Anatomy of spine discussed in detail with patient in regard to patients condition. Mar, Right shoulder pain (ICD-10 - M25.511) Patient is voicing complaints of increasing shoulder pain. She has failed previous conservative treatments and continues to experience progressing symptoms. I will order an MRI of her right shoulder for further evaluation of her pain symptoms. Pending the results, we can consider a referral to orthopedics vs further treatment options. Mar, Muscle pain, cervical (ICD-10 - M54.2) Patient is voicing minimal complaints of cervical muscle pain at this time. She attributes this to a recent cervical parapsinal and trapezius trigger point injections. We will continue to monitor her symptoms in this region. Overall, patient believes their pain is reasonably well controlled and she agrees with our treatment plan. Mar, Chronic pain (ICD-10 - G89.29) Mar, Other Above note writ ten by Andreea Colon LPN, Osteopathic Resident. Edited and approved by Dr. Zeny Kaiser MD. [facility] Other 07-13-2023 Evaluation note* Encounter Date Diagnosis Assessment Notes Treatment Notes Treatment Clinical Notes Feb, Spondylosis without myelopathy or radiculopathy, cervical region (ICD-10 - M47.812) Patient continues to experience cervical pain. She was encouraged to continue with bilateral cervical facet medial branch nerve blocks in the coming weeks as scheduled. Anatomy of spine discussed in detail with patient in regards to patients condition. Feb, Muscle pain, cervical (ICD-10 - M54.2) Patients primary complaint today is returning muscular pain and demonstrates notable muscle tenderness bilaterally into trapezius and paraspinal regions. Given previous positive results, as well as location of pain and exam findings, patient is a candidate for repeat cervical parapsinal and trapezius trigger point injections which we will proceed with today in the office. Risks and benefits of procedure explained to patient; patient verbalizes understanding. Patient tolerated well. Anatomy of spine discussed in detail with patient in regards to patients condition. Feb, Chronic pain (ICD-10 - G89.29) Feb, Other Above note writ ten by Polo Andino MA, Osteopathic Resident. Edited and approved by Dr. Zeny Kaiser MD. [facility] Other 06-22-2023 Evaluation note* Encounter Date Diagnosis Assessment Notes Treatment Notes Treatment Clinical Notes Jan, Osteoarthritis of spine with radiculopathy, lumbar region (ICD-10 - M47.26) Tolerable at this time following recent lumbar epidural steroid injections. We will continue to monitor and proceed with future treatment to the area as needed. Anatomy of spine discussed in detail with patient in regard to patients condition. Overall, patient believes their pain is reasonably well controlled in this area and she is in agreement with our treatment plan. Jan, Spondylosis without myelopathy or radiculopathy, cervical region (ICD-10 - M47.812) Patients primary complaint today progressing cervical pain. Updated xrays were obtained today in office. She shows notable pain consistent with degenerative changes of the cervical spine. We discussed the possible benefit of treatment of the facet region for cervical pain. Patient is a reasonable candidate for diagnostic bilateral cervical facet medial branch nerve blocks which we will proceed with. It was further explained should this provide significant short term relief we will proceed with a repeat block and subsequent radiofrequency ablation. Another consideration could be trigger point injections to target the patients muscle tenderness. Anatomy of spine discussed in detail with patient in regards to patients condition. Jan, Spondylosis of lumbosacral region without myelopathy or radiculopathy (ICD-10 - M47.817) Patient is voicing minimal complaints of pain at this time. She attributes this to a recent bilateral lumbar facet radiofrequency ablation under fluoroscopic guidance. We will continue to monitor her symptoms in this region. Anatomy of spine discussed in detail with patient in regard to patients condition. Overall, patient believes their pain is reasonably well controlled in this area and she is in agreement with our treatment plan. Jan, Chronic pain (ICD-10 - G89.29) Jan, Other Above note writ ten by Polo Andino MA, Osteopathic Resident. Edited and approved by Dr. Zeny Kaiser MD. [facility] Other 05-15-2023 Evaluation note* Encounter Date Diagnosis Assessment Notes Treatment Notes Treatment Clinical Notes December, Spondylosis of lumbosacral region without myelopathy or radiculopathy (ICD-10 - M47.817) Patient is voicing minimal complaints of pain at this time. She attributes this to a recent bilateral lumbar facet radiofrequency ablation under fluoroscopic guidance. We will continue to monitor her symptoms in this region. Anatomy of spine discussed in detail with patient in regard to patients condition. Overall, patient believes their pain is reasonably well controlled, and she is in agreement with our treatment plan. December, Osteoarthritis of spine with radiculopathy, lumbar region (ICD-10 - M47.26) We discussed treatment options for the patient's persistent lumbar pain, radiating into her bilateral lower extremities. Patient has exhausted multiple previous treatment options. MRI results show evidence of degenerative disc disease at L5-S1. Given her increasing bilateral lower extremity pain, as well as exam findings, patient is a candidate for a lumbar epidural steroid injection which we will proceed with. Risks and benefits of procedure explained to patient; patient verbalizes understanding. Anatomy of spine discussed in detail with patient in regard to patients condition. December, Chronic pain (ICD-10 - G89.29) December, Other Above note writ ten by Andreea Colon LPN, Osteopathic Resident. Edited and approved by Dr. Zeny Kaiser MD. [place] [facility] Other 02-14-2023 Evaluation note* Encounter Date Diagnosis Assessment Notes Treatment Notes Treatment Clinical Notes Sep, Muscle pain (ICD-10 - M79.10) We discussed treatment options for the patient's persistent cervical and lumbar muscle pain. Patient shows notable muscle tenderness upon exam. Given location of pain and exam findings, patient cervical, lumbar paraspinal trigger point injections, which we will proceed with today in the office. Risks and benefits of procedure explained to patient; patient verbalizes understanding. Patient tolerated this well. Anatomy of spine discussed in detail with patient in regard to patients condition. Sep, Pain in right shoulder (ICD-10 - M25.511) We discussed treatment options for the patient's right shoulder pain. We will obtain updated imaging today and call the patient with any urgent findings. We will start treatment conservatively with physical therapy. Anatomy discussed in detail with patient in regard to patients condition. Sep, Spondylosis of lumbosacral region without myelopathy or radiculopathy (ICD-10 - M47.817) Patient is voicing minimal complaints of pain at this time. She attributes this to a recent bilateral lumbar facet radiofrequency ablation under fluoroscopic guidance. We will continue to monitor her symptoms in this region. Anatomy of spine discussed in detail with patient in regard to patients condition. Overall, patient believes their pain is reasonably well controlled, and she is in agreement with our treatment plan. Sep, Chronic pain (ICD-10 - G89.29) Sep, Other Above note writ ten by Andreea Colon LPN, Osteopathic Resident. Edited and approved by Dr. Zeny Kaiser MD. [facility] Other 01-10-2023 Evaluation note* Encounter Date Diagnosis Assessment Notes Treatment Notes Treatment Clinical Notes Aug, Spondylosis of lumbosacral region without myelopathy or radiculopathy (ICD-10 - M47.817) I again reviewed the MRI of the lumbar spine which shows retrolisthesis at L5-S1 with foraminal stenosis and central disc herniation. She recently had an ablation completed by Dr. Kaiser and it improved her symptoms. Advised to continue with pain management with Dr. Kaiser and will follow up as needed, if symptoms worsen with persistant radiculopathy Aug, Spondylolisthesis, lumbosacral region (ICD-10 - M43.17) [facility] Other 01-03-2023 Evaluation note* Encounter Date Diagnosis Assessment Notes Treatment Notes Treatment Clinical Notes Aug, Chronic pain (ICD-10 - G89.29) Aug, Spondylosis of lumbosacral region without myelopathy or radiculopathy (ICD-10 - M47.817) Patient is voicing minimal complaints of pain at this time. She attributes this to a recent bilateral lumbar facet radiofrequency ablation under fluoroscopic guidance. We will continue to monitor her symptoms in this region. Anatomy of spine discussed in detail with patient in regard to patients condition. Overall, patient believes their pain is reasonably well controlled, and she is in agreement with our treatment plan. We will follow up with her in two months, sooner if needed. Aug, Lumbar pain (ICD-10 - M54.50) We discussed treatment options for the patient's lumbar muscle pain. We discussed if symptoms progress we can consider lumbar trigger point injections. We will continue to monitor at this time. We will follow up with the patient in two months, sooner if needed. Aug, Other Above note writ ten by Andreea Colon LPN, Osteopathic Resident. Edited and approved by Dr. Zeny Kaiser MD. [facility] Other 11-14-2022 Evaluation note* Encounter Date Diagnosis Assessment Notes Treatment Notes Treatment Clinical Notes Jun, Chronic pain (ICD-10 - G89.29) Jun, Spondylosis of lumbosacral region without myelopathy or radiculopathy (ICD-10 - M47.817) We discussed treatment options for the patient's persistent low back pain. She shows notable pain consistent with the facet region upon exam which is supported by previous imaging. Based on location of pain and exam findings, patient is a candidate for bilateral lumbar facet radiofrequency ablation under fluoroscopic guidance. Risks and benefits of procedure explained to patient; patient verbalizes understanding. Anatomy of spine discussed in detail with patient in regard to patients condition. Jun, Lumbar pain (ICD-10 - M54.50) Jun, Other Above note writ ten by Andreea Colon LPN, Osteopathic Resident. Edited and approved by Dr. Zeny Kaiser MD. [facility] Other 10-25-2022 Evaluation note* Encounter Date Diagnosis Assessment Notes Treatment Notes Treatment Clinical Notes May, Left lumbar radiculopathy (ICD-10 - M54.16) This is a very complicated patient. I am not certain as to how much neurogenic claudication there is. Again we reviewed the MRI of the lumbar spine which shows retrolisthesis at L5-S1 with foraminal stenosis and central disc herniation. Primarily she has low back pain and sacroiliac pain and takes Valium and Mendon chronically as well as gabapentin 400 mg p.o. twice daily. Her back is feeling better after some injections that she got. I recommend that she continues to get these injections and that she at least taper down her gabapentin to half the amount. She then needs to begin working on tapering down Mendon and Valium. At this point she is not a good operative candidate with this medication mix. I will see her back at the beginning of the year to see how she is doing May, Spondylolisthesis, lumbosacral region (ICD-10 - M43.17) [facility] Other 09-20-2022 Evaluation note* Encounter Date Diagnosis Assessment Notes Treatment Notes Treatment Clinical Notes Apr, Chronic pain (ICD-10 - G89.29) Apr, Spondylosis of lumbosacral region without myelopathy or radiculopathy (ICD-10 - M47.817) We discussed treatment options for the patient's persistent low back pain. She shows noteable pain consistent with the the facet region upon exam which is supported by previous imaging. She has failed multiple previous conservative treatment options. Based on location of pain and exam findings, patient is a candidate for bilateral lumbar facet medial branch blocks under floriscopic guidance. Risks and benefits of procedure explained to patient; patient verbalizes understanding. It was further explained should this provide significant short term relief we will proceed with a repeat block and subsequent radiofrequency ablation. Anatomy of spine discussed in detail with patient in regards to patients condition. Apr, Lumbar pain (ICD-10 - M54.50) Apr, Other Above note writ ten by Andreea Colon LPN, Osteopathic Resident. Edited and approved by Dr. Zeny Kaiser MD. Medical decision making shows a new problem to me with further workup planned or suggested with the potential for extensive treatment options that were considered with the most applicable given this patient's situation as noted above. Treatment options considered include a combination of physical therapy approaches, pharmacologic management, and interventional procedures. Those most applicable to the patient were discussed at this time. Risk of complications and/or morbidity and mortality is high given that acute and chronic pain poses a threat to life and bodily function if undertreated, poorly treated or with failure to maintain adequate treatment and timely followup. Given the serious and fluctuating nature of pain with extensive consideration for whenever pain changes, there always remains the possibility of prolonged functional impairment requiring constant patient reassessment and high-level medical decision making. The amount and complexity of data reviewed is high given that patient labs, radiology reports, and other test were obtained, reviewed and summarized as applicable from the physician portal and/or outside medical records. Pertinent positive and negative findings were considered in medical decision-making. [facility] Other 08-02-2022 Evaluation note* Encounter Date Diagnosis Assessment Notes Treatment Notes Treatment Clinical Notes Mar, Left lumbar radiculopathy (ICD-10 - M54.16) I have independently reviewed the MRI of the lumbar spine which shows what appears to me a foraminal stenosis of the left L5-S1 foramen and a left eccentric disc herniation L5-S1. The patient had a previous right microdiscectomy L5-S1. Her clinical symptoms are consistent with a left L5 radiculopathy. The only way the patient could have an L5 radiculopathy and persistent back pain would be from some form of instability and a foraminal narrowing at L5-S1 on the left. I need to call radiology to see if they would consider amending the report in further delineating the left foramen pathology. The patient needs a 6 view lumbar spine x-ray. She needs an AP and lateral pelvis x-ray. I will see her again and evaluate her for potential surgical intervention. The patient understands and agrees we will see her in 4-6 weeks I ordered physical therapy in the interim. Mar, Other chronic pain (ICD-10 - G89.29) Mar, Lumbago with sciatica, left side (ICD-10 - M54.42) [facility] Other 01-04-2022 NotePROCEDURE: [facility] VCT 64, 5.0 mm slice axial images were acquire with coronal reconstruction through sinuses without contrast. HISTORY: Chronic sinus infections FINDINGS: Normally developed, aerated paranasal sinuses. Minimal (several millimeter) mucosal thickening left sphenoid sinus wall. No significant paranasal sinus fluid, mass or osteomeatal unit compromise. Minimal rightward nasal septal deviation, small to moderate size bony nasal spur. No nasal mass. Normal orbital and intracranial contents. Normal aeration mastoid air cells and tympanic cavities. Normal nasophyarngeal soft tissues. IMPRESSION: 1. Minimal left sphenoid mucosal thickening, no evidence of significant chronic or acute sinusitis. Report reported and signed by Tin Islas on 08/12/2021 1010[id number] History general Narrative - Reported* Type Description Date Medical History asthma Medical History allergic rhinitis Medical History 06/27/13 Capsule endoscopy-rapid transit Medical History 06/07/13 Colonoscopy-tubular jazmin noma Medical History 04/28/13 EGD/Ramsay-hiatal hernia, no acid reflux Surgical History Partial hysterectomy Surgical History blood transfusion Surgical History Back Surgery 2013 Hospital[address] History See above [facility] Other evaluation [facility]No [facility] Other evaljumgqa noteNo assessment information available [facility] Work Phone: Evaluation note* Diagnosis Chronic idiopathic constipation- Primary Unspecified constipation documented in this encounter [facility] for referral (narrative)* Consultation (Routine) - Authorized Specialty Diagnoses / Procedures Referred By Teto t Referred To Contact Gastroenterology Diagnoses Chronic idiopathic constipation Procedures TX OFFICE/OUTPATIENT [facility] 60 MINUTES Emy Palomares NP [address] [facility] [address] [place] [address] Ankur Benavides MD [address] [place] [address] [address] [place] [address] Referral ID Status Reason Start Date Expiration Date Visits Requested Visits Authorized [id number] Authorized Specialty Services Required 09/15/2023 03/13/2024 1 1 [facility] Healthcare Summary Purpose Family History Relationship Condition Age at Onset Recorded Date/T garcia father Cerebrovascular accident (CVA) Unknown Heart disease Unknown Peripheral vascular disease Unknown Advance Directives Advance Directive Response Recorded Date/ Time Advance Directives No January 20 9:27am Advance Directive Response Recorded Date/ Time Advance Directives No January 20 8:27am Reason for Referral Reason Evaluate and Treat B ack and Leg Pain Diagnosis 1 Left lumbar radiculo prema (M54.16) Referral Organization [facility] Ne urosurgery Referring Provider First Name Chapito Referring Provider Last Name Gonsalo Referring Provider Specialty Neurologica l Surgery Referred Organization [facility] Referred Address ,[place], [place],[address] Referred Provider Specialty Physical The rapist Referral Priority Routine Reason DAYANA shoulder pa in, please evaluate Diagnosis 1 Shoulder pain (M25.5 19) Referral Organization [facility] Referring Provider First Name Zeny Referring Provider Last Name Awilda Referring Provider Specialty Pain Medici ne Referred Organization [facility] Referred Provider Maurisio Jones Referred Address [address] [facility] [place],[address] Referred Provider Specialty Orthopedic S urgery Referral Priority Routine General Notes Errol Kaye 06/17 10:10:57 AM > Received referral today, sent P2P Chief Complaint and Reason for Visit Chief Complaint M54.16 Chief Complaint M25.511 M47.22 Chief Complaint M25.511;M25.512 M24.811 Additional Source Comments INFORMATION SOURCE (unrecogn ized section and content) DATE CREATED AUTHOR 08/13/2021 [facility] dical Specialist DATE CREATED AUTHOR AUTHOR'S ORGANIZ ATION 11/20/2022 [facility] DATE CREATED AUTHOR AUTHOR'S ORGANIZ ATION 08/20/2023 [facility] DATE CREATED AUTHOR AUTHOR'S ORGANIZ ATION 09/16/2023 [facility] dical Specialists EPIC REASON FOR VISIT (unrecogniz ed section and content) Right Shoulder MRI Results Reason Comments Constipation Care Teams (unrecognized sec tion and content) Team Status: Inactive Member Role Status Dates Eduardo Man II MD Primary Care Provider Active Chapito Brush MD Attending Provider Active Team Status: Active Member Role Status Dates Eduardo Man II MD Primary Care Provider Active Team Status: Inactive Member Role Status Dates Eduardo Man II MD Primary Care Provider Active Zeny Kaiser MD Attending Provider Active Team Status: Inactive Member Role Status Dates Eduardo Man II MD Primary Care Provider Active Maurisio Jones DO Attending Provider Active Chief Green Officer Relationship Specialty Start Date End Date Eduardo Man MD [address] [facility] [address] [place] [address] PCP - General Internal Medicine 01/04/23 Eduardo Man MD [address] [facility] [address] [place] [address] PCP - [employer] 04/09/23 Chief Green Officer Relationship Specialty Start Date End Date Eduardo Man MD [address] [facility] [address] [place] [address] PCP - General Internal Medicine 01/04/23 Eduardo Man MD [address] [facility] [address] [place] [address] PCP - [employer] 04/09/23 Goals (unrecognized section and content) Goals may be documented in a n alternate section FOR RECORDS PERTAINING TO PATIENTS WHO ARE OR HAVE BEEN ENROLLED IN A CHEMICAL DEPENDENCY/SUBSTANCEABUSE PROGRAM, SOME INFORMATION MAY BE OMITTED. This clinical summary was aggregated from multiple sources. Caution should be exercised in using it in the provision of clinical care. This summary normalizes information from multiple sources, and as a consequence, information in this document may materially change the coding, format and clinical context of patient data. In addition, data may be omitted in some cases. CLINICAL DECISIONS SHOULD BE BASED ON THE PRIMARY CLINICAL RECORDS. [facility]. provides no warranty or guarantee of the accuracy or completeness of information in this document.
== END 2023-10-26 09:35 | disposition home or self-care (01) ==
LOC: MRI 09:34
PROVIDERS: PCP Internal Medicine; Visit Provider Physician Assistant Medical
DX: M47.816 Spondylosis without myelopathy or radiculopathy, lumbar region (principal); M51.36 Other intervertebral disc degeneration, lumbar region; M51.26 Other intervertebral disc displacement, lumbar region
CPT/HCPCS: 72148

== ENCOUNTER 2023-11-25 12:53 | Outpatient (OUT) | payer BC, SELFPAY ==
[2023-11-25 14:05] LABS: Thyroid Stimulating Hormone 0.837 uIU/mL (0.358-3.740)
[2023-11-25 14:15] LABS: C Reactive Protein <0.50 mg/dL (<=0.50)
[2023-12-03 00:06] LABS: Calprotectin, Fecal 100 ug/g (0-120)
== END 2023-11-25 12:54 | disposition home or self-care (01) ==
LOC: LAB 12:54
PROVIDERS: PCP Internal Medicine
DX: R10.9 Unspecified abdominal pain (principal); K59.00 Constipation, unspecified
CPT/HCPCS: 36415; 83993; 84443; 86140

== ENCOUNTER 2024-01-04 21:41 | Outpatient (REF) | payer BC, SELFPAY ==
--- OUTSIDE RECORDS SUMMARY | 2024-01-04 21:51 | XMS_ITS | CCD ---
Author Organization [facility] Care Team Providers Care Die Engraving Supervisor Name Role Phone Chapito Brush Unavailable OTILIA Man Primary Care Provider MD Chapito Brush Attending Provider Zeny Kaiser Unavailable Donovan, OTILIA Clark Primary Care Provider MD Zeny Kaiser Attending Provider ANN, DR PAULINE Gu Admitting Unavailable HEMMER, DR PAULINE Gu Attending Unavailable JAZMINE LIAO Consulting Unavailable DONOVAN, DR CLARK Primary Care Unavailable HEMMER, DR PAULINE Gu Consulting Unavailable HEMMER, DR PAULINE Gu Attending Unavailable HEMMER, DR PAULINE Gu Admitting Unavailable HEMMER, DR PAULINE Gu Consulting Unavailable DONOVAN, DR CLARK Primary Care Unavailable HEMMER, DR PAULINE Gu Attending Unavailable HEMMER, DR PAULINE Gu Admitting Unavailable JUNO CORTES Consulting Unavailable DONOVAN, DR CLARK Primary Care Unavailable HEMMER, DR PAULINE Gu Consulting Unavailable AMBER Graza, DR KING Attending Unavailable TRACI ., MR VALERA Consulting Unavailable DONOVAN, DR CLARK Primary Care Unavailable AMBER Garza, DR KING Admitting Unavailable SERGIO RAE Consulting Unavailable SERGIO RAE Attending Unavailable DONOVAN, DR CLARK Primary Care Unavailable SERGIO RAE Admitting Unavailable JAZMINE HARVEY Consulting Unavailable BILL .BHASKAR Consulting Unavailable BILL ., BHASKAR Attending Unavailable BILL ., BHASKAR Admitting Unavailable DONOVAN, DR CLARK Primary Care Unavailable MISC, DR ROBERTO Referring Unavailable ALICIA WAGONER Attending Unavailable ALICIA WAGONER Admitting Unavailable DONOVAN, DR CLARK Primary Care Unavailable ALICIA WAGONER Admitting Unavailable ALICIA WAGONER Attending Unavailable LEIGHA, DR SKYLER Hurley Consulting Unavailable DONOVAN, DR CLARK Primary Care Unavailable ALICIA WAGONER Consulting Unavailable DONOVAN, DR CLARK Consulting Unavailable DONOVAN, DR CLARK Attending Unavailable DONOVAN, DR CLARK Admitting Unavailable DONOVAN, DR CLARK Primary Care Unavailable EDITH ., DR BAPTISTE Consulting Unavailable LEIGHA, DR SKYLER Hurley Consulting Unavailable Man, II Eduardo Primary Care Provider MD Zeny Kaiser Attending Provider Donovan, II Eduardo Primary Care Provider [phone] MD Zeny Kaiser Attending Provider Maurisio Jones Unavailable Donovan, OTILIA Clark Primary Care Provider [phone] DO Maurisio Jones Attending Provider Eduardo Man MD Primary Care Provider Eduardo Man MD Unavailable MILAGRO PALOMARES Attending Unavailable MILAGRO PALOMARES Referring Unavailable JAZMINE AVENDAÑO Attending Unavailable ZENY KAISER Referring Unavailable MILAGRO PALOMARES Attending Unavailable EDUARDO MAN Attending Unavailable JACKLYN BONE Attending Unavailable Donovan, II Eduardo Primary Care Provider [phone] MD Martita Pandey Attending Provider Zeny Kaiser Admitting Unavailable Zeny Kaiser Attending Unavailable Eduardo Man Primary Care Unavailable Maurisio Jones Attending Unavailable Eduardo Man [facility] Unavailable Maurisio Jones Admitting Unavailable Maurisio Jones Attending Unavailable Eduardo Man Primary Care Unavailable Maurisio Jones Admitting Unavailable Asanabil, Imnabil Admitting Unavailable Asanabil, Martita Attending Unavailable Eduardo Man Primary Care Unavailable Zeny Kaiser Admitting Unavailable Zeny Kaiser Attending Unavailable Eduardo Man Primary Care Unavailable Allergies Allergy Classification Reported Allergen(s) Allergy Type Date of Onset Reaction(s) Facility (1 source) egg extract Drug Allergy 09-17-2014 [facility] Repository (1 source) Papaveretum Drug Allergy 09-17-2014 [facility] (1 source) venlafaxine Drug Allergy 09-17-2014 [facility] (1 source) Wheat preparation Drug Allergy 09-17-2014 [facility] (3 sources) venlafaxine Drug Allergy 08-15-2021 [facility] Medications Current Medications Medication Drug Class(es) Dates Sig (Normalized) Sig (Original) acetaminophen 325 mg / HYDROcodone bitartrate 5 mg oral tablet (20 sources) Opioid Agonist Start: 08-30-2023 take 1 tablet by mouth every six hours HYDROcodone-acetamin ophen (Lupton) 5-325 MG tablet Indications: Degeneration of lumbar or lumbosacral intervertebral disc , Lumbar radiculopathy Take 1 tablet by mouth every 6 (six) hours 120 tablet 0 08/30/2023 Active Start: 01-20-2019 End: 11-25-2023 take 1 tablet by mouth three times daily Hydrocodone-Acetaminophen Active 1 TAB P O Three times daily November 25, 2023 12:00am HYDROcodone-Acet aminophen Active Advair Diskus 250-50 MCG/DOSE (20 sources) take 1 puff(s) by inhalation twice daily [id number] 200 actuat albuterol 0.09 mg/actuat metered dose inhaler (17 sources) beta2-Adrenergic Agonist Start: take 2 puff(s) by inhalation every four hours for wheezing albuterol HFA 90 mcg/act inhaler Indications: Mild persistent asthmatic bronchitis without complication (CMS/HCC) Inhale 2 puffs every 4 (four) hours if needed for wheezing or shortness of breath. 18 g 5 01/28/2023 Active Start: 01-20-2019 End: 11-25-2023 take 1 puff(s) by inhalation every four to six hours Albuterol Sulfate (Proair Hfa) 90 mcg/actuation Hfa Aerosol Inhaler Discontinued 2 PUFF INHALATION EVERY 4-6 HOURS January 20, 2019 12:00am November 25, 2023 9:51am take 2 puff(s) by in halation every four hours as needed aspirin 81 mg chewable tablet (1 source) Platelet Aggregation Inhibitor, Nonsteroidal Anti-inflammatory Drug Start: 12-03-2023 take 1 tablet by mouth once daily Aspirin (Aspirin Childrens) 81 mg tablet,chewable Active 81 MG PO Daily December 03, 2023 12:00am b complex-folic acid tablet (3 sources) take 1 tablet by mouth in the morning b complex-folic acid tablet Take 1 tablet by mouth in the morning. 0 Active Bee Pollen 500 MG chewable tablet (3 [...] 0 Active cetirizine hydrochloride 10 mg oral tablet (20 sources) Histamine-1 Receptor Antagonist Start: 12-03-2023 take 1 tablet by mouth once daily at bedtime Start: 01-20-2019 End: 11-25-2023 take 1 capsule by mouth once daily Cetirizine (Zyrtec) 10 mg Capsule Discontinued 10 MG PO Daily January 20, 2019 12:00am November 25, 2023 9:51am take 1 tablet by keiko th every twenty-four hours cholecalciferol 0.05 mg oral capsule (3 sources) Vitamin D cholecalciferol (Vitamin D-3) 50 MCG (1999 UT) capsule 1 capsule 1 (one) time each day at the same time. 0 Active cyclobenzaprine hydrochloride 10 mg oral tablet (20 sources) Muscle Relaxant Start: take 10 mg by mouth every eight hours Cyclobenzaprine Active 10 MG PO Every 8 hours December 03, 2023 12:00am take 1 tablet by keiko th three times daily as needed cyclobenzaprine (Flexeril) [...] tablet 0 08/30/2023 Active Start: 01-20-2019 take 2.5 mg by mouth three times daily in the morning, then take 5 mg by mouth at bedtime Diazepam Active 2.5 MG PO Three times daily January 20, 2019 12:00am takes 2.5mg in morning and afternoon and 5mg at HS Start: 01-20-2019 take 5 mg by mouth o nce daily at bedtime Diazepam Active 2.5 MG PO Daily January 20, 2019 12:00am 5 mg hs diazePAM Active docusate sodium [...] oral capsule (20 sources) Anti-epileptic Agent Start: take 100 mg by mouth twice daily Gabapentin Active 100 MG PO Twice daily November 25, 2023 12:00am Start: 11-25-2023 take 3 capsules by m outh twice daily Gabapentin Active 100 MG PO Daily November 25, 2023 12:00am FreeTextSig: TAKE 3 CAPSULES BY MOUTH TWICE A DAY; Note: Source Status: Taking; Refills: 1; Qty: 180 Capsule; Provider: Awilda Lacey Start: 05-19-2023 take 3 capsules by m outh in the morning gabapentin (Neurontin) 100 MG capsule Indications: Degeneration of lumbar or lumbosacral intervertebral disc , Lumbar radiculopathy Take 3 capsules (300 mg) by mouth in the morning and 3 capsules (300 mg) before bedtime. 200 capsule 3 05/19/2023 Active take 1 capsule by [facility] every twenty-four hours Gabapentin 400 MG 1 capsule Orally Once a day Active linaclotide 0.29 mg oral capsule (5 sources) Guanylate Cyclase-C Agonist Start: 11-25-2023 take 1 capsule by mouth once daily Linaclotide (Linzess) 290 mcg capsule Active 290 MCG PO Daily November 25, 2023 12:00am Start: 05-24-2023 take 1 capsule by mo uth once daily linaCLOtide (Linzess) 290 MCG capsule Indications: Chronic idiopathic constipation Take 1 capsule (290 mcg) by mouth 1 (one) time each day at the same time. 90 capsule 3 05/24/2023 Active meclizine hydrochloride 25 m g oral tablet (11 sources) Antiemetic Start: 04-26-2024 Meclizine Acti ve 25 MG PO 2-3 TIMES PER DAY December 03, 2023 12:00am Start: 02-26-2023 take 1 tablet by keiko th every six hours for dizziness meclizine (Antivert) 25 MG tablet Indications: Meniere's disease of both ears Take 1 tablet (25 mg) by mouth every 6 (six) hours if needed for dizziness. 120 tablet 2 02/26/2023 Active Start: 01-20-2019 End: 11-25-2023 take 25 mg by mouth three times daily Meclizine Discontinued 25 MG PO Three times daily January 20, 2019 12:00am November 25, 2023 9:51am montelukast 10 mg oral tablet (4 sources) Leukotriene Receptor Antagonist Start: 12-03-2023 take 10 mg by mouth once daily in the morning Montelukast Active 10 MG PO Every morning December 03, 2023 12:00am montelukast (Sin gulair) 10 MG tablet 1 (one) time each day at the same time. 0 Active Multiple Vitamin (multivitamin) tablet (3 sources) take 1 tablet by mouth in the morning Multiple Vitamin (multivitamin) tablet Take 1 tablet by mouth in the morning. 0 Active Multivitamin (Daily Multi-Vitamin) tablet (1 source) Start: 12-03-19 take 1 tablet by mouth once daily in the morning Multivitamin (Daily Multi-Vitamin) tablet Active 1 TAB PO Every morning December 03, 2023 12:00am omeprazole 40 mg delayed release oral capsule (20 sources) Proton Pump Inhibitor Start: 12-03-19 take 40 mg by mouth once daily in the morning Omeprazole Active 40 MG PO Every morning December 03, 2023 12:00am Start: 02-15-2023 take 1 capsule by mo uth once daily omeprazole (PriLOSEC) [address] capsule Indications: Gastro-esophageal reflux disease without esophagitis TAKE 1 CAPSULE BY MOUTH EVERY DAY 90 capsule 3 02/15/2023 Active Omeprazole Not-T aking ondansetron 4 mg disintegrating oral tablet (10 sources) Serotonin-3 Receptor Antagonist Start: 05-24-2023 take 1 tablet by mouth every six hours for nausea ondansetron ODT (Zofran-ODT) 4 MG disintegrating tablet Indications: Chronic idiopathic constipation Take 1 tablet (4 mg) by mouth every 6 (six) hours if needed for nausea or vomiting. 20 tablet 5 05/24/2023 Active Start: 01-20-2019 End: 11-25-2023 Ondansetron Discontinued 4 M G TRANSLINGU Q8H January 20, 2019 12:00am November 25, 2023 9:51am OXcarbazepine 150 mg oral tablet (3 sources) Anti-epileptic Agent OXcarbazepi ne (Trileptal) 150 MG tablet TAKE 1 TABLET BY MOUTH TWICE A DAY FOR 30 DAYS for 30 0 Active ProAir HFA 108 (90 Base) MCG/ACT [...] Drug Class(es) Dates Sig (Normalized) Sig (Original) baclofen 10 mg oral tablet (7 sources) gamma-Aminobutyric Acid-ergic Agonist Start: 01-20-2019 End: 11-25-2023 take 5 mg by mouth three times daily Baclofen Discontinued 5 MG PO Three times daily January 20, 2019 12:00am November 25, 2023 9:51am plecanatide 3 mg oral tablet (10 sources) Start: 01-20-2019 End: 03-10-2024 take 3 mg by mouth once daily Plecanatide Discontinued 3 MG PO Daily January 20, 2019 12:00am November 25, 2023 9:51am triamcinolone acetonide 40 mg/ml injectable suspension (20 sources) Corticosteroid Start: 09-22-2022 Kenalog-40 Jun, 40 mg Problems Active Problems Problem Classification Problem Date Documented Da te Episodic/Chronic Abdominal pain (20 sources) Abdominal pain; Translations: [Unspecified abdominal pain] 11-25-2023 Episodic Anxiety disorders (3 sources) Anxiety about [...] idiopathic constipation] Onset: 3 04-01-2023 Chronic Other gastrointestinal disorders (20 sources) Constipation; Translations: [Constipation, unspecified] Onset: 9 Resolved: 3 04-01-2023 Episodic Other gastrointestinal disorders (2 sources) Constipation, unspecified; Translations: [Constipation, unspecified] 11-25-2023 Episodic Other gastrointestinal disorders (1 source) Other constipation; Translations: [Other constipation] Onset: 4 Episodic Other inflammatory condition of skin (3 sources) [...] sources) Pain in unspecified shoulder Episodic Other nutritional; endocrine; and metabolic disorders [...] (6 sources) Bartonellosis; 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, unspecified] Onset: 015 Resolve d: 023 01-07-2023 Episodic Diseases of mouth; excluding dental (3 sources) Mass of parotid gland; Translations: [Other diseases of salivary glands] Onset: 017 01-07-2023 Episodic E Codes: Fall (1 source) Unspecified fall, initial encounter; Translations: [UNSPECIFIED FALL INITIAL ENCOUNTER] Onset: Episodic Genitourinary symptoms and ill-defined conditions (3 sources) Delay when starting to pass urine; Translations: [Hesitancy of micturition] Onset: 01-07-2023 Episodic Nonspecific chest pain (4 sources) Other chest pain; Translations: [OTHER CHEST PAIN] Onset: Episodic Other aftercare (1 source) Other intermission coordinator (current) drug therapy; Translations: [OTH PROCEDURES ANALYST CURRENT DRUG THERAPY] Onset: Episodic Other and unspecified benign neoplasm (20 sources) Tubular adenoma ; Translations: [Benign neoplasm, unspecified site] Onset: 01-07-2023 Episodic Other and unspecified benign [...] disease (3 sources) Fibromyalgia; Translations: [Fibromyalgia] Onset: 017 01-07-2023 Episodic Other connective tissue disease (3 [...] side; Translations: [Sensorineural hearing loss, unilateral] Onset: 017 Resolve d: 05-24-2023 Chronic Other ear and sense organ disorders (3 sources) Bilateral tinnitus; Translations: [Tinnitus, bilateral] Onset: 01-07-2023 Episodic Other endocrine disorders (3 sources) Disorder of adrenal gland; Translations: [Disorder of adrenal gland, unspecified] Onset: Resolve d: 05-24-2023 Chronic Other female genital disorders (3 sources) Mass of uterine adnexa; Translations: [Other specified conditions associated with female genital organs and menstrual cycle] Onset: Resolve d: 05-24-2023 Episodic Other gastrointestinal disorders (3 sources) Drug-induced [...] [PAIN IN RIGHT HIP] Onset: Episodic Other non-traumatic joint disorders (1 source) Pain in left shoulder; Translations: [Pain in left shoulder] Onset: Episodic Other nutritional; endocrine; and metabolic disorders (3 sources) Underweight; Translations: [Underweight] Onset: 016 Resolve d: 05-24-2023 Episodic Other screening for [...] Test Name Value Interpretation Reference Range Facility [facility] 12-17-2023 L Specimen: [id number] Received: 12/17/23 Status: TROY Req Num: [id number] Spec Type: Surgical Subm Dr: Martita Pandey MD Tissues: A Colon Biopsy (ASCENDING COLON POLYP) Procedures: HE/2, Gross/Micro L4 Age/ Patient Sex Location Account Attending Physician Dayanara,Cata Leo 48/F [id number] Martita Pandey MD SPEC NUM: [id number] RECD: 12/17/23 STATUS: TROY [place] NUM: [id number] ZACH: 12/17/23 [facility] DR: Martita Pandey MD ENTERED: 12/17/23 [facility] DR: SPEC TYPE: Surgical DEPT: S ORDERED: HE/2, Gross/Micro L4 ORDERED: HE/2, Gross/Micro L4 Pathological Diagnosis Polyps, ascending colon, biopsy: Tubular and serrated adenomas. - Negative For High Grade Dysplasia And Malignancy. Gross Description Received in formalin, labeled with the patient's name, date of and ascending polyps are multiple martines polypoid tissue fragments admixed with mucus and possible vegetable material measuring in aggregate 2.2 x 1.4 x 0.3 cm, entirely submitted in A1. Clinical history: Constipation, abdominal pain CPT Codes 53237 -------- -------- Specimen: [id number] Received: 12/17/23 Status: TROY [place] Num: [id number] Spec Type: Surgical Subm Dr: Martita Pandey MD Tissues: A Colon Biopsy (ASCENDING COLON POLYP) Procedures: HE/2, Gross/Micro L4 -------- Patient: Cata Nichole [id number] (Continued) -------- Signed (signature on file) Isai Sampson MD 12/20/23 1414 Normal [facility] MR shoulder RT wo conon 08-09 MR shoulder RT wo con [facility] [place] [address] MRI Report Signed Patient: Cata Nichole MR#: [id number] : 1975 Acct:[id number] Age/Sex: 48 / F ADM Date: 08/19/23 Loc: [facility] Room: Type: [facility] Attending Dr: Maurisio Jones DO Copies to: [...] SHOULDER. Impression dictated by: Tin Martinez Jr., D.OKayla08/19/2023 2:20 PM Dictation Location: [place] [address] Transcribed By: [facility] 08/19/23 1420 Dictated By: Tin Martinez Jr, DO 08/19/23 1415 Signed By: 08/19/23 1420 Normal [facility] CT ABDOMEN PELVIS W AND WO I [...] Isovue-300, 100 mL.. Comparison: CT abdomen pelvis, [facility], November 25, 2018.. Findings: Lungs: Lung bases [...] 2Von 06-10 XR shoulder BI min 2V [facility] [place] [address] [place] [address] XRay Report Signed Patient: Cata Nichole MR#: [id number] : 1975 Acct:[id number] Age/Sex: 48 / F ADM Date: 06/29/23 Loc: [facility] Room: Type: [facility] Attending Dr: Maurisio Jones DO Copies to: [...] Donald Jones M.D.06/29/2023 12:16 PM Dictation Location: RADIO-PC-12 Transcribed By: [facility] 06/29/23 1216 Dictated By: Donald Jones II, MD 06/29/23 121 Signed By: 06/29/23 1216 Normal [facility] XR shoulder BI min 2V [facility] [employer] Other XR shoulder BI min 2V [facility] [employer] Other XR shoulder BI min 2V [address] [place] [address] [employer] Other XR shoulder BI [place] 2[place] [address] [employer] Other XR shoulder BI min 2V XRay Report [employer] Other XR shoulder BI min 2V Signed [employer] Other XR shoulder BI min 2V Patient: Cata Nichole MR#: [id number] [employer] Other XR shoulder BI min 2V 2779 [employer] Other XR shoulder BI min 2V : 1975 Acct:[id number] [employer] Other XR shoulder BI min 2V Age/Sex: 48 / F ADM Date: 06/29/23 [employer] Other XR shoulder BI min 2V Loc: [facility] Room: Type: [facility] [employer] Other XR shoulder BI min 2V Attending Dr: Maurisio Jones DO [employer] Other XR shoulder BI min 2V Copies to: Maurisio Jones DO [employer] Other XR shoulder BI min 2V Ordering Provider: Maurisio Jones DO [employer] Other XR shoulder BI min 2V Date of Service: 06/29/23 [employer] Other XR shoulder BI min 2V XR/XR shoulder BI min 2V: Pain in right shoulder;Pain in left shoulder [employer] Other XR shoulder BI min 2V XR shoulder BI min 2V 06/29/2023 9:17 AM [employer] Other XR shoulder BI min 2V SIGNS AND SYMPTOMS: Bilateral shoulder pain [employer] Other XR shoulder BI min 2V PROTOCOL: Frontal, Grashey, scapular Y, and axillary views of the bilateral shoulders [employer] Other XR shoulder BI min 2V COMPARISON: None [employer] Other XR shoulder BI min 2V FINDINGS: [employer] Other XR shoulder BI min 2V The acromioclavicular joint and glenohumeral joint are preserved bilaterally. There is no fracture [employer] Other XR shoulder BI min 2V or dislocation. The visualized right and left hemithorax are grossly intact. [employer] Other XR shoulder BI min 2V XR/XR shoulder BI min 2V [employer] Other XR shoulder BI min 2V IMPRESSION: [employer] Other XR shoulder BI min 2V No acute bony injury or significant degenerative change. [employer] Other XR shoulder BI min 2V Impression dictated by: Donald Jones M.D.06/29/2023 12:16 PM [employer] Other XR shoulder BI min 2V Dictation Location: [place] [address] [employer] Other XR shoulder BI min 2V Transcribed By: COURTNEY 06/29/23 [facility] [employer] Other XR shoulder BI min 2V Dictated By: Donald Jones II, MD 06/29/23 [facility] [employer] Other XR shoulder BI min 2V Signed By: [employer] Other XR shoulder BI min 2V 06/29/23 1216 [employer] Other XR pre/post mri xrayon 04-23 XR pre/post mri xray [facility] [place] [address] [place] [address] MRI Report Signed Patient: Cata Nichole MR#: [id number] : 1975 Acct:[id number] Age/Sex: 47 / F ADM Date: 04/23/23 Loc: MR Room: Type: [facility] Attending Dr: Zeny Kaiser MD Copies to: Zeny Kaiser MD Ordering Provider: Zeny Kaiser MD Date of Service: 04/23/23 MR/MR cervical spine wo con: further evaluation;Other spondylosis with radiculopathy, cer ([id number]) XR/XR pre/post mri xray: OBLIQUE ONLY MR [...] Donald Jones M.D.04/23/2023 3:50 PM Dictation Location: [place] [address] Transcribed By: [facility] 04/23/23 1550 Dictated By: Donald Jones II, MD 04/23/23 1549 Signed By: 04/23/23 2410 Normal [facility] XR cerv spine AP/LAT/FLX/EXT on 01-28-2023 XR cerv spine AP/LAT/FLX/EXT [facility] [employer] Other XR cerv spine AP/LAT/FLX/EXT [facility] [employer] Other XR cerv spine AP/LAT/FLX/EXT [address] [place] [address] [employer] Other XR cerv spine AP/LAT/FLX/[place] [address] [employer] Other XR cerv spine AP/LAT/FLX/EXT XRay Report [employer] Other XR cerv spine AP/LAT/FLX/EXT Signed [employer] Other XR cerv spine AP/LAT/FLX/EXT Patient: Cata Nichole MR#: [id number] [employer] Other XR cerv spine AP/LAT/FLX/EXT 2779 [employer] Other XR cerv spine AP/LAT/FLX/EXT : 1975 Acct:[id number] [employer] Other XR cerv spine AP/LAT/FLX/EXT Age/Sex: 47 / F ADM Date: 01/28/23 [employer] Other XR cerv spine AP/LAT/FLX/EXT Loc: [facility] Room: Type: [facility] [employer] Other XR cerv spine AP/LAT/FLX/EXT Attending Dr: Zeny Kaiser MD [employer] Other XR cerv spine AP/LAT/FLX/EXT Copies to: Zeny Kaiser MD [employer] Other XR cerv spine AP/LAT/FLX/EXT Ordering Provider: Zeny Kaiser MD [employer] Other XR cerv spine AP/LAT/FLX/EXT Date of Service: 01/28/23 [employer] Other XR cerv spine AP/LAT/FLX/EXT XR/XR cerv spine AP/LAT/FLX/EXT: PAIN [employer] Other XR cerv spine AP/LAT/FLX/EXT CERVICAL SPINE WITH FLEXION-EXTENSION VIEWS - 4 views [employer] Other XR cerv spine AP/LAT/FLX/EXT COMPARISON: None [employer] Other XR cerv spine AP/LAT/FLX/EXT CLINICAL DATA: Neck pain radiating to the right eye and down the left hand. No injury. [employer] Other XR cerv spine AP/LAT/FLX/EXT AP as well as lateral views in neutral, flexion and extension were obtained. There are no acute [employer] Other XR cerv spine AP/LAT/FLX/EXT fractures. No displacement or instability is seen. There is mild disc space narrowing at C6-7 [employer] Other XR cerv spine AP/LAT/FLX/EXT along with endplate spurring. There is additional minor plate spurring and facet sclerosis. No [employer] Other XR cerv spine AP/LAT/FLX/EXT prevertebral soft tissue swelling is identified. [employer] Other XR cerv spine AP/LAT/FLX/EXT XR/XR cerv spine AP/LAT/FLX/EXT [employer] Other XR cerv spine AP/LAT/FLX/EXT IMPRESSION: [employer] Other XR cerv spine AP/LAT/FLX/EXT MILD DEGENERATIVE CHANGE , PRIMARILY AT THE C6-7 LEVEL. [employer] Other XR cerv spine AP/LAT/FLX/EXT Impression dictated by: Pauline Fernandes M.D.01/28/2023 10:52 AM [employer] Other XR cerv spine AP/LAT/FLX/EXT Dictation Location: [place] [address] [employer] Other XR cerv spine AP/LAT/FLX/EXT Transcribed By: COURTNEY 01/28/23 1052 [employer] Other XR cerv spine AP/LAT/FLX/EXT Dictated By: Pauline Fernandes MD 01/28/23 1049 [employer] Other XR cerv spine AP/LAT/FLX/EXT Signed By: [employer] Other XR cerv spine AP/LAT/FLX/EXT 01/28/23 1050 [employer] Other XR cerv spine AP/LAT/FLX/EXT [facility] [place] [address] [place] [address] XRay Report Signed Patient: Cata Nichole MR#: [id number] : 1975 Acct:[id number] Age/Sex: 47 / F ADM Date: 01/28/23 Loc: [facility] [place] Room: Type: [facility] Attending Dr: Zeny Kaiser MD Copies to: [...] Pauline Fernandes M.D.01/28/2023 10:52 AM Dictation Location: [facility]10 Transcribed By: [facility] 01/28/23 1052 Dictated By: Pauline Fernandes MD 01/28/23 1049 Signed By: 01/28/23 1052 Normal [facility] XR CHEST 2 Von 11-19-2022 XR CHEST 2 V EXAM: Chest x-ray HISTORY: . Cough . COMPARISON: 12/12/2021 TECHNIQUE: Frontal and lateral chest FINDINGS: Heart and vascularity are unremarkable. Lungs are expanded and free of focal infiltrates. No acute bony abnormality is appreciated. IMPRESSION: No acute heart or lung disease identified. Electronically authenticated by: JAZMINE LIAO Date: 2022-11-19 17:19 Normal [facility] XR shoulder RT min 2V*on XR shoulder RT min 2V* [facility] [employer] Other XR shoulder RT min 2V* [facility] [employer] Other XR shoulder RT min 2V* [address] [place] [address] [employer] Other XR shoulder RT min 2V* JAIDEN Castaneda [id number] [employer] Other XR shoulder RT min 2V* XRay Report [employer] Other XR shoulder RT min 2V* Signed [employer] Other XR shoulder RT min 2V* Patient: Cata Nichole MR#: [id number] [employer] Other XR shoulder RT min 2V* 2779 [employer] Other XR shoulder RT min 2V* : 1975 Acct:[id number] [employer] Other XR shoulder RT min 2V* Age/Sex: 47 / F ADM Date: 09/22/22 [employer] Other XR shoulder RT min 2V* Loc: [facility] [place] Room: Type: [facility] [employer] Other XR shoulder RT min 2V* Attending Dr: Zeny Kaiser MD [employer] Other XR shoulder RT min 2V* Copies to: Zeny Kaiser MD [employer] Other XR shoulder RT min 2V* Ordering Provider: Zeny Kaiser MD [employer] Other XR shoulder RT min 2V* Date of Service: 09/22/22 [employer] Other XR shoulder RT min 2V* XR/XR shoulder RT min 2V*: Pain in right shoulder [employer] Other XR shoulder RT min 2V* RIGHT SHOULDER - - 4 views [employer] Other XR shoulder RT min 2V* CLINICAL HISTORY: Right anterolateral shoulder pain for one month. [employer] Other XR shoulder RT min 2V* COMPARISON: None [employer] Other XR shoulder RT min 2V* FINDINGS: [employer] Other XR shoulder RT min 2V* Minimal degenerative change of the AC joint without acute bony process. [employer] Other XR shoulder RT min 2V* XR/XR shoulder RT min 2V* [employer] Other XR shoulder RT min 2V* IMPRESSION: [employer] Other XR shoulder RT min 2V* MINIMAL DEGENERATIVE CHANGE INVOLVING THE RIGHT SHOULDER WITHOUT ACUTE BONY PROCESS. [employer] Other XR shoulder RT min 2V* Impression dictated by: Tin Martinez Jr., D.O.09/22/2022 4:40 PM [employer] Other XR shoulder RT min 2V* Dictation Location: [place] [address] [employer] Other XR shoulder RT min 2V* Transcribed By: PWS 09/22/22 [facility] [employer] Other XR shoulder RT min 2V* Dictated By: Tin Martinez Jr, DO 09/22/22 1639 [employer] Other XR shoulder RT min 2V* Signed By: [employer] Other XR shoulder RT min 2V* 09/22/22 [facility] [employer] Other RESPIRATORY PANEL PLUSon Adenovirus Not detected Normal NOT DETECTED [facility] Comment on above: Performed By: #### R SPLUS #### [facility] [address] [place] [address] Dr. Aidan Bolanos Parapertusis Not detected Normal NOT DETECTED The [facility] Comment on above: Performed By: #### R SPLUS #### [facility] [address] [place] [address] Dr. Aidan Bolanos Pertussis Not detected Normal NOT DETECTED [facility] Comment on above: Performed By: #### R SPLUS #### [facility] [address] [place] [address] Dr. Aidan Mccain Chlamydia Pneumoniae Not detected Normal NOT DETECTED [facility] Comment on above: Performed By: #### R SPLUS #### [facility] [address] [place] [address] Dr. Aidan Mccain Coronavirus 229E Not detected Normal NOT DETECTED [facility] Comment on above: Performed By: #### R SPLUS #### [facility] [address] [place] [address] Dr. Aidan Mccain Coronavirus HKU1 Not detected Normal NOT DETECTED [facility] Comment on above: Performed By: #### R SPLUS #### [facility] [address] [place] [address] Dr. Aidan Mccain Coronavirus NL63 Not detected Normal NOT DETECTED [facility] Comment on above: Performed By: #### R SPLUS #### [facility] [address] [place] [address] Dr. Aidan Mccain Coronavirus OC43 Not detected Normal NOT DETECTED [facility] Comment on above: Performed By: #### R SPLUS #### [facility] [address] [place] [address] Dr. Aidan Mccain Influenza A H1 2009 Not detected Normal NOT DETECTED [facility] Comment on above: Performed By: #### R SPLUS #### [facility] [address] [place] [address] Dr. Aidan Mccain Influenza A H3 Not detected Normal NOT DETECTED The [facility] Comment on above: Performed By: #### R SPLUS #### [facility] [address] [place] [address] Dr. Aidan Mccain Influenza B Not detected Normal NOT DETECTED The [facility] Comment on above: Performed By: #### R SPLUS #### [facility] [address] [place] [address] Dr. Aidan Mccain Metapneumovirus Not detected Normal NOT DETECTED The [facility] Comment on above: Performed By: #### R SPLUS #### [facility] [address] [place] [address] Dr. Aidan Mccain Mycoplas. Pneumoniae Not detected Normal NOT DETECTED [facility] Comment on above: Performed By: #### R SPLUS #### [facility] [address] [place] [address] Dr. Aidan Mccain Parainfluenza 1 Not detected Normal NOT DETECTED The [facility] Comment on above: Performed By: #### R SPLUS #### [facility] [address] [place] [address] Dr. Aidan Mccain Parainfluenza 2 Not detected Normal NOT DETECTED The [facility] Comment on above: Performed By: #### R SPLUS #### [facility] [address] [place] [address] Dr. Aidan Mccain Parainfluenza 3 Not detected Normal NOT DETECTED The [facility] Comment on above: Performed By: #### R SPLUS #### [facility] [address] [place] [address] Dr. Aidan Mccain Parainfluenza 4 Not detected Normal NOT DETECTED The [facility] Comment on above: Performed By: #### R SPLUS #### [facility] [address] [place] [address] Dr. Aidan Mccain Rhino/Enterovirus Not detected Normal NOT DETECTED [facility] Comment on above: Performed By: #### R SPLUS #### [facility] [address] [place] [address] Dr. Aidan Mccain RP2 Header 1 RESPIRATORY PANEL: VIRUSES Normal [facility] Comment on above: Performed By: #### R SPLUS #### [facility] [address] [place] [address] Dr. Aidan Mccain RP2 Header 2 RESPIRATORY PANEL: BACTERIA Normal [facility] Comment on above: Performed By: #### R SPLUS #### [facility] [address] [place] [address] Dr. Aidan Mccain RSV Not detected Normal NOT DETECTED [facility] Comment on above: Performed By: #### R SPLUS #### [facility] [address] [place] [address] Dr. Aidan Mccain SARS-CoV-2 (COVID-19) RNA ELEUTERIO+probe Ql (Unsp spec) Not detected Normal NOT DETECTED [facility] Comment on above: Performed By: #### R SPLUS #### [facility] [address] [place] [address] Dr. Aidan Mccain XR LSPINE 2_3 VIEWSon [...] JAZMINE HARVEY Date: 2022-06-27 18:37 Normal [facility] CULTURE URINEon 02-22-2022 CULTURE URINE Culture Observations : HEAVY GROWTH OF MIXED GENITAL DALTON. NO POTENTIAL PATHOGENS SEEN. Normal [facility] Comment on above: Performed By: #### U RCX #### [facility] [address] [place] [address] Dr. Aidan Mccain ER URINE PROFILEon 2 Bilirubin Ql (U) Negative Normal NEGATIVE [facility] Comment on above: Performed By: #### PRASANTH WHEELERRO #### [facility] [address] [place] [address] Dr. Aidan Mccain Clarity (U) CLEAR Normal CLEAR [facility] Comment on above: Performed By: #### Mariaelena CHUNG UMICRO #### [facility] [address] [place] [address] Dr. Aidan Mccain Color (U) LT. YELLOW Normal YELLOW [facility] Comment on above: Performed By: #### PRASANTH WHEELERRO #### [facility] [address] [place] [address] Dr. Aidan MARIE A micrscopic examination will be performed if indicated. Normal [facility] Comment on above: Performed By: #### PRASANTH WHEELERRO #### [facility] [address] [place] [address] Dr. Aidan Mccain Glucose Ql (U) Negative Normal NEGATIVE [facility] Comment on above: Performed By: #### Mariaelena CHUNG UMICRO #### [facility] [address] [place] [address] Dr. Aidan Mccain Hemoglobin Ql (U) Negative Normal NEGATIVE [facility] Comment on above: Performed By: #### Mariaelena CHUNG UMICRO #### [facility] [address] [place] [address] Dr. Aidan Mccain Ketones Ql (U) Negative Normal NEGATIVE [facility] Comment on above: Performed By: #### Mariaelena CHUNG UMICRO #### [facility] [address] [place] [address] Dr. Aidan Mccain LEUKOCYTES SMALL Abnormal NEGATIVE [facility] Comment on above: Performed By: #### Mariaelena CHUNG UMICRO #### [facility] [address] [place] [address] Dr. Aidan Mccain Nitrite Ql (U) Negative Normal NEGATIVE [facility] Comment on above: Performed By: #### Mariaelena CHUNG UMICRO #### [facility] [address] [place] [address] Dr. Aidan Mccain pH (U) 6.0 [pH] Normal 5-9 [facility] Comment on above: Performed By: #### Mariaelena CHUNG UMICRO #### [facility] [address] [place] [address] Dr. Aidan Mccain SPEC GRAVITY 1.020 Normal 1.005-<=1.025 [facility] Comment on above: Performed By: #### Mariaelena CHUNG UMICRO #### [facility] [address] [place] [address] Dr. Aidan Mccain UA PROTEIN Negative Normal NEGATIVE/ TRACE [facility] Comment on above: Performed By: #### Mariaelena CHUNG UMICRO #### [facility] [address] [place] [address] Dr. Aidan Mccain UR MICRO IND INDICATED Normal [facility] Comment on above: Performed By: #### E RUR, UMICRO #### [facility] [address] [place] [address] Dr. Aidan Mccain Urobilinogen Qn (U) 0.2 {Sami'U}/dL Normal 0.2 - 1. 0 [facility] Comment on above: Performed By: #### E SHELDON, UMICRO #### [facility] [address] [place] [address] Dr. Aidan Mccain URINE MICROSCOPIC ONLYon BACTERIA TRACE Abnormal NONE SEEN [facility] Comment on above: Performed By: #### E SHELDON, UMICRO #### [facility] [address] [place] [address] Dr. Aidan Mccain Bacteria identified Cx Nom (U) INDICATED Normal [facility] Comment on above: Performed By: #### Mariaelena CHUNG, UMICRO #### [facility] [address] [place] [address] Dr. Aidan Mccain CAST NONE SEEN Normal NONE SEEN [facility] Comment on above: Performed By: #### Mariaelena CHUNG, UMICRO #### [facility] [address] [place] [address] Dr. Aidan Mccain Crystals LM Nom (Urine sed) NONE SEEN Normal NONE SEEN [facility] Comment on above: Performed By: #### Mariaelena CHUNG, UMICRO #### [facility] [address] [place] [address] Dr. Aidan Mccain Epithelial cells LM Ql (Urine sed) MANY Abnormal NONE SEEN /RARE [facility] Comment on above: Performed By: #### E SHELDON, UMICRO #### [facility] [address] [place] [address] Dr. Aidan Mccain MUCOUS NONE SEEN Normal NONE SEEN [facility] Comment on above: Performed By: #### Mariaelena CHUNG, UMICRO #### [facility] [address] [place] [address] Dr. Aidan Mccain RBC 2-5 Abnormal 0-2 [facility] Comment on above: Performed By: #### Mariaelena CHUNG UMICRO #### [facility] [address] [address] [address] Aidan Mccain WBC 5-10 Abnormal NONE SEEN [facility] Comment on above: Performed By: #### E CARLOS ENRIQUE CHUNG #### [facility] [id number] Aidan Mccain MRI LSPINE WO CONon 01-24-20 22 MRI LSPINE WO CON EXAMINATION: MRI LSPINE [...] contribute to patient's symptoms. Electronically authenticated by: SKYLER COLUNGA Date: 2022-01-23 17:37 Normal [facility] MAMM SCREEN 3D DAYANA CADon 01-20-2022 MG MAMM SCREEN 3D DAYANA CAD Patient: CATA NICHOLE Exam Date: 01/20/2022 : 1975 Gender:F Ordering : DR EDUARDO MAN M.D. Admission #: [id number] Family : DR EMILE BERGMAN . Order #: [id number] CLICK HERE TO VIEW EXAM RADIOLOGY REPORT [...] with lupus cancer at age 70. LOCATION: [facility] BREAST COMPOSITION: Extremely dense, which lowers the [...] PALPABLE LUMP SHOULD BE BIOPSIED. Dictated by: Skyler Colunga M.D. on 01/20/2022 at 14:41 Approved by: Skyler Colunga M.D. on 01/20/2022 at 14:48 Normal [facility] XR CHEST 2 Von 12-12-2021 XR CHEST [...] CORTES Date: 2021-12-12 15:09 Normal [facility] Vital Signs Date Time Vital Sign Value Performing Clinician Facility 12-17-2023 10:55-0400 Diastolic blood pressure 66 mm[Hg] II Eduardo Man Work Phone: [facility] 12-17-2023 10:55-0400 Heart rate 71 /min II Eduardo Man Work Phone: [facility] 12-17-2023 10:55-0400 Respiratory rate 16 /min II Eduardo Man Work Phone: [facility] 12-17-2023 10:55-0400 SaO2% (BldA) [Mass fraction] 100 % II Eduardo Man Work Phone: [facility] 12-17-2023 10:55-0400 Systolic blood pressure 129 mm[Hg] II Eduardo Man Work Phone: [facility] 12-17-2023 08:26-0400 Body height 156.21 cm II Eduardo Man Work Phone: [facility] 12-17-2023 08:26-0400 Body weight 50 kg II Eduardo Man Work Phone: [facility] 11-25-2023 09:47-0400 Body height 157.48 cm [facility] 11-25-2023 09:47-0400 Body mass index (BMI) [Ratio] 18.6 kg/m2 [facility] 11-25-2023 09:47-0400 Body weight 46.26 kg [facility] 11-25-2023 09:47-0400 Diastolic blood pressure 77 mm[Hg] [facility] 11-25-2023 09:47-0400 Heart rate 84 /min [facility] 11-25-2023 09:47-0400 Systolic blood pressure 108 mm[Hg] [facility] 09-15-2023 08:39-0500 Body mass index (BMI) [Ratio] 20.6 kg/m2 Milagro Palomares ASSOCIATE TRAINER Work Phone: [facility] 09-15-2023 08:39-0500 Body weight 49.44 kg Milagro Palomares ASSOCIATE TRAINER Work Phone: [facility] 09-15-2023 08:39-0500 Diastolic blood pressure 82 mm[Hg] Milagro Palomares ASSOCIATE TRAINER Work Phone: [facility] 09-15-2023 08:39-0500 Heart rate 89 /min Milagro Palomares ASSOCIATE TRAINER Work Phone: [facility] 09-15-2023 08:39-0500 SaO2% (BldA) [Mass fraction] 98 % Milagro Palomares ASSOCIATE TRAINER Work Phone: [facility] 09-15-2023 08:39-0500 Systolic blood pressure 118 mm[Hg] Milagro Marielle Work Phone: [facility] [employer] 07-08-2023 14:40-0500 Body height 157.48 cm Chapito Brush Other [employer] Other 07-08-2023 14:40-0500 Body mass index (BMI) [Ratio] 20.12 kg/m2 Chapito Brush Other [employer] Other 07-08-2023 14:40-0500 Body weight 49.9 kg Chapito Brush Other [employer] Other 06-29-2023 09:00-0500 Body height 157.48 cm Maurisio Jones Other [employer] Other 06-29-2023 09:00-0500 Body mass index (BMI) [Ratio] 21.03 kg/m2 Maurisio Jones Other [employer] Other 06-29-2023 09:00-0500 Body weight 52.16 kg Maurisio Jones Other [employer] Other 08-18-2022 15:40-0500 Body height 157.48 cm Chapito Brush Other [employer] Other 08-18-2022 15:40-0500 Body mass index (BMI) [Ratio] 20.99 kg/m2 Chapito Brush Other [employer] Other 08-18-2022 15:40-0500 Body weight 52.07 kg Chapito Brush Other [employer] Other 08-18-2022 15:40-0500 Diastolic blood pressure 82 mm[Hg] Chapito Brush Other [employer] Other 08-18-2022 15:40-0500 Systolic blood pressure 130 mm[Hg] Chapito Brush Other [employer] Other 06-02-2022 14:00-0400 Body height 157.48 cm Chapito Brush Other [employer] Other 06-02-2022 14:00-0400 Body mass index (BMI) [Ratio] 21.03 kg/m2 Chapito Brush Other [employer] Other 06-02-2022 14:00-0400 Body weight 52.16 kg Chapito Brush Other [employer] Other 04-28-2022 16:00-0400 Body height 157.48 cm Zeny Kaiser Other [employer] Other 04-28-2022 16:00-0400 Body mass index (BMI) [Ratio] 21.03 kg/m2 Zeny Kaiser Other [employer] Other 04-28-2022 16:00-0400 Body weight 52.16 kg Zeny Kaiser Other [employer] Other 03-10-2022 17:00-0400 Body height 157.48 cm Chapito Brush Other [employer] Other 03-10-2022 17:00-0400 Body mass index (BMI) [Ratio] 21.03 kg/m2 Chapito Brush Other [employer] Other 03-10-2022 17:00-0400 Body weight 52.16 kg Chapito Brush Other [employer] Other Encounters Encounter Date Encounter Type Care Provider Facility Start: 12-17-2023 End: 12-17-2023 ambulatory Imad Asaad Facility:[facility] Start: 12-17-2023 Non-patient / Non-visit II Eduardo Man Work Phone: [facility] Work Phone: Start: 12-17-2023 End: 12-17-2023 Admission to same day surgery center II Eduardo Man Work Phone: [facility] Work Phone: Start: 12-17-2023 End: 12-17-2023 ambulatory II Eduardo Man Work Phone: [facility] Work Phone: Start: 12-07-2023 End: 12-07-2023 ambulatory JACKLYN BONE Not Available Start: 12-02-2023 End: 12-02-2023 ambulatory EDUARDO Charla DONOVAN Not Available Start: 11-25-2023 End: 11-25-2023 ambulatory [facility] Work Phone: Start: 11-25-2023 End: 11-25-2023 Patient encounter procedure [facility] Work Phone: Start: 09-15-2023 Chart abstracting Milagro aguilar ASSOCIATE TRAINER Work Phone: [facility] Start: 09-15-2023 End: 09-15-2023 ambulatory MILAGRO PALOMARES Not Available Start: 09-15-2023 End: 09-15-2023 Office outpatient visit 25 minutes Milagro Palomares ASSOCIATE TRAINER Work Phone: [facility] Comment on above: Chronic idiopathic c onstipation (Primary Dx) Start: 09-02-2023 End: 09-02-2023 ambulatory Maurisio Jones Other [employer] Other Start: 09-02-2023 Office outpatient visit 25 minutes Maurisio Jones [facility] Start: 08-19-2023 End: 08-19-2023 ambulatory Maurisio Jones Facility:[facility] Start: 08-19-2023 End: 08-19-2023 ambulatory II Eduardo Man Work Phone: [facility] Work Phone: Start: 08-19-2023 End: 08-19-2023 Patient encounter procedure II Eduardo Man Work Phone: [facility] [address] Work Phone: Start: 08-16-2023 End: 08-17-2023 ambulatory MILAGRO PALOMARES Not Available Start: 08-04-2023 End: 08-04-2023 ambulatory MILAGRO PALOMARES Not Available Start: 07-15-2023 End: 07-15-2023 ambulatory Maurisio Jones Other [employer] Other Start: 07-15-2023 Office outpatient visit 25 minutes Maurisio Jones [facility] Start: 07-13-2023 End: 07-13-2023 ambulatory Zeny Kaiser Other [employer] Other Start: 07-13-2023 Office outpatient visit 25 minutes Zeny Kaiser [facility] [place] Start: 07-08-2023 End: 07-08-2023 ambulatory Chapito Brush Other [employer] Other Start: 07-08-2023 Office outpatient visit 15 minutes Chapito Brush [facility] Start: 07-05-2023 (Procedure) Short Zeny Kaiser [facility] Start: 07-05-2023 End: 07-05-2023 ambulatory Zeny Kaiser Other [employer] Other Start: 06-29-2023 Office outpatient ne w 45 minutes Maurisio Jones [facility] Start: 06-29-2023 End: 06-29-2023 ambulatory JAZMINE AVENDAÑO [facility] [employer] Other Start: 06-29-2023 End: 06-29-2023 Patient encounter procedure II Eduardo Man Work Phone: [facility] Start: 06-17-2023 End: 06-17-2023 ambulatory Zeny Kaiser Other [employer] Other Start: 06-17-2023 Office outpatient visit 25 minutes Zeny Kaiser [facility] [place] Start: 05-06-2023 End: 05-06-2023 ambulatory Zeny Kaiser Other [employer] Other Start: 05-06-2023 Office outpatient visit 15 minutes Zeny Kaiser [facility] [place] Start: 04-23-2023 End: 04-23-2023 ambulatory Zeny Kaiser Facility:[facility] Start: 04-23-2023 End: 04-23-2023 ambulatory II Eduardo Man Work Phone: [facility] Work Phone: Start: 04-23-2023 End: 04-23-2023 Patient encounter procedure II Eduardo Man Work Phone: [facility] [place] Work Phone: Start: 04-14-2023 (Procedure) Short Zeny Kaiser [facility] Start: 04-14-2023 End: 04-14-2023 ambulatory Zeny Kaiser Other [employer] Other Start: 04-01-2023 End: 04-01-2023 ambulatory Zeny Kaiser Other [employer] Other Start: 04-01-2023 Telephone encounter Zeny [facility] Start: 03-30-2023 End: 03-30-2023 ambulatory Zeny Kaiser Other [employer] Other Start: 03-30-2023 Office outpatient visit 25 minutes Zeny Kaiser [facility] [place] Start: 03-15-2023 End: 03-15-2023 ambulatory Zeny Awilda Other [employer] Other Start: 03-15-2023 Telephone encounter Zeny Méndez [facility] Start: 02-18-2023 End: 02-18-2023 ambulatory Zeny Awilda Other [employer] Other Start: 02-18-2023 Office outpatient visit 15 minutes Zeny Kaiser [facility] [place] Start: 01-28-2023 Office outpatient visit 25 minutes Zeny Kaiser [facility] [place] Start: 01-28-2023 End: 01-28-2023 ambulatory II Eduardo Man Work Phone: [employer] Other Start: 01-28-2023 End: 01-28-2023 Patient encounter procedure II Eduardo Man Work Phone: [facility] Start: 01-06-2023 (Procedure) Short Zeny Kaiser [facility] Start: 01-06-2023 End: 01-06-2023 ambulatory Zeny Kaiser Other [employer] Other Start: 12-21-2022 End: 12-21-2022 ambulatory Zeny Awilda Other [employer] Other Start: 12-21-2022 Office outpatient visit 25 minutes Zeny Awilda [facility] [place] Start: 11-19-2022 End: 11-20-[address] PAULINE JUAREZ Facility:[facility] Start: 11-02-2022 End: 11-02-2022 ambulatory Zeny Kaiser Other [employer] Other Start: 11-02-2022 Telephone encounter [facility] Start: 09-22-2022 End: 09-22-2022 Patient encounter procedure II Eduardo Man Work Phone: [facility] Start: 09-22-2022 End: 09-22-2022 ambulatory II Eduardo Man Work Phone: [facility] Work Phone: Start: 09-22-2022 Office outpatient visit 15 minutes Zeny Awilda [facility] Start: 08-18-2022 End: 08-18-2022 ambulatory Chapito Brush Other [employer] Other Start: 08-18-2022 Office outpatient visit 15 minutes Chapito Brush [facility] Start: 08-11-2022 End: 08-11-2022 ambulatory Zeny Kaiser Other [employer] Other Start: 08-11-2022 Office outpatient visit 15 minutes Zeny Kaiser [facility] Start: 07-20-2022 (Procedure) Short Zeny Kaiser [facility] Start: 07-20-2022 End: 07-20-2022 ambulatory Zeny Cardallen Other [employer] Other Start: 07-06-2022 (Procedure) Short Zeny Kaiser [facility] Start: 07-06-2022 End: 07-06-2022 ambulatory Zeny Kyawallen Other [employer] Other Start: 06-29-2022 End: 06-29-[address] PAULINE JUAREZ Facility:[facility]1 Start: 06-27-2022 End: 06-27-2022 ambulatory SERGIO RAE Facility:[facility]1 Start: 06-22-2022 End: 06-22-2022 ambulatory Zeny Kaiser Other [employer] Other Start: 06-22-2022 Office outpatient visit 25 minutes Zeny Kaiser [facility] Start: 06-02-2022 End: 06-02-2022 ambulatory Chapito Brush Other [employer] Other Start: 06-02-2022 Office outpatient visit 15 minutes Chapito Brush [facility] Start: 05-25-2022 End: 05-25-2022 ambulatory Zeny Cardallen Other [employer] Other Start: 05-25-2022 Telephone encounter Zeny WYATT [facility] Start: 04-30-2022 End: 04-30-2022 ambulatory Zeny Cardallen Other [employer] Other Start: 04-30-2022 Telephone encounter Zeny WYATT G Money Position Officer Start: 04-28-2022 End: 04-28-2022 ambulatory Zeny Kaiser Other [employer] Other Start: 04-28-2022 Office consultation new/estab patient 60 min Zeny Kaiser [facility] [place] Start: 03-18-2022 End: 03-18-2022 ambulatory Chapito Brush Other [employer] Other Start: 03-18-2022 Telephone encounter Chapito Brush [facility] Start: 03-10-2022 End: 03-10-2022 Patient encounter procedure II Eduardo Man Work Phone: [facility] Start: 03-10-2022 End: 03-10-2022 ambulatory Chapito Brush Other [employer] Other Start: 03-10-2022 Office outpatient ne w 30 minutes Chapito Brush [facility] Start: 02-27-2022 End: 02-28-2022 ambulatory BHASKAR KHAN . Facility:[facility]1 Start: 02-22-2022 End: 02-22-[address] FERNANDO CLARK . Facility:[facility] Start: 02-11-2022 End: 02-12-2022 ambulatory ALICIA WAGONER Facility:[facility]1 Start: 01-23-2022 End: 01-24-2022 ambulatory ALICIA WAGONER Facility:[facility] Start: 01-20-2022 End: 01-21-[address] EDUARDO MAN Facility:[facility] Start: 12-12-2021 End: 12-13-[address] PAULINE JUAREZ Facility:[facility]1 Procedures Date Procedure Procedure Detail Performing Clinician Start: 12-17-2023 Colonoscopy II Eduardo Man Work Phone: Start: 08-19-2023 MRI of right shoulder II Eduardo Man Work Phone: Start: 06-29-2023 Plain X-ray of bilateral shoulders II Eduardo Man Work Phone: Start: 04-23-2023 XR pre/post [...] Eduardo Man Work Phone: Start: 01-20-2022 Mammography Milagro Palomares ASSOCIATE TRAINER Work Phone: Start: 07-18-2020 Microscopic observation [Identifier] in Cervix by Cyto stain Milagro Palomares ASSOCIATE TRAINER Work Phone: Start: 01-23-2019 Colonoscopy Milagro Palomares ASSOCIATE TRAINER Work Phone: Start: 09-10-2015 H/O: hysterectomy History of partial hysterectomy Milagro Palomares ASSOCIATE TRAINER Work Phone: Plan of Treatment Date Care Activity Detail Author Start: 01-23-2029 Screening for malign ant neoplasm of colon [facility] Start: 02-06-2024 Influenza vaccination Influenza Vacc ine (#1) [facility] Comment on above: Postponed from 04/09 (Patient Refused) Start: 12-17-2023 [facility] Start: 09-15-2023 End: 09-15-2023 Patient encounter procedure 09/15/2023 8:30 AM EST Office Visit [facility] [address] [facility] [address] [place] [id number] Milagro Palomares ASSOCIATE TRAINER [address] [facility] [address] [place] [address] [facility] Start: 07-18-2023 Screening for malign ant neoplasm of cervix [facility] Start: 01-20-2023 Screening for malign ant neoplasm of breast Mammogram [facility] Start: 2007 Screening for malign ant neoplasm of cervix HPV/Cotest [facility] Start: 1977 Screening for malign ant neoplasm of colon [facility] Patient Education Colon polyps Hemorrhoids (DC) Know your Meds [facility] Work Phone: [facility] Immunizations Immunization Date Immunization Notes Care Provider Fa cility 05-28-2021 COVID-19 mRNA, Comirnaty (Pfizer) II Eduardo Man Work Phone: [facility] 09-18-2020 COVID-19 mRNA, Comirnaty (Pfizer) II Eduardo Man Work Phone: [facility] 08-28-2020 COVID-19 mRNA, Comirnaty (Pfizer) II Eduardo Man Work Phone: [facility] 06-22-2014 seasonal influenza, intradermal, preservative free Milagro Palomares ASSOCIATE TRAINER Work Phone: [facility] 06-22-2014 influenza virus vaccine, unspecified formulation Milagro Palomares ASSOCIATE TRAINER Work Phone: [facility] 01-28-1999 measles, mumps and rubella virus vaccine Milagro Palomares ASSOCIATE TRAINER Work Phone: [facility] Payers Date Payer Category Payer Self-pay [id number] 2022 Unknown BCBS BCBS xxxxxx [id number] 2022-Present [phone] [address] [place] [address] [id number] 1977 Unknown [id number] 2.16.840.1.097689.3.579.2.5 93 1977 Unknown [id number] 2.16.840.1.914309.3.579.2.5 93 1977 Unknown [id number] 2.16.840.1.311906.3.579.2.5 93 1977 Unknown [id number] 2.16.840.1.838961.3.579.2.5 93 1977 Unknown [id number] 2.16.840.1.502446.3.579.2.5 93 1977 Unknown [id number] 2.16.840.1.553546.3.579.2.5 93 1977 Unknown [id number] 2.16.840.1.135112.3.579.2.5 93 1977 Unknown [id number] 2.16.840.1.039629.3.579.2.5 93 1977 Unknown [id number] 2.16.840.1.003297.3.579.2.5 93 1977 Unknown [id number] 2.16.840.1.507002.3.579.2.1 259 1977 Unknown [id number] 2.16.840.1.935210.3.579.2.1 259 1977 Unknown [id number] 2.16.840.1.042546.3.579.2.1 259 1977 Unknown [id number] 2.16.840.1.982950.3.579.2.1 259 1977 Unknown [id number] 2.16.840.1.939186.3.579.2.1 259 1977 Unknown [id number] 2.16.840.1.289944.3.579.2.1 259 1959 [facility] [id number] 2.16.840.1.046743.19 1959 [facility] [id number] 2.16.840.1.912988.19 1959 Unknown [id number] 2.16.840.1.492869.19 1959 Unknown [id number] 1959 Unknown [id number] Private Health Insurance [id number] Unknown [employer] [id number] Unknown [id number] 2.16.840.1.017494.3.579.2.5 31 Unknown [id number] 2.16.840.1.752867.3.579.2.5 31 Unknown [id number] 2.16.840.1.024082.3.579.2.5 31 Unknown [id number] 2.16.840.1.194571.3.579.2.5 31 Unknown [id number] 2.16.840.1.118510.3.579.2.5 31 Social History Date Type Detail Facility Start: 08-04-2023 End: 09-15-2023 Sex Assigned At [facility] Work Phone: Start: 01-23-2019 End: 12-17-2023 Tobacco smoking status GAIS Smoker (finding) [facility] Start: 1975 Sex Assigned At Female [facility] Start: 04-22-2023 Tobacco smoking stat us GAIS Smokes tobacco daily [facility] History of tobacco use Cigarette Smoker [facility] Start: 04-22-2023 End: 09-15-2023 Cigarettes smoked current (pack per day) - Reported 0.5 [facility] Start: 04-22-2023 Tobacco use and exposure Smokeless tobacco non-user [facility] Start: 09-14-2023 End: 09-15-2023 Alcohol intake Current drinker of alcohol (finding) [facility] Start: 04-22-2023 Tobacco Comment 6-10 cigs/dayT hinking about quitting [facility] Start: 05-23-2023 Alcohol Comment Caffeine intak e : 1-2 cups per day / 3 cups per day of coffee [facility] Start: 1975 Sex Assigned At Not on file [facility] Goals Date Patient Goal Desired Activity /State Clinical Notes 06-27-2013 to 12-17-2023 Note Date & Type Note Facility 12-17-[address] [facility] 11-25-2023 Evaluation note Authored November 25, 2023 10:18am 48-year-old female referred to the gastroenterology clinic for evaluation of constipation. Patient reports 1 bowel movement every 3 to 4 days. No alarming signs Last colonoscopy in 2018 was normal. Patient is on Linzess and multiple stool softener without significant improvement of constipation -Will check TSH CRP and fecal calprotectin. -Will arrange for colon cleanout then colonoscopy -Patient was recommended to avoid dehydration, maintain regular activity/exercise, use Miralax 17gm PO Qday and titrate up to twice or three times daily if needed for goal of 1 bowel movement a day. [facility] Work Phone: 1(236) 646-502302-07-2024 History of Present illness Narrative* Milagro Palomares, ASSOCIATE TRAINER - 09/15/2023 8:30 AM EST Subjective Patient ID: Cata Leo [place] is a 48 y.o. female who presents [...] 1 time per day (small bowel movement). Thestool is described as firm, pencil thin, pellet like and formed (stools looks different on different days). The patient is on a high fiber diet. She Exercises regularly. There has Been adequate water intake. Associated symptoms include abdominal pain, back pain, bloating, flatus and nausea. Risk factors: nothing has changed. She has tried laxatives, stool softeners, fiber and diet changes for thesymptoms. The treatment provided no relief. Her past [...] same time. cholecalciferol (Vitamin D-3) 50 MCG (1999 UT) [...] mg) before bedtime. 200 capsule 3 HYDROcodone-acetaminophen (Lupton) 5-325 MG tablet Take 1 tablet by [...] tablet (4 mg) by mouth every 6 (six)hours if needed for nausea or vomiting. 20 [...] Intermittent leg &nerve numbness herniated disc Dr Skyler Tate [facility] Exp Lab 11/2015 MTHFR (methylene [...] Facet Injections L4-L5 08/19/2021, 12/09/2021 PARTIAL HYSTERECTOMY 2009 [place] EDG TRANSORAL BIOPSY SINGLE/MULTIPLE 2012 [place] INJECT TENDON SHEATH/LIGAMENT 06/2015 mid back and [...] yellow or clear like water. At least 1/2body weight in water each day. Include high-fiber foods in your diet each day. These include fruits, vegetables, beans, and whole grains. Get at least 30 minutes of exercise on most days of the week.Take a fiber supplement, such as Citrucel or Metamucil, every day. Probiotics recommended also. Schedule time each day for a bowel movement. A daily routine may help. Take your time having your bowelmovement. No follow-ups on file. [id number] Evaluation note* Encounter Date Diagnosis Assessment Notes Treatment Notes Treatment Clinical Notes Aug, Pain in right shoulder (ICD-10 [...] pain (ICD-10 - G89.29) Aug, Other This documentat ion is being amended on 09/06/23 due to an internal data corruption event that occurred on 09/02/23. This data corruption event was NOT the result of any breach, fraud, or malicious third green party actors and no personal patient information was compromised. [employer] Other 12-07-2023 Evaluation note* Encounter Date Diagnosis [...] Jul, Other chronic pain (ICD-10 - G89.29) [employer] Other 12-05-2023 Evaluation note* Encounter Date Diagnosis [...] note writ ten by Polo Andino MA, Barrel Repairer. Edited and approved by Dr. Zeny Kaiser MD. [employer] Other 11-30-2023 Evaluation note* Encounter Date Diagnosis [...] Jun, Spondylolisthesis, lumbosacral region (ICD-10 - M43.17) [employer] Other 11-21-2023 Evaluation note* Encounter Date Diagnosis [...] Jun, Other chronic pain (ICD-10 - G89.29) [employer] Other 11-09-2023 Evaluation note* Encounter Date Diagnosis [...] note writ ten by Polo Andino MA, Barrel Repairer. Edited and approved by Dr. Zeny Kaiser MD. [employer] Other 09-28-2023 Evaluation note* Encounter Date Diagnosis [...] note writ ten by Andreea Colon LPN, Barrel Repairer. Edited and approved by Dr. Zeny Kaiser MD. [employer] Other 08-22-2023 Evaluation note* Encounter Date Diagnosis [...] note writ ten by Andreea Colon LPN, Barrel Repairer. Edited and approved by Dr. Zeny Kaiser MD. [employer] Other 07-13-2023 Evaluation note* Encounter Date Diagnosis [...] note writ ten by Polo Andino MA, Barrel Repairer. Edited and approved by Dr. Zeny Kaiser MD. [employer] Other 06-22-2023 Evaluation note* Encounter Date Diagnosis [...] note writ ten by Polo Andino MA, Barrel Repairer. Edited and approved by Dr. Zeny Kaiser MD. [employer] Other 05-15-2023 Evaluation note* Encounter Date Diagnosis [...] note writ ten by Andreea Colon LPN, Barrel Repairer. Edited and approved by Dr. Zeny Kaiser MD. [employer] Other 02-14-2023 Evaluation note* Encounter Date Diagnosis [...] note writ ten by Andreea Colon LPN, Barrel Repairer. Edited and approved by Dr. Zeny Kaiser MD. [employer] Other 01-10-2023 Evaluation note* Encounter Date Diagnosis [...] Aug, Spondylolisthesis, lumbosacral region (ICD-10 - M43.17) [employer] Other 01-03-2023 Evaluation note* Encounter Date Diagnosis [...] note writ ten by Andreea Colon LPN, Barrel Repairer. Edited and approved by Dr. Zeny Kaiser MD. [employer] Other 11-14-2022 Evaluation note* Encounter Date Diagnosis [...] note writ ten by Andreea Colon LPN, Barrel Repairer. Edited and approved by Dr. Zeny Kaiser MD. [employer] Other 10-25-2022 Evaluation note* Encounter Date Diagnosis [...] and sacroiliac pain and takes Valium and Lupton chronically as well as gabapentin 400 mg p.o. twice daily. Her back is feeling better after some injections that she got. I recommend that she continues to get these injections and that she at least taper down her gabapentin to half the amount. She then needs to begin working on tapering down Lupton and Valium. At this point she is not a good operative candidate with this medication mix. I will see her back at the beginning of the year to see how she is doing May, Spondylolisthesis, lumbosacral region (ICD-10 - M43.17) [employer] Other 09-20-2022 Evaluation note* Encounter Date Diagnosis [...] note writ ten by Andreea Colon LPN, Barrel Repairer. Edited and approved by Dr. Zeny Kaiser [...] negative findings were considered in medical decision-making. [employer] Other 08-02-2022 Evaluation note* Encounter Date Diagnosis [...] with sciatica, left side (ICD-10 - M54.42) [employer] Other 01-04-2022 NotePROCEDURE: [employer] VCT 64, 5.0 mm slice axial images [...] and signed by Tin Islas on 08/12/2021 [id number] [id number] History general Narrative - Reported* Type Description Date Medical History asthma Medical History allergic rhinitis Medical History 06/27/13 Capsule endoscopy-rapid transit Medical History 06/07/13 Colonoscopy-tubular jazmin noma Medical History 04/28/13 EGD/Ramsay-hiatal hernia, no acid reflux Surgical History Partial hysterectomy Surgical History blood transfusion Surgical History Back Surgery 2014 Hospitalization History See above [employer] Other evaluation noteNo InformationNort [employer] Other evalaugdkf noteNo assessment information available [facility] Work Phone: Evaluation note* Diagnosis Chronic idiopathic constipation- Primary Unspecified constipation documented in this encounter [facility] HealthcareEvaluation note* Diagnosis Onset Date Resolution Status Constipation acute [facility] Work Phone: Hospital Discharge instructions Additional Instructions DISCHARGE INSTRUCTIONS FOR COLONOSCOPY WHAT TO EXPECT: - You may feel full, gassy or cramping after your procedure. In some cases, this may be from a few hours to a day. Walking may help relieve the discomfort. - If you have polyp(s) removed you may note some minor bloody discharge after your first bowel movements. - You should begin to recover from anesthesia within 1 hour of the procedure, however may feel groggy for the next 24 hours. DO's AND DON'Ts: - Call your doctor right away if you have a hard abdomen, severe pain, are passing lots of bright red blood or clots. - Call your doctor if you develop any rashes, hives or difficulty breathing. - Let your doctor know if you have not had a bowel movement by 3 days after your procedure. - If you take 81 mg aspirin for your heart it is safe to resume this medication. - If you take other blood thinner medications your doctor will instruct you when these can safely be resumed. - Do NOT drive for 24 hours. - Do NOT operate machinery such as power tools, lawn mowers, snow blowers, sewing machines, etc. for 24 hours. - Avoid alcoholic beverages and drugs for allergies, nerves, or sleep. - Do NOT stay alone. Do NOT leave your child unattended. - Do NOT make important personal or business decisions or sign any legal documents. - Eat solid foods and drink liquids in smaller amounts than usual until normal appetite returns. If you should experience an upset stomach, liquids high in sugar content (soda, Isai-Aid, non-acid juices) are recommended. - You can resume normal activities tomorrow. FOLLOW UP & RECOMMENDATIONS: -Notify the doctor if you have any problems. -Repeat colonoscopy in 6 months -Follow up with PCP. -Office number [phone]. [facility] Work Phone: [facility] (narrative)* Consultation (Routine) - Authorized Specialty Diagnoses / Procedures Referred By Teto eaton Referred To Contact Gastroenterology Diagnoses Chronic idiopathic constipation Procedures [place] OFFICE/OUTPATIENT [facility] 60 MINUTES Milagro Palomares, SEBASTIAN [address] [facility] [address] [place] [address] Ankur Benavides MD [address] [place] [address] [address] [place] [address] Referral ID Status Reason Start Date Expiration Date Visits Requested Visits Authorized [id number] Authorized Specialty Services Required 09/15/2023 03/13/2024 1 1 MEDICINE [facility] Healthcare Summary Purpose Family History No Family History Records Found Relationship Condition Age at Onset Recorded Date/T garcia father Cerebrovascular accident (CVA) Unknown Heart disease Unknown Peripheral vascular disease Unknown Relationship Condition Age at Onset Recorded Date/T garcia father Cerebrovascular accident (CVA) Unknown Heart disease Unknown Peripheral vascular disease Unknown father Hypertension Unknown Relationship Condition Age at Onset Recorded Date/T garcia father Heart disease Unknown Peripheral vascular disease Unknown Cerebrovascular accident (CVA) Unknown Hypertension Unknown Myocardial infarction Unknown brother Hypertension Unknown Advance Directives No Advanced Directives Records Found Advance Directive Response Recorded Date/ Time Advance Directives No January 20 9:27am Advance Directive Response Recorded Date/ Time Advance Directives No January 20 8:27am Reason for Referral Reason Evaluate and Treat B ack and Leg Pain Diagnosis 1 Left lumbar radiculo prema (M54.16) Referral Organization [facility] Ne urosurgery Referring Provider First Name Chapito Referring Provider Last Name Gonsalo Referring Provider Specialty Neurologica l Surgery Referred Organization [facility] Referred Address ,[place], [place],[address] Referred Provider Specialty Physical The rapist Referral Priority Routine Reason DAYANA shoulder pa in, please evaluate Diagnosis 1 Shoulder pain (M25.5 19) Referral Organization [facility] [place] Referring Provider First Name Zeny Referring Provider Last Name Awilda Referring Provider Specialty Pain Medici ne Referred Organization [facility] Ortho pedics Referred Provider Maurisio Jones Referred Address [address] [facility] [place] [place],[address] Referred Provider Specialty Orthopedic S urgery Referral Priority Routine General Notes Errol Kaye 06/17 10:10:57 AM > Received referral today, sent P2P Chief Complaint and Reason for Visit Chief Complaint M54.16 Chief Complaint M25.511 M47.22 Chief Complaint M25.511;M25.512 M24.811 Chief Complaint chronic constipation Reason for Visit Constipation Chief Complaint chronic constipation constipation/abd. pain constipation/abd. pain Reason for Visit Constipation Additional Source Comments INFORMATION SOURCE (unrecogn ized section and content) DATE CREATED AUTHOR 08/13/2021 [facility] dical Specialist DATE CREATED AUTHOR AUTHOR'S PADMAJA ATERVIN 11/20/2022 [facility] DATE CREATED AUTHOR AUTHOR'S ORGANIZ ATION 12/08/2023 [facility] dical Specialists EPIC DATE CREATED AUTHOR AUTHOR'S ORGANIZ ATION 12/31/2023 [facility] ysician Group REASON FOR VISIT (unrecogniz ed section and content) Reason Comments Constipation Care Teams (unrecognized sec [...] Active Maurisio Jones DO Attending Provider Active Die Engraving Supervisor Relationship Specialty Start Date End Date Eduardo Man MD [address] [facility] [address] [place] [address] PCP - General Internal Medicine 01/04/23 Eduardo Man MD [address] [facility] [address] [place] [address] PCP - Cecil Commercial 04/09/23 Die Engraving Supervisor Relationship Specialty Start Date End Date Eduardo Man MD [address] [facility] [address] [place] [address] PCP - General Internal Medicine 01/04/23 Eduardo Man MD [address] [facility] [address] [place] [address] PCP - [employer] 04/09/23 Team Status: Inactive Member Role Status Dates Eduardo Man II MD Primary Care Provider Active Start: November 25, 2023 End: November 25, 2023 Martita Pandey MD Attending Provider Active Start: November 25, 2023 End: November 25, 2023 Team Status: Inactive Member Role Status Dates Eduardo aMn II MD Primary Care Provider Active Start: December 17, 2023 End: December 17, 2023 Martita Pandey MD Attending Provider Active Start: December 17, 2023 End: December 17, 2023 Team Status: Active Member Role Status Dates Eduardo Man II MD Primary Care Provider Active Start: December 17, 2023 Martita Pandey MD Attending Provider, Other Provider Act kelton Start: December 17, 2023 Goals (unrecognized section and content) Goals may [...] BE BASED ON THE PRIMARY CLINICAL RECORDS. [employer] provides no warranty or guarantee of the accuracy or completeness of information in this document.
== END 2024-01-04 21:42 | disposition home or self-care (01) ==
LOC: LAB 21:41
PROVIDERS: PCP Internal Medicine; Visit Provider Obstetrics & Gynecology
DX: Z01.419 Encounter for gynecological examination (general) (routine) without abnormal findings (principal)
CPT/HCPCS: 87624; 88175

== ENCOUNTER 2024-01-28 09:16 | Outpatient (OUT) | payer BC, SELFPAY ==
--- OUTSIDE RECORDS SUMMARY | 2024-01-28 09:22 | XMS_ITS | CCD ---
Author Organization [facility] Care Team Providers Care Education Intern Name Role Phone Chapito Brush Unavailable OTILIA Man Primary Care Provider [phone] MD Chapito Brush Attending Provider [phone] Zeny Kaiser Unavailable OTILIA Man Primary Care Provider MD Zeny Kaiser Attending [...] HEMMER, DR PAULINE Gu Consulting Unavailable AMBER ., DR KING Attending Unavailable AVILES ., MR VALERA Consulting Unavailable DONOVAN, DR KABA Primary Care Unavailable AMBER Garza, DR KING Admitting Unavailable SERGIO RAE Consulting Unavailable SERGIO RAE Attending Unavailable DONOVAN, DR KABA Primary Care Unavailable SERGIO RAE Admitting Unavailable JAZMINE AHRVEY Consulting Unavailable BILL .BHASKAR Consulting Unavailable BILL .BHASKAR Attending Unavailable BILL ., BHASKAR Admitting Unavailable DONOVAN, DR KABA Primary Care [facility] Referring Unavailable ALICIA WAGONER Attending Unavailable ALICIA WAGONER Admitting Unavailable DONOVAN, DR KABA Primary Care Unavailable ALICIA WAGONER Admitting Unavailable ALICIA WAGONER Attending Unavailable LEIGHA, DR SKYLER Hurley Consulting Unavailable DONOVAN, DR KABA Primary Care Unavailable ALICIA WAGONER Consulting Unavailable DONOVAN, DR KABA Consulting Unavailable MAN, DR KABA Attending Unavailable DONOVAN, DR KABA Admitting Unavailable DONOVAN, DR KABA Primary Care Unavailable EDITH ., DR BAPTISTE Consulting Unavailable LEIGHA, DR SKYLER Hurley Consulting Unavailable Man, II Eduardo Primary Care Provider MD Zeny Kaiser Attending Provider Man, II Eduardo Primary Care Provider MD Zeny Kaiser Attending Provider Maurisio Jones Unavailable Man, II Eduardo Primary Care Provider DO Maurisio Jones Attending Provider Eduardo Man MD Primary Care Provider Eduardo Man MD Unavailable Donovan, II Eduardo Primary Care Provider MD Martita Pandey Attending Provider [phone] Zeny Kaiser Admitting Unavailable Zeny Kaiser Attending Unavailable Eduardo Man Primary Care Unavailable Maurisio Jones Attending Unavailable Eduardo Man Primary Care Unavailable Maurisio Jones Admitting Unavailable Maurisio Jones Attending Unavailable Eduardo Man Primary Care Unavailable Maurisio Jones Admitting Unavailable Asaad, Imnabil Admitting Unavailable Asaad, Imad Attending Unavailable Eduardo Man Primary Care Unavailable Zeny Kaiser Admitting Unavailable Zeny Kaiser Attending Unavailable Eduardo Man Primary Care Unavailable MILAGRO PALMOARES Attending Unavailable MILAGRO PALOMARES Referring Unavailable JAZMINE AVENDAÑO Attending Unavailable ZENY KAISER Referring Unavailable MILAGRO PALOMARES Attending Unavailable EDUARDO MAN Attending Unavailable JACKLYN BONE Attending Unavailable EMILE BERGMAN Attending Unavailable ALICIA WAGONER Attending Unavailable PAULINE JUAREZ Attending Unavailable EMILE BERGMAN Attending Unavailable Allergies Allergy Classification Reported Allergen(s) Allergy Type Date of Onset Reaction(s) Facility (1 source) egg extract Drug Allergy 09-17-2014 [facility] (1 source) Papaveretum Drug Allergy 09-17-2014 [facility] (1 source) venlafaxine Drug Allergy 09-17-2014 [facility] (1 source) Wheat preparation Drug Allergy 09-17-2014 [facility] (3 sources) venlafaxine Drug Allergy 08-15-2021 [facility] Medications Current Medications Medication Drug Class(es) Dates Sig (Normalized) Sig (Original) acetaminophen 325 mg / HYDROcodone bitartrate 5 mg oral tablet (20 sources) Opioid Agonist Start: 08-30-2023 take 1 tablet by mouth every six hours HYDROcodone-acetamin ophen (Hobbs) 5-325 MG tablet Indications: Degeneration of lumbar [...] take 1 puff(s) by inhalation twice daily [id number] actuat albuterol 0.09 mg/actuat metered dose [...] 3 05/19/2023 Active take 1 capsule by [facility] every twenty-four hours Gabapentin 400 MG [...] g oral tablet (11 sources) Antiemetic Start: 12-03-2023 Meclizine Acti ve 25 MG PO 2-3 [...] Start: 02-15-2023 take 1 capsule by mo ut once daily omeprazole (PriLOSEC) [address] [...] health; Translations: [Other specified anxiety disorders] Onset: 01-07-2023 Chronic Asthma (13 sources) Mild intermittent [...] Translations: [Other diseases of salivary glands] Onset: 01-07-2023 Episodic E Codes: Fall (1 source) Unspecified fall, initial encounter; Translations: [UNSPECIFIED FALL INITIAL ENCOUNTER] Onset: Episodic Genitourinary symptoms and ill-defined conditions (3 sources) Delay when starting to pass urine; Translations: [Hesitancy of micturition] Onset: 01-07-2023 Episodic Nonspecific chest pain (4 sources) Other chest pain; Translations: [OTHER CHEST PAIN] Onset: Episodic Other aftercare (1 source) Other assisted (current) drug therapy; Translations: [[facility] SENIOR CARE CURRENT DRUG THERAPY] Onset: Episodic Other and [...] unspecified adrenal gland] Onset: 01-07-2023 Episodic Other connective tissue disease (2 [...] imaging of other specified body structures] Onset: 021 Resolve d: 3 Chronic Other screening for suspected conditions (not [...] Test Name Value Interpretation Reference Range Facility [facility] 12-17-2023 L Specimen: [id number] Received: 12/17/23 Status: TROY [place] Num: [id number] Spec Type: Surgical Subm Dr: Martita Pandey MD Tissues: A Colon Biopsy (ASCENDING COLON POLYP) Procedures: HE/2, Gross/Micro L4 Age/ Patient Sex Location Account Attending Physician Dayanara,Cata Leo 48/F [id number] Martita Pandey MD SPEC NUM: [id number] RECD: 12/17/23 STATUS: [place] NUM: [id number] ZACH: 12/17/[address] [facility] [address]: Martita Pandey MD ENTERED: 12/17/23 [facility] DR: SPEC TYPE: Surgical DEPT: S ORDERED: [...] Clinical history: Constipation, abdominal pain CPT Codes 43930 -------- -------- Specimen: [id number] Received: 12/17/23 Status: TROY [place] Num: [id number] Spec Type: Surgical Subm Dr: Martita Pnadey MD Tissues: A Colon Biopsy (ASCENDING COLON POLYP) Procedures: HE/2, Gross/Micro L4 -------- Patient: Cata Nichole [id number] (Continued) -------- Signed (signature on file) Isai Sampson MD 12/20/23 1414 Normal [facility] MR shoulder RT wo conon 08-09 [place] [address] MRI Report Signed Patient: Cata Nichole MR#: [id number] : 1975 Acct:[id number] Age/Sex: 48 / F ADM Date: 08/19/23 Loc: [facility] Room: Type: [facility] Attending Dr: Maurisio Jones DO Copies to: [...] Martinez Jr., D.OKayla08/19/2023 2:20 PM Dictation Location: [place] [address] Transcribed By: [facility] 08/19/23 1420 Dictated By: Tin Martinez Jr, DO 08/19/23 1415 Signed By: 08/19/23 1420 Normal [facility] CT ABDOMEN PELVIS W AND WO [...] Isovue-300, 100 mL.. Comparison: CT abdomen pelvis, [facility], November 25, 2018.. Findings: Lungs: Lung [...] 2Von 06-10 XR shoulder BI min 2V [facility] [address] [place] [address] XRay Report Signed Patient: Cata Nichole MR#: [id number] : 1975 Acct:[id number] Age/Sex: 48 / F ADM Date: 06/29/23 Loc: [facility] Room: Type: [facility] Attending Dr: Maurisio Jones DO Copies to: [...] Donald Jones M.D.06/29/2023 12:16 PM Dictation Location: [facility]--12 Transcribed By: [facility] 06/29/23 1216 Dictated By: Donald Jones II, MD 06/29/231212 Signed By: 06/29/23 121 Normal [facility] XR shoulder BI min 2V [facility] [employer] Other XR shoulder BI min 2V [facility] [employer] Other XR shoulder BI min 2V [address] [place] [address] dINK [facility] [employer] Other XR shoulder BI [place] 2[place] [address] [employer] Other XR shoulder BI min 2V XRay Report [facility] Other XR shoulder BI min 2V Signed [facility] Other XR shoulder BI min 2V Patient: Cata Nichole MR#: [id number] [facility] Other XR shoulder BI min 2V 2779 [facility] Other XR shoulder BI min 2V : 1975 Acct:[id number] [facility] Other XR shoulder BI min 2V Age/Sex: 48 / F ADM Date: 06/29/23 [facility] Other XR shoulder BI min 2V Loc: [facility] Room: Type: [facility] Other XR shoulder BI min 2V Attending Dr: Maurisio Jones DO [facility] Other XR shoulder BI min 2V Copies to: Maurisio Jones DO [facility] Other XR shoulder BI min 2V Ordering Provider: Maurisio Jones DO [facility] Other XR shoulder BI min 2V Date of Service: 06/29/23 [facility] Other XR shoulder BI min 2V XR/XR shoulder BI min 2V: Pain in right shoulder;Pain in left shoulder [facility] Other XR shoulder BI min 2V XR shoulder BI min 2V 06/29/2023 9:17 AM [facility] Other XR shoulder BI min 2V SIGNS AND SYMPTOMS: Bilateral shoulder pain [facility] Other XR shoulder BI min 2V PROTOCOL: Frontal, Grashey, scapular Y, and axillary views of the bilateral shoulders [facility] Other XR shoulder BI min 2V COMPARISON: None [facility] Other XR shoulder BI min 2V FINDINGS: [facility] Other XR shoulder BI min 2V The acromioclavicular joint and glenohumeral joint are preserved bilaterally. There is no fracture [facility] Other XR shoulder BI min 2V or dislocation. The visualized right and left hemithorax are grossly intact. [facility] Other XR shoulder BI min 2V XR/XR shoulder BI min 2V [facility] Other XR shoulder BI min 2V IMPRESSION: [facility] Other XR shoulder BI min 2V No acute bony injury or significant degenerative change. [facility] Other XR shoulder BI min 2V Impression dictated by: Donald Jones M.D.06/29/2023 12:16 PM [facility] Other XR shoulder BI min 2V Dictation Location: [place] [address] [employer] Other XR shoulder BI min 2V Transcribed By: COURTNEY 06/29/23 1216 [facility] Other XR shoulder BI min 2V Dictated By: Donald Jones II, MD 06/29/23 1213 [facility] Other XR shoulder BI min 2V Signed By: [facility] Other XR shoulder BI min 2V 06/29/23 1211 [facility] Other XR pre/post mri xrayon 04-23 XR pre/post mri xray [facility] [address] [place] [address] MRI Report Signed Patient: Cata Nichole MR#: [id number] : 1975 Acct:[id number] Age/Sex: 47 / F ADM Date: 04/23/23 Loc: MR Room: Type: [facility] Attending Dr: Zeny Kaiser MD Copies to: Zeny Kaiser MD Ordering Provider: Zeny Kaiser MD Date of Service: 04/23/23 MR/MR cervical spine wo con: further evaluation;Other spondylosis with radiculopathy, cer ([id number]) XR/XR pre/post mri xray: OBLIQUE ONLY MR [...] PM Dictation Location: [facility]12 Transcribed By: [facility] 04/23/23 1550 Dictated By: Donald Jones II, MD 04/23/23 1548 Signed By: 04/23/23 8539 Normal [facility] XR cerv spine AP/LAT/FLX/EXT on 01-28-2023 XR cerv spine AP/LAT/FLX/EXT [facility] [employer] Other XR cerv spine AP/LAT/FLX/EXT [facility] [employer] Other XR cerv spine AP/LAT/FLX/EXT [address] [place] [address] [employer] Other XR cerv spine AP/LAT/FLX/[place] [address] [employer] Other XR cerv spine AP/LAT/FLX/EXT XRay Report [facility] Other XR cerv spine AP/LAT/FLX/EXT Signed [facility] Other XR cerv spine AP/LAT/FLX/EXT Patient: Cata Nichole MR#: [id number] [facility] Other XR cerv spine AP/LAT/FLX/EXT 0199 [facility] Other XR cerv spine AP/LAT/FLX/EXT : 1975 Acct:[id number] [facility] Other XR cerv spine AP/LAT/FLX/EXT Age/Sex: 47 / F ADM Date: 01/28/23 [facility] Other XR cerv spine AP/LAT/FLX/EXT Loc: [facility] Room: Type: [facility] Other XR cerv spine AP/LAT/FLX/EXT Attending Dr: Zeny Kaiser MD [facility] Other XR cerv spine AP/LAT/FLX/EXT Copies to: Zeny Kaiser MD [facility] Other XR cerv spine AP/LAT/FLX/EXT Ordering Provider: Zeny Kaiser MD [facility] Other XR cerv spine AP/LAT/FLX/EXT Date of Service: 01/28/23 [facility] Other XR cerv spine AP/LAT/FLX/EXT XR/XR cerv spine AP/LAT/FLX/EXT: PAIN [facility] Other XR cerv spine AP/LAT/FLX/EXT CERVICAL SPINE WITH FLEXION-EXTENSION VIEWS - 4 views [facility] Other XR cerv spine AP/LAT/FLX/EXT COMPARISON: None [facility] Other XR cerv spine AP/LAT/FLX/EXT CLINICAL DATA: Neck pain radiating to the right eye and down the left hand. No injury. [facility] Other XR cerv spine AP/LAT/FLX/EXT AP as well as lateral views in neutral, flexion and extension were obtained. There are no acute [facility] Other XR cerv spine AP/LAT/FLX/EXT fractures. No displacement or instability is seen. There is mild disc space narrowing at C6-7 [facility] Other XR cerv spine AP/LAT/FLX/EXT along with endplate spurring. There is additional minor plate spurring and facet sclerosis. No [facility] Other XR cerv spine AP/LAT/FLX/EXT prevertebral soft tissue swelling is identified. [facility] Other XR cerv spine AP/LAT/FLX/EXT XR/XR cerv spine AP/LAT/FLX/EXT [facility] Other XR cerv spine AP/LAT/FLX/EXT IMPRESSION: [facility] Other XR cerv spine AP/LAT/FLX/EXT MILD DEGENERATIVE CHANGE , PRIMARILY AT THE C6-7 LEVEL. [facility] Other XR cerv spine AP/LAT/FLX/EXT Impression dictated by: Pauline Fernandes M.D.01/28/2023 10:52 AM [facility] Other XR cerv spine AP/LAT/FLX/EXT Dictation Location: [place] [address] [employer] Other XR cerv spine AP/LAT/FLX/EXT Transcribed By: COURTNEY 01/28/23 1052 [facility] Other XR cerv spine AP/LAT/FLX/EXT Dictated By: Pauline Fernandes MD 01/28/23 1049 [facility] Other XR cerv spine AP/LAT/FLX/EXT Signed By: [facility] Other XR cerv spine AP/LAT/FLX/EXT 01/28/23 105 [facility] Other XR cerv spine AP/LAT/FLX/EXT [facility] [address] [place] [address] XRay Report Signed Patient: Cata Nichole MR#: [id number] : 1975 Acct:[id number] Age/Sex: 47 / F ADM Date: 01/28/23 Loc: [facility] Room: Type: [facility] Attending Dr: Zeny Kaiser MD Copies to: [...] Pauline Fernandes M.D.01/28/2023 10:52 AM Dictation Location: [place] [address] Transcribed By: [facility] 01/28/23 1052 Dictated By: Pauline Fernandes MD 01/28/23 1049 Signed By: 01/28/23 1052 Normal [facility] XR CHEST 2 Von 11-19-2022 XR CHEST 2 V EXAM: Chest x-ray HISTORY: . Cough . COMPARISON: 12/12/2021 TECHNIQUE: Frontal and lateral chest FINDINGS: Heart and vascularity are unremarkable. Lungs are expanded and free of focal infiltrates. No acute bony abnormality is appreciated. IMPRESSION: No acute heart or lung disease identified. Electronically authenticated by: JAZMINE LIAO Date: 2022-11-19 17:19 Normal [facility] XR shoulder RT min 2V*on XR shoulder RT min 2V* [facility] [employer] Other XR shoulder RT min 2V* [facility] [employer] Other XR shoulder RT min 2V* 1[address] [facility] [employer] Other XR shoulder RT min 2V* JAIDEN [place]an[place] [address] [facility] Other XR shoulder RT min 2V* XRay Report [facility] Other XR shoulder RT min 2V* Signed [facility] Other XR shoulder RT min 2V* Patient: Cata Nichole MR#: [id number] [facility] Other XR shoulder RT min 2V* 2779 [facility] Other XR shoulder RT min 2V* : 1975 Acct:[id number] [facility] Other XR shoulder RT min 2V* Age/Sex: 47 / F ADM Date: 09/22/22 [facility] Other XR shoulder RT min 2V* Loc: [facility] Room: Type: [facility] Other XR shoulder RT min 2V* Attending Dr: Zeny Kaiser MD [facility] Other XR shoulder RT min 2V* Copies to: Zeny Kaiser MD [facility] Other XR shoulder RT min 2V* Ordering Provider: Zeny Kaiser MD [facility] Other XR shoulder RT min 2V* Date of Service: 09/22/22 [facility] Other XR shoulder RT min 2V* XR/XR shoulder RT min 2V*: Pain in right shoulder [facility] Other XR shoulder RT min 2V* RIGHT SHOULDER - - 4 views [facility] Other XR shoulder RT min 2V* CLINICAL HISTORY: Right anterolateral shoulder pain for one month. [facility] Other XR shoulder RT min 2V* COMPARISON: None [facility] Other XR shoulder RT min 2V* FINDINGS: [facility] Other XR shoulder RT min 2V* Minimal degenerative change of the AC joint without acute bony process. [facility] Other XR shoulder RT min 2V* XR/XR shoulder RT min 2V* [facility] Other XR shoulder RT min 2V* IMPRESSION: [facility] Other XR shoulder RT min 2V* MINIMAL DEGENERATIVE CHANGE INVOLVING THE RIGHT SHOULDER WITHOUT ACUTE BONY PROCESS. [facility] Other XR shoulder RT min 2V* Impression dictated by: Tin Martinez Jr., D.O.09/22/2022 4:40 PM [facility] Other XR shoulder RT min 2V* Dictation Location: [place] [address] [facility] Other XR shoulder RT min 2V* Transcribed By: [facility] 09/22/22 [facility] Other XR shoulder RT min 2V* Dictated By: Tin Martinez Jr, DO 09/22/22 1639 [facility] Other XR shoulder RT min 2V* Signed By: [facility] Other XR shoulder RT min 2V* 09/22/22 [facility] [employer] Other RESPIRATORY PANEL PLUSon Adenovirus Not detected Normal NOT DETECTED [facility] Comment on above: Performed By: #### R SPLUS #### [facility] [address] [place] [address] [address] Aidan Dunham. Parapertusis Not detected Normal NOT DETECTED [facility] Comment on above: Performed By: #### R SPLUS #### [facility] [address] [place] [address] [address] Aidan Dunham. Pertussis Not detected Normal NOT DETECTED [facility] Comment on above: Performed By: #### R SPLUS #### [facility] [address] [place] [address] Dr. Aidan Mccain Chlamydia Pneumoniae Not detected Normal NOT DETECTED [facility] Comment on above: Performed By: #### R SPLUS #### [facility] [address] [place] [address] Dr. Aidan Mccain Coronavirus 229E Not detected Normal NOT DETECTED [facility] Comment on above: Performed By: #### R SPLUS #### [facility] [address] [place] [address] Dr. Aidan Mccain Coronavirus HKU1 Not detected Normal NOT DETECTED [facility] Comment on above: Performed By: #### R SPLUS #### [facility] [address] [place] [address] Dr. Aidan Mccain Coronavirus NL63 Not detected Normal NOT DETECTED [facility] Comment on above: Performed By: #### R SPLUS #### [facility] [address] [place] [address] Dr. Aidan Mccain Coronavirus OC43 Not detected Normal NOT DETECTED [facility] Comment on above: Performed By: #### R SPLUS #### [facility] [address] [place] [address] Dr. Aidan Mccain Influenza A H1 2009 Not detected Normal NOT DETECTED [facility] Comment on above: Performed By: #### R SPLUS #### [facility] [address] [place] [address] Dr. Aidan Mccain Influenza A H3 Not detected Normal NOT DETECTED [facility] Comment on above: Performed By: #### R SPLUS #### [facility] [address] [place] [address] Dr. Aidan Mccain Influenza B Not detected Normal NOT DETECTED [facility] Comment on above: Performed By: #### R SPLUS #### [facility] [address] [place] [address] Dr. Aidan Mccain Metapneumovirus Not detected Normal NOT DETECTED [facility] Comment on above: Performed By: #### R SPLUS #### [facility] [address] [place] [address] Dr. Aidan Mccain Mycoplas. Pneumoniae Not detected Normal NOT DETECTED [facility] Comment on above: Performed By: #### R SPLUS #### [facility] [address] [place] [address] Dr. Aidan Mccain Parainfluenza 1 Not detected Normal NOT DETECTED [facility] Comment on above: Performed By: #### R SPLUS #### [facility] [address] [place] [address] Dr. Aidan Mccain Parainfluenza 2 Not detected Normal NOT DETECTED [facility] Comment on above: Performed By: #### R SPLUS #### [facility] [address] [place] [address] Dr. Aidan Mccain Parainfluenza 3 Not detected Normal NOT DETECTED [facility] Comment on above: Performed By: #### R SPLUS #### [facility] [address] [place] [address] Dr. Aidan Mccain Parainfluenza 4 Not detected Normal NOT DETECTED [facility] Comment on above: Performed By: #### R SPLUS #### [facility] [address] [place] [address] Dr. Aidan Mccain Rhino/Enterovirus Not detected Normal NOT DETECTED [facility] Comment on above: Performed By: #### R SPLUS #### [facility] [address] [place] [address] Dr. Aidan Mccain RP2 Header 1 RESPIRATORY PANEL: VIRUSES Normal [facility] Comment on above: Performed By: #### R SPLUS #### [facility] [address] [place] [address] Dr. Aidan Mccain RP2 Header 2 RESPIRATORY PANEL: BACTERIA Normal [facility] Comment on above: Performed By: #### R SPLUS #### [facility] [address] [place] [address] Dr. Aidan Mccain RSV Not detected Normal NOT DETECTED [facility] Comment on above: Performed By: #### R SPLUS #### [facility] [address] [place] [address] Dr. Aidan Mccain SARS-CoV-2 (COVID-19) RNA ELEUTERIO+probe Ql (Unsp spec) Not detected Normal NOT DETECTED [facility] Comment on above: Performed By: #### R SPLUS #### [facility] [address] [place] [address] Dr. Aidan Mccain XR LSPINE 2_3 VIEWSon [...] JAZMINE HARVEY Date: 2022-06-27 18:37 Normal [facility] CULTURE URINEon 02-22-2022 CULTURE URINE Culture Observations : HEAVY GROWTH OF MIXED GENITAL DALTON. NO POTENTIAL PATHOGENS SEEN. Normal [facility] Comment on above: Performed By: #### U RCX #### [facility] [address] [place] [address] Dr. Aidan Mccain ER URINE PROFILEon 2 Bilirubin Ql (U) Negative Normal NEGATIVE [facility] Comment on above: Performed By: #### E SHELDON UMICRO #### [facility] [address] [place] [address] Dr. Aidan Mccain Clarity (U) CLEAR Normal CLEAR [facility] Comment on above: Performed By: #### E RUXavi UMICRO #### [facility] [address] [place] [address] Dr. Aidan Mccain Color (U) LT. YELLOW Normal YELLOW [facility] Comment on above: Performed By: #### E RUR UMICRO #### [facility] [address] [place] [address] Dr. Aidan Mccain ERUAHD A micrscopic examination will be performed if indicated. Normal [facility] Comment on above: Performed By: #### E RUR, UMICRO #### [facility] [address] [place] [address] Dr. Aidan Mccain Glucose Ql (U) Negative Normal NEGATIVE [facility] Comment on above: Performed By: #### PRASANTH WHEELERRO #### [facility] [address] [place] [address] Dr. Aidan Mccain Hemoglobin Ql (U) Negative Normal NEGATIVE [facility] Comment on above: Performed By: #### PRASANTH WHEELERRO #### [facility] [address] [place] [address] Dr. Aidan Mccain Ketones Ql (U) Negative Normal NEGATIVE [facility] Comment on above: Performed By: #### PRASANTH WHEELERRO #### [facility] [address] [place] [address] Dr. Aidan Mccain LEUKOCYTES SMALL Abnormal NEGATIVE [facility] Comment on above: Performed By: #### PRASANTH WHEELERRO #### [facility] [address] [place] [address] Dr. Aidan Mccain Nitrite Ql (U) Negative Normal NEGATIVE [facility] Comment on above: Performed By: #### PRASANTH WHEELERRO #### [facility] [address] [place] [address] Dr. Aidan Mccain pH (U) 6.0 [pH] Normal 5-9 [facility] Comment on above: Performed By: #### PRASANTH WHEELERRO #### [facility] [address] [place] [address] Dr. Aidan Mccain SPEC GRAVITY 1.020 Normal 1.005-<=1.025 [facility] Comment on above: Performed By: #### PRASANTH WHEELERRO #### [facility] [address] [place] [address] Dr. Aidan Mccain UA PROTEIN Negative Normal NEGATIVE/ TRACE [facility] Comment on above: Performed By: #### PRASANTH WHEELERRO #### [facility] Laboratory [address] [place] [address] Dr. Aidan Mccain UR MICRO IND INDICATED Normal [facility] Comment on above: Performed By: #### E RUR, UMICRO #### [facility] [address] [place] [address] Dr. Aidan Mccain Urobilinogen Qn (U) 0.2 {Sami'U}/dL Normal 0.2 - 1. 0 [facility] Comment on above: Performed By: #### E RUR, UMICRO #### [facility] [address] [place] [address] Dr. Aidan Mccain URINE MICROSCOPIC ONLYon BACTERIA TRACE Abnormal NONE SEEN [facility] Comment on above: Performed By: #### E RUR, UMICRO #### [facility] [address] [place] [address] Dr. Aidan Mccain Bacteria identified Cx Nom (U) INDICATED Normal [facility] Comment on above: Performed By: #### E RUR, UMICRO #### [facility] [address] [place] [address] Dr. Aidan Mccain CAST NONE SEEN Normal NONE SEEN [facility] Comment on above: Performed By: #### E RUR, UMICRO #### [facility] [address] [place] [address] Dr. Aidan Mccain Crystals LM Nom (Urine sed) NONE SEEN Normal NONE SEEN [facility] Comment on above: Performed By: #### Mariaelena RUR, UMICRO #### [facility] [address] [place] [address] Dr. Aidan Mccain Epithelial cells LM Ql (Urine sed) MANY Abnormal NONE SEEN /RARE [facility] Comment on above: Performed By: #### E RUR, UMICRO #### [facility] [address] [place] [address] Dr. Aidan Mccain MUCOUS NONE SEEN Normal NONE SEEN [facility] Comment on above: Performed By: #### E RUR, UMICRO #### [facility] [address] [place] [address] Dr. Aidan Mccain RBC 2-5 Abnormal 0-2 [facility] Comment on above: Performed By: #### E RUR, UMICRO #### [facility] [address] [place], [place] [address] Dr. Aidan Mccain WBC 5-10 Abnormal NONE SEEN [facility] Comment on above: Performed By: #### CARLOS ENRIQUE WHEELER #### [facility] [address] [place], [place] [address] Dr. Aidan Mccain MRI LSPINE WO CONon [...] SKYLER COLUNGA Date: 2022-01-23 17:37 Normal [facility] MAMM SCREEN 3D DAYANA CADon 01-20-2022 MG MAMM SCREEN 3D DAYANA CAD Patient: CATA NICHOLE Exam Date: 01/20/2022 : 1975 Gender:F Ordering : DR EDUARDO MAN M.D. Admission #: [id number] Family : EMILE BERGMAN . Order #: [id number] CLICK HERE TO VIEW EXAM RADIOLOGY REPORT [...] lupus cancer at age 70. LOCATION: [facility] BREAST COMPOSITION: Extremely dense, which lowers [...] Colunga M.D. on 01/20/2022 at 14:48 Normal [facility] XR CHEST 2 Von 12-12-2021 XR CHEST [...] by: JUNO CORTES Date: 2021-12-12 15:09 Normal [facility] Vital Signs Date Time Vital Sign Value Performing Clinician Facility 12-17-2023 10:55-0400 Diastolic blood pressure 66 mm[Hg] II Eduardo Man Work Phone: [facility] 12-17-2023 10:55-0400 Heart rate 71 /min II Eduardo Man Work Phone: [facility] 12-17-2023 10:55-0400 Respiratory rate 16 /min II Eduardo Man Work Phone: [facility] 12-17-2023 10:55-0400 SaO2% (BldA) [Mass fraction] 100 % II Eduardo Man Work Phone: [facility] 12-17-2023 10:55-0400 Systolic blood pressure 129 mm[Hg] II Eduardo Man Work Phone: [facility] 12-17-2023 08:26-0400 Body height 156.21 cm II Eduardo Man Work Phone: [facility] 12-17-2023 08:26-0400 Body weight 50 kg II Eduardo Man Work Phone: [facility] 11-25-2023 09:47-0400 Body height 157.48 cm [facility] 11-25-2023 09:47-0400 Body mass index (BMI) [Ratio] 18.6 kg/m2 [facility] 11-25-2023 09:47-0400 Body weight 46.26 kg [facility] 11-25-2023 09:47-0400 Diastolic blood pressure 77 mm[Hg] [facility] 11-25-2023 09:47-0400 Heart rate 84 /min [facility] 11-25-2023 09:47-0400 Systolic blood pressure 108 mm[Hg] [facility] 09-15-2023 08:39-0500 Body mass index (BMI) [Ratio] 20.6 kg/m2 Milagro Palomares [employer] Work Phone: [facility] 09-15-2023 08:39-0500 Body weight 49.44 kg Milagro Palomares [employer] Work Phone: [facility] 09-15-2023 08:39-0500 Diastolic blood pressure 82 mm[Hg] Milagro Palomares [employer] Work Phone: [facility] 09-15-2023 08:39-0500 Heart rate 89 /min Milagro Palomares [employer] Work Phone: [facility] 09-15-2023 08:39-0500 SaO2% (BldA) [Mass fraction] 98 % Milagro Palomares [employer] Work Phone: [facility] 09-15-2023 08:39-0500 Systolic blood pressure 118 mm[Hg] Milagro Palomares [employer] Work Phone: [facility] 07-08-2023 14:40-0500 Body height 157.48 cm Chapito Brush Other [facility] Other 07-08-2023 14:40-0500 Body mass index (BMI) [Ratio] 20.12 kg/m2 Chapito Brush Other [facility] Other 07-08-2023 14:40-0500 Body weight 49.9 kg Chapito Brush Other [facility] Other 06-29-2023 09:00-0500 Body height 157.48 cm Maurisio Jones Other [facility] Other 06-29-2023 09:00-0500 Body mass index (BMI) [Ratio] 21.03 kg/m2 Maurisio Jones Other [facility] Other 06-29-2023 09:00-0500 Body weight 52.16 kg Maurisio Jones Other [facility] Other 08-18-2022 15:40-0500 Body height 157.48 cm Chapito Brush Other [facility] Other 08-18-2022 15:40-0500 Body mass index (BMI) [Ratio] 20.99 kg/m2 Chapito Brush Other [facility] Other 08-18-2022 15:40-0500 Body weight 52.07 kg Chapito Brush Other [facility] Other 08-18-2022 15:40-0500 Diastolic blood pressure 82 mm[Hg] Chapito Brush Other [facility] Other 08-18-2022 15:40-0500 Systolic blood pressure 130 mm[Hg] Chapito Brush Other [facility] Other 06-02-2022 14:00-0400 Body height 157.48 cm Chapito Brush Other [facility] Other 06-02-2022 14:00-0400 Body mass index (BMI) [Ratio] 21.03 kg/m2 Chapito Brush Other [facility] Other 06-02-2022 14:00-0400 Body weight 52.16 kg Chapito Brush Other [facility] Other 04-28-2022 16:00-0400 Body height 157.48 cm Zeny Kaiser Other [facility] Other 04-28-2022 16:00-0400 Body mass index (BMI) [Ratio] 21.03 kg/m2 Zeny Kaiser Other [facility] Other 04-28-2022 16:00-0400 Body weight 52.16 kg Zeny Kaiser Other [facility] Other 03-10-2022 17:00-0400 Body height 157.48 cm Chapito Brush Other [facility] Other 03-10-2022 17:00-0400 Body mass index (BMI) [Ratio] 21.03 kg/m2 Chapito Brush Other [facility] Other 03-10-2022 17:00-0400 Body weight 52.16 kg Chapito Brush Other [facility] Other Encounters Encounter Date Encounter Type Care Provider Facility Start: 01-19-2024 End: 01-19-2024 ambulatory EMILE BERGMAN Not Available Start: 01-17-2024 End: 01-17-2024 ambulatory PAULINE JUAREZ Not Available Start: 01-06-2024 End: 01-06-2024 ambulatory ALICIA WAGONER Not Available Start: 01-04-2024 End: 01-04-2024 ambulatory EMILE REDO Not Available Start: 12-17-2023 End: 12-17-2023 ambulatory Imad Asaad Facility:[facility] Start: 12-17-2023 Non-patient / Non-visit II Eduardo Man Work Phone: [facility] Work Phone: Start: 12-17-2023 End: 12-17-2023 Admission to same day surgery center II Eduardo Man Work Phone: [facility] Work Phone: Start: 12-17-2023 End: 12-17-2023 ambulatory II Eduardo Man Work Phone: [facility] Work Phone: Start: 12-07-2023 End: 12-07-2023 ambulatory JACKLYN SMITHA Not Available Start: 12-02-2023 End: 12-02-2023 ambulatory EDUARDO MAN Not Available Start: 11-25-2023 End: 11-25-2023 ambulatory [facility] Work Phone: Start: 11-25-2023 End: 11-25-2023 Patient encounter procedure [facility] Work Phone: Start: 09-15-2023 Chart abstracting Milagro aguilar [employer] Work Phone: [facility] Start: 09-15-2023 End: 09-15-2023 Office outpatient visit 25 minutes Milagro Palomares [employer] Work Phone: [facility] Comment on above: Chronic idiopathic c onstipation (Primary Dx) Start: 09-15-2023 End: 09-15-2023 ambulatory MILAGRO PALOMARES Not Available Start: 09-02-2023 End: 09-02-2023 ambulatory Maurisio Jones Other [facility] Other Start: 09-02-2023 Office outpatient visit 25 minutes Maurisio Jones [facility] Start: 08-19-2023 End: 08-19-2023 ambulatory Maurisio Jones Facility:[facility] Start: 08-19-2023 End: 08-19-2023 ambulatory II Eduardo Man Work Phone: [facility] Work Phone: Start: 08-19-2023 End: 08-19-2023 Patient encounter procedure II Eduardo Man Work Phone: [facility] [address] Work Phone: Start: 08-16-2023 End: 08-16-2023 ambulatory MILAGRO PALOMARES Not Available Start: 08-04-2023 End: 08-04-2023 ambulatory MILAGRO PALOMARES Not Available Start: 07-15-2023 End: 07-15-2023 ambulatory Maurisio Jones Other [facility] Other Start: 07-15-2023 Office outpatient visit 25 minutes Maurisio Jones [facility] Start: 07-13-2023 End: 07-13-2023 ambulatory Zeny Kaiser Other [facility] Other Start: 07-13-2023 Office outpatient visit 25 minutes Zeny Kaiser [facility] Start: 07-08-2023 End: 07-08-2023 ambulatory Chapito Brush Other [facility] Other Start: 07-08-2023 Office outpatient visit 15 minutes Chapito Brush [facility] Start: 07-05-2023 (Procedure) Kalen Kaiser [facility] Start: 07-05-2023 End: 07-05-2023 ambulatory Zeny Kaiser Other [facility] Other Start: 06-29-2023 Office outpatient ne w 45 minutes Maurisio Jones [facility] Start: 06-29-2023 End: 06-29-2023 ambulatory Maurisio Jones [facility] Other Start: 06-29-2023 End: 06-29-2023 Patient encounter procedure II Eduardo Man Work Phone: [facility] Start: 06-17-2023 End: 06-17-2023 ambulatory Zeny Kyawallen Other [facility] Other Start: 06-17-2023 Office outpatient visit 25 minutes Zeny Kaiser [facility] Start: 05-06-2023 End: 05-06-2023 ambulatory Zeny Kyawallen Other [facility] Other Start: 05-06-2023 Office outpatient visit 15 minutes Zeny Kaiser [facility] Start: 04-23-2023 End: 04-23-2023 ambulatory Zeny Kaiser Facility:[facility] Start: 04-23-2023 End: 04-23-2023 ambulatory II Eduardo Man Work Phone: [facility] Work Phone: Start: 04-23-2023 End: 04-23-2023 Patient encounter procedure II Eduardo Man Work Phone: [facility] [place] Work Phone: Start: 04-14-2023 (Procedure) Short Zeny Cardallen [facility] Start: 04-14-2023 End: 04-14-2023 ambulatory Zeny Awilda Other [facility] Other Start: 04-01-2023 End: 04-01-2023 ambulatory Zeny Kaiser Other [facility] Other Start: 04-01-2023 Telephone encounter Zeny Méndez [facility] Start: 03-30-2023 End: 03-30-2023 ambulatory Zeny Kaiser Other [facility] Other Start: 03-30-2023 Office outpatient visit 25 minutes Zeny Kaiser [facility] Start: 03-15-2023 End: 03-15-2023 ambulatory Zeny Kaiser Other [facility] Other Start: 03-15-2023 Telephone encounter [facility] Start: 02-18-2023 End: 02-18-2023 ambulatory Zeny Kaiser Other [facility] Other Start: 02-18-2023 Office outpatient visit 15 minutes Zeny Kaiser [facility] Start: 01-28-2023 Office outpatient visit 25 minutes Zeny Kaiser [facility] Start: 01-28-2023 End: 01-28-2023 ambulatory II Eduardo Man Work Phone: [facility] Other Start: 01-28-2023 End: 01-28-2023 Patient encounter procedure II Eduardo Man Work Phone: [facility] Start: 01-06-2023 (Procedure) Short Zeny Awilda [facility] Start: 01-06-2023 End: 01-06-2023 ambulatory Zeny Kaiser Other [facility] Other Start: 12-21-2022 End: 12-21-2022 ambulatory Zeny Kaiser Other [facility] Other Start: 12-21-2022 Office outpatient visit 25 minutes Zeny Kaiser [facility] Start: 11-19-2022 End: 11-20-[address] PAULINE JUAREZ Facility:[facility] Start: 11-02-2022 End: 11-02-2022 ambulatory Zeny Kaiser Other [facility] Other Start: 11-02-2022 Telephone encounter [facility]y [facility] Start: 09-22-2022 End: 09-22-2022 Patient encounter procedure II Eduardo Man Work Phone: [facility] Start: 09-22-2022 End: 09-22-2022 ambulatory II Eduardo Man Work Phone: [facility] Work Phone: Start: 09-22-2022 Office outpatient visit 15 minutes Zeny Kaiser [facility] Start: 08-18-2022 End: 08-18-2022 ambulatory Chapito Brush Other [facility] Other Start: 08-18-2022 Office outpatient visit 15 minutes Chapito Brush [facility] Start: 08-11-2022 End: 08-11-2022 ambulatory Zeny Kyawallen Other [facility] Other Start: 08-11-2022 Office outpatient visit 15 minutes Zeny Kaiser [facility] Start: 07-20-2022 (Procedure) Short Zeny Kyawallen [facility] Start: 07-20-2022 End: 07-20-2022 ambulatory Zeny Kaiser Other [facility] Other Start: 07-06-2022 (Procedure) Short Zeny Cardallen [facility] Start: 07-06-2022 End: 07-06-2022 ambulatory Zeny Kaiser Other [facility] Other Start: 06-29-2022 End: 06-29-[address] PAULINE JUAREZ Facility:[facility] Start: 06-27-2022 End: 06-27-2022 ambulatory SERGIO Méndez REINECK Facility:[facility] Start: 06-22-2022 End: 06-22-2022 ambulatory Zeny Kaiser Other [facility] Other Start: 06-22-2022 Office outpatient visit 25 minutes Zeny Kaiser [facility] Start: 06-02-2022 End: 06-02-2022 ambulatory Chapito Brush Other [facility] Other Start: 06-02-2022 Office outpatient visit 15 minutes Chapito Brush [facility] Start: 05-25-2022 End: 05-25-2022 ambulatory Zeny Kyawallen Other [facility] Other Start: 05-25-2022 Telephone encounter Zeny WYATT [facility] Start: 04-30-2022 End: 04-30-2022 ambulatory Zeny Cardallen Other [facility] Other Start: 04-30-2022 Telephone encounter Zeny WYATT G [employer] Start: 04-28-2022 End: 04-28-2022 ambulatory Zeny Kyawallen Other [facility] Other Start: 04-28-2022 Office consultation new/estab patient 60 min Zeny Kaiser [facility] Start: 03-18-2022 End: 03-18-2022 ambulatory Chapito Brush Other [facility] Other Start: 03-18-2022 Telephone encounter Chapito Brush [facility] Start: 03-10-2022 End: 03-10-2022 Patient encounter procedure II Eduardo Man Work Phone: [facility] Start: 03-10-2022 End: 03-10-2022 ambulatory Chapito Brush Other [facility] Other Start: 03-10-2022 Office outpatient ne w 30 minutes Chapito Brush [facility] Start: 02-27-2022 End: 02-28-2022 ambulatory [...] Work Phone: Start: 01-20-2022 Mammography Milagro Palomares [employer] Work Phone: Start: 07-18-2020 Microscopic observation [Identifier] in Cervix by Cyto stain Milagro Palomares [employer] Work Phone: Start: 01-23-2019 Colonoscopy Milagro Palomares [employer] Work Phone: Start: 09-10-2015 H/O: hysterectomy History of partial hysterectomy Milagro Palomares [employer] Work Phone: Plan of Treatment Date Care Activity Detail Author Start: 01-23-2029 Screening for malign ant neoplasm of colon [facility] Start: 02-06-2024 Influenza vaccination Influenza Vacc ine (#1) [facility] Comment on above: Postponed from 04/09 (Patient Refused) Start: 12-17-2023 [facility] Start: 09-15-2023 End: 09-15-2023 Patient encounter procedure 09/15/2023 8:30 AM EST Office Visit [facility] [address] [place] [id number] Milagro Palomares NP [address] [place] [address] [facility] Start: 07-18-2023 Screening for malign ant neoplasm of cervix [facility] Start: 01-20-2023 Screening for malign ant neoplasm of breast Mammogram [facility] Start: 2007 Screening for malign ant neoplasm of cervix HPV/Cotest [facility] Start: 1975 Screening for malign ant neoplasm of colon [facility] Patient Education Colon polyps Hemorrhoids (DC) Know your Meds [facility] Work Phone: [facility] Immunizations Immunization Date Immunization Notes Care Provider Fa cilibianka 05-28-2021 COVID-19 mRNA, Comirnaty (Pfizer) OTILIA Man Work Phone: [facility] 09-18-2020 COVID-19 mRNA, Comirnaty (Pfizer) OTILIA Man Work Phone: [facility] 08-28-2020 COVID-19 mRNA, Comirnaty (Pfizer) OTILIA Man Work Phone: [facility] 06-22-2014 seasonal influenza, intradermal, preservative free Milagro Palomares [employer] Work Phone: [facility] 06-22-2014 influenza virus vaccine, unspecified formulation Milagro Palomares [employer] Work Phone: [facility] 01-28-1999 measles, mumps and rubella virus vaccine Milagro Palomares [employer] Work Phone: [facility] Payers Date Payer Category Payer Self-pay [id number] 2022 Unknown BCBS BCBS xxxxxx [id number] 2022-Present [phone] [address] [place] [address] [id number] 1975 Unknown [id number] 2.16.840.1.508905.3.579.2.5 93 1977 Unknown [id number] 2.16.840.1.662518.3.579.2.5 93 1977 Unknown [id number] 2.16.840.1.846101.3.579.2.5 93 1977 Unknown [id number] 2.16.840.1.020161.3.579.2.5 93 1977 Unknown [id number] 2.16.840.1.463801.3.579.2.5 93 1977 Unknown [id number] 2.16.840.1.184182.3.579.2.5 93 1977 Unknown [id number] 2.16.840.1.315363.3.579.2.5 93 1977 Unknown [id number] 2.16.840.1.281647.3.579.2.5 93 1977 Unknown [id number] 2.16.840.1.030909.3.579.2.5 93 1977 Unknown [id number] 2.16.840.1.976791.3.579.2.1 259 1977 Unknown [id number] 2.16.840.1.935083.3.579.2.1 259 1977 Unknown [id number] 2.16.840.1.374084.3.579.2.1 259 1977 Unknown [id number] 2.16.840.1.538730.3.579.2.1 259 1977 Unknown [id number] 2.16.840.1.565352.3.579.2.1 259 1977 Unknown [id number] 2.16.840.1.071672.3.579.2.1 259 1977 Unknown [id number] 2.16.840.1.561341.3.579.2.1 259 1977 Unknown [id number] 2.16.840.1.858542.3.579.2.1 259 1977 Unknown [id number] 2.16.840.1.502315.3.579.2.1 259 1977 Unknown [id number] 2.16.840.1.058399.3.579.2.1 259 1959 Blue Cross Blue Shield [id number] 2.16.840.1.274426.19 1959 Blue Cross Blue Shield [id number] 2.16.840.1.082923.19 1959 Unknown [id number] 2.16.840.1.608202.19 1959 Unknown [id number] 1959 Unknown [id number] Private Health Insurance [id number] Unknown [employer] [id number] 2.16.840.1.403884.3.579.2.5 31 Unknown [id number] 2.16.840.1.956493.3.579.2.5 31 Unknown [id number] 2.16.840.1.741340.3.579.2.5 31 Unknown [id number] 2.16.840.1.380268.3.579.2.5 31 Unknown [id number] 2.16.840.1.237252.3.579.2.5 31 Social History Date Type Detail Facility Start: 08-04-2023 End: 09-15-2023 [facility] Work Phone: Start: 01-23-2019 End: 12-17-2023 Tobacco smoking status NHIS Smoker (finding) [facility] Start: 1975 Sex Assigned At Female F [facility] Start: 04-22-2023 Tobacco smoking stat us [facility] Smokes tobacco daily [facility] History of tobacco use Cigarette Smoker [...] Sex Assigned At Not on file N [facility] Healthcare Goals Date Patient Goal Desired Activity /State Clinical Notes 06-27-2013 to 12-17-2023 Note Date & Type Note Facility 12-17-2023 Procedure note [facility] 11-25-2023 Evaluation note Authored November 25, [...] goal of 1 bowel movement a day. [facility] Work Phone: 1(980) 352-910202-07-2024 History of Present illness Narrative* Milagro Palomares, SEBASTIAN - 09/15/2023 8:30 AM EST Subjective Patient ID: Cata Leo [place] is a 48 y.o. female who presents [...] mg) before bedtime. 200 capsule 3 HYDROcodone-acetaminophen (Hobbs) 5-325 MG tablet Take 1 tablet by [...] POLYPECTOMY 2012 EGD 2012 w/ biopsy EMG 2014 [address] Tate EXPLORATORY LAPAROTOMY 11/[address] Bergman LUMBAR DISCECTOMY 2013 L5-S1 Dr Pagan OTHER SURGICAL HISTORY Bilateral Facet Blocks L4-S1 05/13/2020, 07/17/2020, 09/09/2020, 11/04/2020, 03/07/2021 OTHER SURGICAL HISTORY Bilateral Facet Injections L4-L5 08/19/2021, 12/09/2021 PARTIAL HYSTERECTOMY 2009 MT EDG TRANSORAL BIOPSY SINGLE/MULTIPLE 2012 MT INJECT TENDON SHEATH/LIGAMENT 06/2015 mid back and [...] No follow-ups on file. [id number] Evaluation note* Encounter Date Diagnosis Assessment Notes [...] and no personal patient information was compromised. [facility] Other 12-07-2023 Evaluation note* Encounter Date Diagnosis [...] Jul, Other chronic pain (ICD-10 - G89.29) [facility] Other 12-05-2023 Evaluation note* Encounter Date Diagnosis [...] note writ ten by Polo Andino MA, Machinery Dismantler. Edited and approved by Dr. Zeny Kaiser MD. [facility] Other 11-30-2023 Evaluation note* Encounter Date Diagnosis [...] Jun, Spondylolisthesis, lumbosacral region (ICD-10 - M43.17) [facility] Other 11-21-2023 Evaluation note* Encounter Date Diagnosis [...] Jun, Other chronic pain (ICD-10 - G89.29) [facility] Other 11-09-2023 Evaluation note* Encounter Date Diagnosis [...] note writ ten by Polo Andino MA, Machinery Dismantler. Edited and approved by Dr. Zeny Kaiser MD. [facility] Other 09-28-2023 Evaluation note* Encounter Date Diagnosis [...] note writ ten by Andreea Colon LPN, Machinery Dismantler. Edited and approved by Dr. Zeny Kaiser MD. [facility] [employer] Other 08-22-2023 Evaluation note* Encounter Date Diagnosis [...] note writ ten by Andreea Colon LPN, Machinery Dismantler. Edited and approved by Dr. Zeny Kaiser MD. [facility] [employer] Other 07-13-2023 Evaluation note* Encounter Date Diagnosis [...] note writ ten by Polo Andino MA, Machinery Dismantler. Edited and approved by Dr. Zeny Kaiser MD. [facility] Other 06-22-2023 Evaluation note* Encounter Date Diagnosis [...] note writ ten by Polo Andino MA, Machinery Dismantler. Edited and approved by Dr. Zeny Kaiser MD. [facility] Other 05-15-2023 Evaluation note* Encounter Date Diagnosis [...] note writ ten by Andreea Colon LPN, Machinery Dismantler. Edited and approved by Dr. Zeny Kaiser MD. [facility] [employer] Other 02-14-2023 Evaluation note* Encounter Date Diagnosis [...] note writ ten by Andreea Colon LPN, Machinery Dismantler. Edited and approved by Dr. Zeny Kaiser MD. [facility] Other 01-10-2023 Evaluation note* Encounter Date Diagnosis [...] Aug, Spondylolisthesis, lumbosacral region (ICD-10 - M43.17) [facility] Other 01-03-2023 Evaluation note* Encounter Date Diagnosis [...] note writ ten by Andreea Colon LPN, Machinery Dismantler. Edited and approved by Dr. Zeny Kaiser MD. [facility] Other 11-14-2022 Evaluation note* Encounter Date Diagnosis [...] note writ ten by Andreea Colon LPN, Machinery Dismantler. Edited and approved by Dr. Zeny Kaiser MD. [facility] Other 10-25-2022 Evaluation note* Encounter Date Diagnosis [...] and sacroiliac pain and takes Valium and Hobbs chronically as well as gabapentin 400 mg p.o. twice daily. Her back is feeling better after some injections that she got. I recommend that she continues to get these injections and that she at least taper down her gabapentin to half the amount. She then needs to begin working on tapering down Hobbs and Valium. At this point she is not a good operative candidate with this medication mix. I will see her back at the beginning of the year to see how she is doing May, Spondylolisthesis, lumbosacral region (ICD-10 - M43.17) [facility] Other 09-20-2022 Evaluation note* Encounter Date Diagnosis [...] note writ ten by Andreea Colon LPN, Machinery Dismantler. Edited and approved by Dr. Zeny Kaiser [...] negative findings were considered in medical decision-making. [employer] Other 08-02-2022 Evaluation note* Encounter Date Diagnosis [...] with sciatica, left side (ICD-10 - M54.42) [employer] Other 01-04-2022 NotePROCEDURE: [employer]ight System[employer]Drive Power VCT 64, 5.0 mm slice axial images [...] signed by [place] on 08/12/2021 1010[facility]11-19-2013 History general Narrative - Reported* Type Description Date Medical History asthma Medical History allergic rhinitis Medical History 06/27/13 Capsule endoscopy-rapid transit Medical History 06/07/13 Colonoscopy-tubular jazmin noma Medical History 04/28/13 EGD/Ramsay-hiatal hernia, no acid reflux Surgical History Partial hysterectomy Surgical History blood transfusion Surgical History Back Surgery 2014 Hospitalization History See above [employer] Other evalorjbst noteNo InformationNortFirst [facility] [employer] Other evaluation noteNo assessment information available [facility] Work Phone: Evaluation note* Diagnosis Chronic idiopathic constipation- Primary Unspecified constipation documented in [facility] encounter [facility] Healthcare[facility]* Diagnosis Onset Date Resolution Status Constipation acute [facility] Work Phone: Hospital Discharge instructions Additional Instructions [...] months -Follow up with PCP. -Office number [phone]. [facility] Work Phone: Reason for referral (narrative)* Consultation (Routine) - Authorized Specialty Diagnoses / Procedures Referred By Contac t Referred To Contact Gastroenterology Diagnoses Chronic idiopathic constipation Procedures [place] OFFICE/OUTPATIENT [facility] 60 MINUTES Milagro Palomares NP [address] [facility] [address] [place] [address] Ankur Benavides MD [address] [place] [address] [address] [place] [address] Referral ID Status Reason Start Date Expiration Date Visits Requested Visits Authorized [id number] Authorized Specialty Services Required 09/15/2023 03/13/2024 1 1 [facility] Healthcare Summary Purpose Family History No [...] Left lumbar radiculo prema (M54.16) Referral Organization [facility] Referring Provider First Name Chapito Referring Provider Last Name Gonsalo Referring Provider Specialty Neurologica l Surgery Referred Organization [facility] Referred Address ,[place], [place],[address] Referred Provider Specialty Physical The rapist Referral Priority Routine Reason DAYANA shoulder pa in, please evaluate Diagnosis 1 Shoulder pain (M25.5 19) Referral Organization [facility] Referring Provider First Name Zeny Referring Provider Last Name Awilda Referring Provider Specialty Pain Medici ne Referred Organization [facility] Referred Provider Maurisio Jones Referred Address [address] [place], [place],[address] Referred Provider Specialty Orthopedic S urgery Referral [...] section and content) DATE CREATED AUTHOR 08/13/2021 [facility] DATE CREATED AUTHOR AUTHOR'S ORGANIZ ATION 11/20/2022 [facility] DATE CREATED AUTHOR AUTHOR'S ORGANIZ ATION 12/31/2023 [facility] DATE CREATED AUTHOR AUTHOR'S ORGANIZ ATION 01/20/2024 [facility] EPIC REASON FOR VISIT (unrecogniz [...] Active Maurisio Jones DO Attending Provider Active Education Intern Relationship Specialty Start Date End Date Eduardo Man MD [address] [facility] [address] [place] [address] PCP - General Internal Medicine 01/04/23 Eduardo Man MD [address] [facility] [address] [place] [address] PCP - [place] [employer] 04/09/23 Education Intern Relationship Specialty Start Date End Date Eduardo Man MD [address] [place] [address] [place] [address] PCP - General Internal Medicine 01/04/23 Eduardo Man MD [address] [facility] [address] [place] [address] PCP - [place] [employer] 04/09/23 Team Status: Inactive Member Role [...] BE BASED ON THE PRIMARY CLINICAL RECORDS. [employer] [facility]. provides no warranty or guarantee of the accuracy or completeness of information in this document.
--- NOTE | 2024-01-28 09:23 | ECG_ITS ---
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
== END 2024-01-28 09:17 | disposition home or self-care (01) ==
LOC: PST 09:17
PROVIDERS: PCP Internal Medicine; Visit Provider Obstetrics & Gynecology
DX: Z01.810 Encounter for preprocedural cardiovascular examination (principal); R10.2 Pelvic and perineal pain
CPT/HCPCS: 93005

== ENCOUNTER 2024-02-11 07:34 | Day surgery (SDC) | payer BC, SELFPAY ==
[2024-01-28 09:29] VITALS: BP 102/74; PULSE 75; TEMP 36.4; O2SAT 97; BMI 19.9
[2024-02-11] VITALS (14 sets, daily range): BP systolic 109–151; BP diastolic 68–98; PULSE 71–95; TEMP 36.1–36.2; O2SAT 95–100; BMI 19.9
--- OUTSIDE RECORDS SUMMARY | 2024-02-11 07:37 | XMS_ITS | CCD ---
Author Organization [facility]ini[facility] Care Team Providers Care Personal Injury Law Specialist Name Role Phone Chapito Brush Unavailable OTILIA Man Primary Care Provider [phone] MD Chapito Brush Attending Provider [phone] Zeny Kaiser Unavailable OTILIA Man Primary Care [...] Unavailable DONOVAN, DR KABA Primary Care [facility] Referring Unavailable ALICIA WAGONER Attending Unavailable ALICIA WAGONER Admitting Unavailable DONOVAN, DR KABA Primary Care Unavailable ALICIA WAGONER Admitting Unavailable ALICIA WAGONER Attending Unavailable ZIJOANNE, DR SKYLER Hurley Consulting Unavailable DONOVAN, DR KABA Primary Care Unavailable ALICIA WAGONER Consulting Unavailable DONOVAN, DR KABA Consulting Unavailable DONOVAN, DR KABA Attending Unavailable DONOVAN, DR KABA Admitting Unavailable DONOVAN, DR KABA Primary Care Unavailable EDITH ., DR BAPTISTE Consulting Unavailable LEIGHA, DR SKYLER Hurley Consulting Unavailable Man, II Eduardo Primary Care Provider [phone] MD Zeny Kaiser Attending Provider Man, II Eduardo Primary Care Provider [phone] MD Zeny Kaiser Attending Provider [phone] Maurisio Jones Unavailable Man, II Eduardo Primary Care Provider DO Maurisio Jones Attending Provider [phone] Eduardo Man MD Primary Care Provider Eduardo Man MD Unavailable Donovan, II Eduardo Primary Care Provider MD Martita Pandey Attending Provider [phone] Zeny Kaiser Admitting Unavailable Zeny Kaiser Attending Unavailable Eduardo Man Primary Care Unavailable Maurisio Jones Attending Unavailable Donovan, Eduardo Primary Care Unavailable Michael Jonesin Elizabeth Admitting Unavailable Maurisio Jones Attending Unavailable Donovan, Eduardo Primary Care Unavailable Michael Jonesin Elizabeth Admitting Unavailable Asanabil, Martita Admitting Unavailable Dannie, Martita Attending Unavailable Eduardo Man Primary Care Unavailable Zeny Kaiser Admitting Unavailable Zeny Kaiser Attending Unavailable Eduardo Man Primary Care Unavailable MILAGRO PALOMARES Attending Unavailable MILAGRO PALOMARES [...] source) egg extract Drug Allergy 09-17-2014 [facility] Repository (1 source) Papaveretum Drug Allergy 09-17-2014 [facility] Repository (1 source) venlafaxine Drug Allergy 09-17-2014 [facility] Repository (1 source) Wheat preparation Drug Allergy 09-17-2014 [facility] Repository (3 sources) venlafaxine Drug Allergy 08-15-2021 [facility] Medications Current Medications Medication Drug Class(es) Dates Sig (Normalized) Sig (Original) acetaminophen 325 mg / HYDROcodone bitartrate 5 mg oral tablet (20 sources) Opioid Agonist Start: 08-30-2023 take 1 tablet by mouth every six hours HYDROcodone-acetamin ophen ([place]) 5-325 MG tablet Indications: Degeneration of lumbar [...] take 1 puff(s) by inhalation twice daily [id number] actuat albuterol 0.09 mg/actuat metered dose inhaler (18 sources) beta2-Adrenergic Agonist Start: take 2 puff(s) [...] as needed aspirin 81 mg chewable tablet (2 sources) Platelet Aggregation Inhibitor, Nonsteroidal Anti-inflammatory Drug Start: [...] Vitamin D cholecalciferol (Vitamin D-3) 50 MCG (1999) capsule 1 capsule 1 (one) time each [...] 3 05/19/2023 Active take 1 capsule by [facility] every twenty-four hours Gabapentin 400 MG 1 capsule Orally Once a day Active linaclotide 0.29 mg oral capsule (6 sources) Guanylate Cyclase-C Agonist Start: 11-25-2023 take [...] meclizine hydrochloride 25 m g oral tablet (13 sources) Antiemetic Start: 12-03-2023 Meclizine Acti ve 25 MG PO 2-3 TIMES PER DAY December 03, 2023 12:00am Start: 02-26-2023 take 1 tablet by keiko every six hours for dizziness meclizine (Antivert) [...] 2023 9:51am montelukast 10 mg oral tablet (5 sources) Leukotriene Receptor Antagonist Start: 12-03-2023 take [...] morning. 0 Active Multivitamin (Daily Multi-Vitamin) tablet (2 sources) Start: 12-03-19 take 1 tablet by mouth [...] Start: 02-15-2023 take 1 capsule by mo [facility] once daily omeprazole (PriLOSEC) [address] capsule Indications: Gastro-esophageal reflux disease without esophagitis TAKE 1 CAPSULE BY MOUTH EVERY DAY 90 capsule 3 02/15/2023 Active Omeprazole Not-T aking ondansetron 4 mg disintegrating oral tablet (11 sources) Serotonin-3 Receptor Antagonist Start: 05-24-2023 take 1 tablet by mouth every six hours for nausea ondansetron ODT (Zofran-ODT) 4 MG disintegrating tablet Indications: Chronic idiopathic constipation Take 1 tablet (4 mg) by mouth every 6 (six) hours if needed for nausea or vomiting. 20 tablet 5 05/24/2023 Active Start: 01-20-2019 End: 11-25-2023 Ondansetron Discontinued 4 M G JOHANNU Q8H January 20, 2019 12:00am November 25, [...] Sig (Original) baclofen 10 mg oral tablet (8 sources) gamma-Aminobutyric Acid-ergic Agonist Start: 01-20-2019 End: 11-25-2023 take 5 mg by mouth three times daily Baclofen Discontinued 5 MG PO Three times daily January 20, 2019 12:00am November 25, 2023 9:51am plecanatide 3 mg oral tablet (11 sources) Start: 01-20-2019 End: 03-10-2024 take 3 [...] Resolved: 3 04-01-2023 Episodic Other gastrointestinal disorders (3 sources) Constipation, unspecified; Translations: [Constipation, unspecified] 11-25-2023 Episodic Other gastrointestinal disorders (1 source) Other constipation; Translations: [Other constipation] Onset: 4 Episodic Other inflammatory condition of skin (3 sources) Pityriasis rosea; Translations: [Pityriasis rosea] Onset: 1 01-07-2023 Chronic Other nervous system disorders (20 sources) Chronic pain; Translations: [Other chronic pain] Onset: 7 01-07-2023 Chronic Other nervous system disorders (17 sources) Other chronic pain; Translations: [Other chronic pain] Onset: 2 Resolved: 2 Chronic Other nervous [...] Onset: Episodic Other aftercare (1 source) Other [facility] (current) drug therapy; Translations: [OTH DETENTION CURRENT DRUG THERAPY] Onset: Episodic Other and [...] Translations: [Disorder of adrenal gland, unspecified] Onset: 019 Resolve d: 05-24-2023 Chronic Other female genital [...] hip; Translations: [PAIN IN RIGHT HIP] Onset: 022 Episodic Other non-traumatic joint disorders (1 source) [...] specified body structures] Onset: 021 Resolve d: 05-24-2023 Chronic Other screening for [...] Test Name Value Interpretation Reference Range Facility [facility] 12-17-2023 L Specimen: [id number] Received: 12/17/23 Status: TROY [place] Num: [id number] Spec Type: Surgical Subm Dr: Martita Pandey MD Tissues: A Colon Biopsy (ASCENDING COLON POLYP) Procedures: HE/2, Gross/Micro L4 Age/ Patient Sex Location Account Attending Physician Dayanara,Cata Leo 48/F [id number] Martita Pandey MD SPEC NUM: [id number] RECD: 12/17/23 STATUS: [place] NUM: [id number] ZACH: 12/17/23 [facility] DR: Martita Pandey MD ENTERED: 12/17/23 [facility] DR: SPEC TYPE: Surgical DEPT: S [...] Clinical history: Constipation, abdominal pain CPT Codes 36838 -------- -------- Specimen: [id number] Received: 12/17/23 Status: TROY [place] Num: [id number] Spec Type: Surgical Subm Dr: Matrita Pandey MD Tissues: A Colon Biopsy (ASCENDING COLON POLYP) Procedures: HE/2, Gross/Micro L4 -------- Patient: Cata Nichole [id number] (Continued) -------- Signed (signature on file) Isai Sampson MD 12/20/23 1414 Normal [facility] MR shoulder RT wo conon 08-09 MR shoulder RT wo con [facility] [place] [place] [address] MRI Report Signed Patient: Cata Nichole MR#: [id number] : 1975 Acct:[id number] Age/Sex: 48 / F ADM Date: 08/19/23 Loc: [facility] Room: Type: [facility] Attending Dr: Maurisio Jones DO Copies to: [...] Martinez Jr., D.O.08/19/2023 2:20 PM Dictation Location: [place] [address] Transcribed By: [facility] 08/19/23 1420 Dictated By: Tin Martinez Jr, DO 08/19/23 1415 Signed By: 08/19/23 1420 Normal [facility] CT ABDOMEN PELVIS [...] Isovue-300, 100 mL.. Comparison: CT abdomen pelvis, [facility], November 25, 2018.. Findings: Lungs: Lung bases [...] XR shoulder BI min 2V [facility] Main [place] [address] [place] [address] XRay Report Signed Patient: Cata Nichole MR#: [id number] : 1975 Acct:[id number] Age/Sex: 48 / F ADM Date: 06/29/23 Loc: [facility] Room: Type: [facility] Attending Dr: Maurisio Jones DO Copies to: [...] Donald Jones M.D.06/29/2023 12:16 PM Dictation Location: RADIO--12 Transcribed By: [facility] 06/29/23 1216 Dictated By: Donald Jones II, MD 06/29/231212 Signed By: 06/29/231215 Normal [facility] XR shoulder BI min 2V [facility] [employer] Other XR shoulder BI min 2V [facility] [employer] Other XR shoulder BI min 2V [address] [place] [address] [employer] Other XR shoulder BI [place] 2[place] [address] [employer] Other XR shoulder BI min 2V XRay Report [employer] Other XR shoulder BI min 2V Signed [employer] Other XR shoulder BI min 2V Patient: Cata Nichole MR#: [id number] [employer] Other XR shoulder BI min 2V 2779 [employer] Other XR shoulder BI min 2V : 1975 Acct:[id number] [employer] Other XR shoulder BI min 2V Age/Sex: 48 / F ADM Date: 06/29/23 [employer] Other XR shoulder BI min 2V Loc: [facility] Room: Type: [facility] [employer] Other XR shoulder BI min 2V Attending Dr: Maurisio Jones DO [employer] Other XR shoulder BI min 2V Copies to: Maurisio Jones DO [employer] Other XR shoulder BI min 2V Ordering Provider: Maurisio Jones DO [employer] Other XR shoulder BI min 2V Date of Service: 06/29/23 [employer] Other XR shoulder BI min 2V XR/XR shoulder BI min 2V: Pain in right shoulder;Pain in left shoulder [employer] Other XR shoulder BI min 2V XR shoulder BI min 2V 06/29/2023 9:17 AM [employer] Other XR shoulder BI min 2V SIGNS AND SYMPTOMS: Bilateral shoulder pain [employer] Other XR shoulder BI min 2V PROTOCOL: Frontal, Grashey, scapular Y, and axillary views of the bilateral shoulders [employer] Other XR shoulder BI min 2V COMPARISON: None [employer] Other XR shoulder BI min 2V FINDINGS: [employer] Other XR shoulder BI min 2V The acromioclavicular joint and glenohumeral joint are preserved bilaterally. There is no fracture [employer] Other XR shoulder BI min 2V or dislocation. The visualized right and left hemithorax are grossly intact. [employer] Other XR shoulder BI min 2V XR/XR shoulder BI min 2V [employer] Other XR shoulder BI min 2V IMPRESSION: [employer] Other XR shoulder BI min 2V No acute bony injury or significant degenerative change. [employer] Other XR shoulder BI min 2V Impression dictated by: Donald Jones M.D.06/29/2023 12:16 PM [employer] Other XR shoulder BI min 2V Dictation Location: [place] [address] [employer] Other XR shoulder BI min 2V Transcribed By: COURTNEY 06/29/23 1216 [employer] Other XR shoulder BI min 2V Dictated By: Donald Jones II, MD 06/29/23 [facility] [employer] Other XR shoulder BI min 2V Signed By: [employer] Other XR shoulder BI min 2V 06/29/23 1216 [employer] Other XR pre/post mri xrayon 04-23 XR pre/post mri xray [facility] [place] [address] [place] [address] MRI Report Signed Patient: Cata Nichole MR#: [id number] : 1975 Acct:[id number] Age/Sex: 47 / F ADM Date: 04/23/23 Loc: MR Room: Type: [facility] Attending Dr: Zeny Kaiser MD Copies to: Zeny Kaiser MD Ordering Provider: Zeny Kaiser MD Date of Service: 04/23/23 MR/MR cervical spine wo con: further evaluation;Other spondylosis with radiculopathy, cer ([id number]) XR/XR pre/post mri xray: OBLIQUE ONLY MR [...] Donald Jones M.D.04/23/2023 3:50 PM Dictation Location: [place] [address] Transcribed By: [facility] 04/23/23 1555 Dictated By: Donald Jones II, MD 04/23/23 5186 Signed By: 04/23/23 5967 Normal [facility] XR cerv spine AP/LAT/FLX/EXT on 01-28-2023 XR cerv spine AP/LAT/FLX/EXT [facility] [employer] Other XR cerv spine AP/LAT/FLX/EXT [facility] [employer] Other XR cerv spine AP/LAT/FLX/EXT [address] [place] [address] [employer] Other XR cerv spine AP/LAT/FLX/[place] [address] [employer] Other XR cerv spine AP/LAT/FLX/EXT XRay Report [employer] Other XR cerv spine AP/LAT/FLX/EXT Signed [employer] Other XR cerv spine AP/LAT/FLX/EXT Patient: Cata Nichole MR#: [id number] [employer] Other XR cerv spine AP/LAT/FLX/EXT 2779 [employer] Other XR cerv spine AP/LAT/FLX/EXT : 1975 Acct:[id number] [employer] Other XR cerv spine AP/LAT/FLX/EXT Age/Sex: 47 / F ADM Date: 01/28/23 [employer] Other XR cerv spine AP/LAT/FLX/EXT Loc: [facility] Room: Type: [facility] [employer] Other XR cerv spine AP/LAT/FLX/EXT Attending Dr: Zeny Kasier MD [employer] Other XR cerv spine AP/LAT/FLX/EXT Copies to: Zeny Kaiser MD [employer] Other XR cerv spine AP/LAT/FLX/EXT Ordering Provider: Zeny Kaiser MD [employer] Other XR cerv spine AP/LAT/FLX/EXT Date of Service: 01/28/23 [employer] Other XR cerv spine AP/LAT/FLX/EXT XR/XR cerv spine AP/LAT/FLX/EXT: PAIN [employer] Other XR cerv spine AP/LAT/FLX/EXT CERVICAL SPINE WITH FLEXION-EXTENSION VIEWS - 4 views [employer] Other XR cerv spine AP/LAT/FLX/EXT COMPARISON: None [employer] Other XR cerv spine AP/LAT/FLX/EXT CLINICAL DATA: Neck pain radiating to the right eye and down the left hand. No injury. [employer] Other XR cerv spine AP/LAT/FLX/EXT AP as well as lateral views in neutral, flexion and extension were obtained. There are no acute [employer] Other XR cerv spine AP/LAT/FLX/EXT fractures. No displacement or instability is seen. There is mild disc space narrowing at C6-7 [employer] Other XR cerv spine AP/LAT/FLX/EXT along with endplate spurring. There is additional minor plate spurring and facet sclerosis. No [employer] Other XR cerv spine AP/LAT/FLX/EXT prevertebral soft tissue swelling is identified. [employer] Other XR cerv spine AP/LAT/FLX/EXT XR/XR cerv spine AP/LAT/FLX/EXT [employer] Other XR cerv spine AP/LAT/FLX/EXT IMPRESSION: [employer] Other XR cerv spine AP/LAT/FLX/EXT MILD DEGENERATIVE CHANGE , PRIMARILY AT THE C6-7 LEVEL. [employer] Other XR cerv spine AP/LAT/FLX/EXT Impression dictated by: Pauline Fernandes M.D.01/28/2023 10:52 AM [employer] Other XR cerv spine AP/LAT/FLX/EXT Dictation Location: [place] [address] [employer] Other XR cerv spine AP/LAT/FLX/EXT Transcribed By: COURTNEY 01/28/23 1052 [employer] Other XR cerv spine AP/LAT/FLX/EXT Dictated By: Pauline Fernandes MD 01/28/23 1049 [employer] Other XR cerv spine AP/LAT/FLX/EXT Signed By: [employer] Other XR cerv spine AP/LAT/FLX/EXT 01/28/23 1058 [employer] Other XR cerv spine AP/LAT/FLX/EXT [facility] [place] [address] [place] [address] XRay Report Signed Patient: Cata Nichole MR#: [id number] : 1975 Acct:[id number] Age/Sex: 47 / F ADM Date: 01/28/23 Loc: [facility] Room: Type: [facility] Attending Dr: Zeny Kaiser MD Copies to: [...] Pauline Fernandes M.D.01/28/2023 10:52 AM Dictation Location: [place] [address] Transcribed By: [facility] 01/28/23 1052 Dictated By: Pauline Fernandes MD 01/28/23 1049 Signed By: 01/28/23 1052 Normal [facility] XR CHEST 2 [...] by: JAZMINE LIAO Date: 2022-11-19 17:19 Normal [place] XR shoulder RT min 2V*on XR shoulder RT min 2V* [facility] [employer] Other XR shoulder RT min 2V* [facility] [employer] Other XR shoulder RT min 2V* [facility] [employer] Other XR shoulder RT min 2V* [place] [address] [employer] Other XR shoulder RT min 2V* XRay Report [employer] Other XR shoulder RT min 2V* Signed [employer] Other XR shoulder RT min 2V* Patient: Cata Nichole MR#: [id number] [employer] Other XR shoulder RT min 2V* 2779 [employer] Other XR shoulder RT min 2V* : 1975 Acct:[id number] [employer] Other XR shoulder RT min 2V* Age/Sex: 47 / F ADM Date: 09/22/22 [employer] Other XR shoulder RT min 2V* Loc: [facility] Room: Type: [facility] [employer] Other XR shoulder RT min 2V* Attending Dr: Zeny Kaiser MD [employer] Other XR shoulder RT min 2V* Copies to: Zeny Kaiser MD [employer] Other XR shoulder RT min 2V* Ordering Provider: Zeny Kaiser MD [employer] Other XR shoulder RT min 2V* Date of Service: 09/22/22 [employer] Other XR shoulder RT min 2V* XR/XR shoulder RT min 2V*: Pain in right shoulder [employer] Other XR shoulder RT min 2V* RIGHT SHOULDER - - 4 views [employer] Other XR shoulder RT min 2V* CLINICAL HISTORY: Right anterolateral shoulder pain for one month. [employer] Other XR shoulder RT min 2V* COMPARISON: None [employer] Other XR shoulder RT min 2V* FINDINGS: [employer] Other XR shoulder RT min 2V* Minimal degenerative change of the AC joint without acute bony process. [employer] Other XR shoulder RT min 2V* XR/XR shoulder RT min 2V* [employer] Other XR shoulder RT min 2V* IMPRESSION: [employer] Other XR shoulder RT min 2V* MINIMAL DEGENERATIVE CHANGE INVOLVING THE RIGHT SHOULDER WITHOUT ACUTE BONY PROCESS. [employer] Other XR shoulder RT min 2V* Impression dictated by: Tin Martinez Jr., D.OKayla09/22/2022 4:40 PM [employer] Other XR shoulder RT min 2V* Dictation Location: [place] [address] [employer] Other XR shoulder RT min 2V* Transcribed By: PWS 09/22/22 [facility] [employer] Other XR shoulder RT min 2V* Dictated By: Tin Martinez Jr, DO 09/22/22 1639 [employer] Other XR shoulder RT min 2V* Signed By: [employer] Other XR shoulder RT min 2V* 09/22/22 [facility] [employer] Other RESPIRATORY PANEL PLUSon Adenovirus Not detected Normal NOT DETECTED [facility] Comment on above: Performed By: #### R SPLUS #### [facility] [address] [place] [address] [address] Aidan Bolanos Parapertusis Not detected Normal NOT DETECTED [facility] Comment on above: Performed By: #### R SPLUS #### [facility] [address] [place] [address] [address] Aidan Bolanos Pertussis Not detected Normal NOT DETECTED [facility] Comment on above: Performed By: #### R SPLUS #### [facility] [address] [place] [address] Dr. Aidan Mccain Chlamydia Pneumoniae Not detected Normal NOT DETECTED [facility] Comment on above: Performed By: #### R SPLUS #### [facility] [address] [place] [address] Dr. Aidan Mccain Coronavirus 229E Not detected Normal NOT DETECTED [facility] Comment on above: Performed By: #### R SPLUS #### [facility] [address] [place] [address] Dr. Aidan Mccain Coronavirus HKU1 Not detected Normal NOT DETECTED [facility] Comment on above: Performed By: #### R SPLUS #### [facility] [address] [place] [address] Dr. Aidan Mccain Coronavirus NL63 Not detected Normal NOT DETECTED [facility] Comment on above: Performed By: #### R SPLUS #### [facility] [address] [place] [address] Dr. Aidan Mccain Coronavirus OC43 Not detected Normal NOT DETECTED [facility] Comment on above: Performed By: #### R SPLUS #### [facility] [address] [place] [address] Dr. Aidan Mccain Influenza A H1 2009 Not detected Normal NOT DETECTED [facility] Comment on above: Performed By: #### R SPLUS #### [facility] [address] [place] [address] Dr. Aidan Mccain Influenza A H3 Not detected Normal NOT DETECTED [facility] Comment on above: Performed By: #### R SPLUS #### [facility] [address] [place] [address] Dr. Aidan Mccain Influenza B Not detected Normal NOT DETECTED [facility] Comment on above: Performed By: #### R SPLUS #### [facility] [address] [place] [address] Dr. Aidan Mccain Metapneumovirus Not detected Normal NOT DETECTED [facility] Comment on above: Performed By: #### R SPLUS #### [facility] [address] [place] [address] Dr. Aidan Mccain Mycoplas. Pneumoniae Not detected Normal NOT DETECTED [facility] Comment on above: Performed By: #### R SPLUS #### [facility] [address] [place] [address] Dr. Aidan Mccain Parainfluenza 1 Not detected Normal NOT DETECTED [facility] Comment on above: Performed By: #### R SPLUS #### [facility] [address] [place] [address] Dr. Aidan Mccain Parainfluenza 2 Not detected Normal NOT DETECTED [facility] Comment on above: Performed By: #### R SPLUS #### [facility] [address] [place] [address] Dr. Aidan Mccain Parainfluenza 3 Not detected Normal NOT DETECTED [facility] Comment on above: Performed By: #### R SPLUS #### [facility] [address] [place] [address] Dr. Aidan Mccain Parainfluenza 4 Not detected Normal NOT DETECTED [facility] Comment on above: Performed By: #### R SPLUS #### [facility] [address] [place] [address] Dr. Aidan Mccain Rhino/Enterovirus Not detected Normal NOT DETECTED [facility] Comment on above: Performed By: #### R SPLUS #### [facility] [address] [place] [address] Dr. Aidan Mccain RP2 Header 1 RESPIRATORY PANEL: VIRUSES Normal [facility] Comment on above: Performed By: #### R SPLUS #### [facility] [address] [place] [address] Dr. Aidan Mccain RP2 Header 2 RESPIRATORY PANEL: BACTERIA Normal [place] Comment on above: Performed By: #### R SPLUS #### [facility] [address] [place] [address] Dr. Aidan Mccain RSV Not detected Normal NOT DETECTED [facility] Comment on above: Performed By: #### R SPLUS #### [facility] [address] [place] [address] Dr. Aidan Mccain SARS-CoV-2 (COVID-19) RNA ELEUTERIO+probe Ql (Unsp spec) Not detected Normal NOT DETECTED [facility] Comment on above: Performed By: #### R SPLUS #### [facility] [address] [place] [address] Dr. Aidan Mccain XR LSPINE 2_3 VIEWSon [...] JAZMINE HARVEY Date: 2022-06-27 18:37 Normal [facility] CULTURE URINEon 02-22-2022 CULTURE URINE Culture Observations : HEAVY GROWTH OF MIXED GENITAL [place]. NO POTENTIAL PATHOGENS SEEN. Normal [facility] Comment on above: Performed By: #### U RCX #### [facility] [address] [place] [address] Dr. Aidan Mccain ER URINE PROFILEon 2 Bilirubin Ql (U) Negative Normal NEGATIVE [facility] Comment on above: Performed By: #### Mariaelena CHUNG UMICRO #### [facility] [address] [place] [address] Dr. Aidan Mccain Clarity (U) CLEAR Normal CLEAR The [facility] Comment on above: Performed By: #### E RUXavi UMICRO #### [facility] [address] [place] [address] Dr. Aidan Mccain Color (U) LT. YELLOW Normal YELLOW The [facility] Comment on above: Performed By: #### E SHELDON UMICRO #### [facility] [address] [place] [address] Dr. Aidan Mccain ERUAHD A micrscopic examination will be performed if indicated. Normal The [facility] Comment on above: Performed By: #### E RUXavi UMICRO #### [facility] [address] [place] [address] Dr. Aidan Mccain Glucose Ql (U) Negative Normal NEGATIVE [facility] Comment on above: Performed By: #### Mariaelena CHUNG UMICRO #### [facility] [address] [address] [address] Aidan Mccain Hemoglobin Ql (U) Negative Normal NEGATIVE The [facility] Comment on above: Performed By: #### RIA WHEELERICRO #### [facility] [address] [place] [address] Dr. Aidan Mccain Ketones Ql (U) Negative Normal NEGATIVE [facility] Comment on above: Performed By: #### PRASANTH WHEELERRO #### [facility] [address] [place] [address] Dr. Aidan Mccain LEUKOCYTES SMALL Abnormal NEGATIVE [place] Comment on above: Performed By: #### PRASANTH WHEELERRO #### [facility] [address] [place] [address] Dr. Aidan Mccain Nitrite Ql (U) Negative Normal NEGATIVE [facility] Comment on above: Performed By: #### PRASANTH WHEELERRO #### [facility] [address] [place] [address] Dr. Aidan Mccain pH (U) 6.0 [pH] Normal 5-9 [place] Comment on above: Performed By: #### PRASANTH WHEELERRO #### [facility] [address] [place] [address] Dr. Aidan Mccain SPEC GRAVITY 1.020 Normal 1.005-<=1.025 The [facility] Comment on above: Performed By: #### Mariaelena CHUNG UMICRO #### [facility] [address] [place] [address] Dr. Aidan Mccain UA PROTEIN Negative Normal NEGATIVE/ TRACE The [facility] Comment on above: Performed By: #### Mariaelena CHUNG UMICRO #### [facility] [address] [place] [address] Dr. Aidan Mccain UR MICRO IND INDICATED Normal The [facility] Comment on above: Performed By: #### E SHELDON UMICRO #### [facility] [address] [place] [address] Dr. Aidan Mccain Urobilinogen Qn (U) 0.2 {Sami'U}/dL Normal 0.2 - 1. 0 The [facility] Comment on above: Performed By: #### E SHELDON UMICRO #### [facility] [address] [place] [address] Dr. Aidan Mccain URINE MICROSCOPIC ONLYon BACTERIA TRACE Abnormal NONE SEEN The [facility] Comment on above: Performed By: #### Mariaelena CHUNG UMICRO #### [facility] [address] [place] [address] Dr. Aidan Mccain Bacteria identified Cx Nom (U) INDICATED Normal The [facility] Comment on above: Performed By: #### Mariaelena CHUNG UMICRO #### [facility] [address] [place] [address] Dr. Aidan Mccain CAST NONE SEEN Normal NONE SEEN The [facility] Comment on above: Performed By: #### Mariaelena CHUNG UMICRO #### [facility] [address] [place] [address] Dr. Aidan Mccain Crystals LM Nom (Urine sed) NONE SEEN Normal NONE SEEN The [facility] Comment on above: Performed By: #### Mariaelena CHUNG UMICRO #### [facility] [address] [place] [address] Dr. Aidan Mccain Epithelial cells LM Ql (Urine sed) MANY Abnormal NONE SEEN /RARE The [facility] Comment on above: Performed By: #### Mariaelena CHUNG UMICRO #### [facility] [address] [place] [address] Dr. Aidan Mccain MUCOUS NONE SEEN Normal NONE SEEN The [facility] Comment on above: Performed By: #### E RUR, UMICRO #### [facility] [address] [place] [address] Dr. Aidan Mccain RBC 2-5 Abnormal 0-2 The [facility] Comment on above: Performed By: #### E RUR, UMICRO #### [facility] [address] [place], [place] [address] Dr. Aidan Mccain WBC 5-10 Abnormal NONE SEEN The [facility] Comment on above: Performed By: #### CARLOS ENRIQUE WHEELER #### [facility] [address] [place], [place] [address] Dr. Aidan Mccain MRI LSPINE WO CONon [...] SKYLER COLUNGA Date: 2022-01-23 17:37 Normal [facility] MAMM SCREEN 3D DAYANA CADon 01-20-2022 MG MAMM SCREEN 3D DAYANA CAD Patient: CATA NICHOLE Exam Date: 01/20/2022 : 1975 Gender:F Ordering : DR EDUARDO MAN M.D. Admission #: [id number] Family : DR WHEELEREmilee BERGMAN . Order #: [id number] CLICK HERE TO VIEW EXAM RADIOLOGY REPORT [...] lupus cancer at age 70. LOCATION: The [facility] BREAST COMPOSITION: Extremely dense, which [...] Colunga M.D. on 01/20/2022 at 14:48 Normal [place] XR CHEST 2 Von 12-12-2021 XR CHEST [...] by: JUNO CORTES Date: 2021-12-12 15:09 Normal [place] Vital Signs Date Time Vital Sign Value Performing Clinician Facility 12-17-2023 10:55-0400 Diastolic blood pressure 66 mm[Hg] II Eduardo Man Work Phone: [facility] 12-17-2023 10:55-0400 Heart rate 71 /min II Eduardo Man Work Phone: [facility] 12-17-2023 10:55-0400 Respiratory rate 16 /min II Eduardo Man Work Phone: [facility] 12-17-2023 10:55-0400 SaO2% (BldA) [Mass fraction] 100 % II Eduardo Man Work Phone: [facility] 12-17-2023 10:55-0400 Systolic blood pressure 129 mm[Hg] II Eduardo Man Work Phone: [facility] 12-17-2023 08:26-0400 Body height 156.21 cm II Eduardo Man Work Phone: [facility] 12-17-2023 08:26-0400 Body weight 50 kg II Eduardo Man Work Phone: [facility] 11-25-2023 09:47-0400 Body height 157.48 cm [facility] 11-25-2023 09:47-0400 Body mass index (BMI) [Ratio] 18.6 kg/m2 [facility] 11-25-2023 09:47-0400 Body weight 46.26 kg [facility] 11-25-2023 09:47-0400 Diastolic blood pressure 77 mm[Hg] [facility] 11-25-2023 09:47-0400 Heart rate 84 /min [facility] 11-25-2023 09:47-0400 Systolic blood pressure 108 mm[Hg] [facility] 09-15-2023 08:39-0500 Body mass index (BMI) [Ratio] 20.6 kg/m2 Milagro Palomares RN CARDIOLOGY Work Phone: [facility] 09-15-2023 08:39-0500 Body weight 49.44 kg Milagro Palomares RN CARDIOLOGY Work Phone: [facility] 09-15-2023 08:39-0500 Diastolic blood pressure 82 mm[Hg] Milagro Palomares RN CARDIOLOGY Work Phone: [facility] 09-15-2023 08:39-0500 Heart rate 89 /min Milagro Palomares RN CARDIOLOGY Work Phone: [facility] 09-15-2023 08:39-0500 SaO2% (BldA) [Mass fraction] 98 % Milagro Palomares RN CARDIOLOGY Work Phone: [facility] [employer] 09-15-2023 08:39-0500 Systolic blood pressure 118 mm[Hg] Milagro Palomares RN CARDIOLOGY Work Phone: [facility] [employer] 07-08-2023 14:40-0500 Body height 157.48 cm Chapito Brush Other [employer] Other 07-08-2023 14:40-0500 Body mass index (BMI) [Ratio] 20.12 kg/m2 Chapito Brush Other [employer] Other 07-08-2023 14:40-0500 Body weight 49.9 kg Chapito Brush Other [employer] Other 06-29-2023 09:00-0500 Body height 157.48 cm Maurisio Jones Other [employer] Other 06-29-2023 09:00-0500 Body mass index (BMI) [Ratio] 21.03 kg/m2 Maurisio Jones Other [employer] Other 06-29-2023 09:00-0500 Body weight 52.16 kg Maurisio Jones Other [employer] Other 08-18-2022 15:40-0500 Body height 157.48 cm Chapito Brush Other [employer] Other 08-18-2022 15:40-0500 Body mass index (BMI) [Ratio] 20.99 kg/m2 Chapito Brush Other [employer] Other 08-18-2022 15:40-0500 Body weight 52.07 kg Chapito Brush Other [employer] Other 08-18-2022 15:40-0500 Diastolic blood pressure 82 mm[Hg] Chapito Brush Other [employer] Other 08-18-2022 15:40-0500 Systolic blood pressure 130 mm[Hg] Chapito Brush Other [employer] Other 06-02-2022 14:00-0400 Body height 157.48 cm Chapito Brush Other [employer] Other 06-02-2022 14:00-0400 Body mass index (BMI) [Ratio] 21.03 kg/m2 Chapito Brush Other [employer] Other 06-02-2022 14:00-0400 Body weight 52.16 kg Chapito Brush Other [employer] Other 04-28-2022 16:00-0400 Body height 157.48 cm Zeny Kaiser Other [employer] Other 04-28-2022 16:00-0400 Body mass index (BMI) [Ratio] 21.03 kg/m2 Zeny Kaiser Other [employer] Other 04-28-2022 16:00-0400 Body weight 52.16 kg Zeny Kaiser Other [employer] Other 03-10-2022 17:00-0400 Body height 157.48 cm Chapito Brush Other [employer] Other 03-10-2022 17:00-0400 Body mass index (BMI) [Ratio] 21.03 kg/m2 Chapito Brush Other [employer] Other 03-10-2022 17:00-0400 Body weight 52.16 kg Chapito Brush Other [employer] Other Encounters Encounter Date Encounter Type Care Provider Facility Start: 02-08-2024 End: 02-08-2024 ambulatory II Eduardo Man Work Phone: [facility] Work Phone: Start: 02-08-2024 End: 02-08-2024 Patient encounter procedure II Eduardo Man Work Phone: [facility] Work Phone: Start: 01-19-2024 End: 01-19-2024 ambulatory EMILE EDITH Not Available Start: 01-17-2024 End: 01-17-2024 ambulatory PAULINELYNN JUAREZ Not Available Start: 01-06-2024 End: 01-06-2024 ambulatory ALICIA WAGONER Not Available Start: 01-04-2024 End: 01-04-2024 ambulatory EMILE EDITH Not Available Start: 12-17-2023 End: 12-17-2023 ambulatory Imad Asaad Facility:[facility] Start: 12-17-2023 Non-patient / Non-visit II Eduardo Man Work Phone: [facility] Work Phone: Start: 12-17-2023 End: 12-17-2023 Admission to same day surgery center II Eduardo Man Work Phone: [facility] Work Phone: Start: 12-17-2023 End: 12-17-2023 ambulatory II Eduardo Man Work Phone: [facility] Work Phone: Start: 12-07-2023 End: 12-07-2023 ambulatory JACKLYN BONE Not Available Start: 12-02-2023 End: 12-02-2023 ambulatory EDUARDO MAN Not Available Start: 11-25-2023 End: 11-25-2023 ambulatory [facility] Work Phone: Start: 11-25-2023 End: 11-25-2023 Patient encounter procedure [facility] Work Phone: Start: 09-15-2023 Chart abstracting Milagro aguilar RN CARDIOLOGY Work Phone: [facility] Start: 09-15-2023 End: 09-15-2023 Office outpatient visit 25 minutes Milagro Palomares RN CARDIOLOGY Work Phone: [facility] Comment on above: Chronic idiopathic c onstipation (Primary Dx) Start: 09-15-2023 End: 09-15-2023 ambulatory MILAGRO PALOMARES Not Available Start: 09-02-2023 End: 09-02-2023 ambulatory Maurisio Jones Other [employer] Other Start: 09-02-2023 Office outpatient visit 25 minutes Maurisio Jones [facility] Start: 08-19-2023 End: 08-19-2023 ambulatory Maurisio Jones Facility:[facility] Start: 08-19-2023 End: 08-19-2023 ambulatory II Eduardo Man Work Phone: [facility] Work Phone: Start: 08-19-2023 End: 08-19-2023 Patient encounter procedure II Eduardo Man Work Phone: [facility] [address] Work Phone: Start: 08-16-2023 End: 08-16-2023 ambulatory MILAGRO PALOMARES Not Available Start: 08-04-2023 End: 08-04-2023 ambulatory MILAGRO PALOMARES Not Available Start: 07-15-2023 End: 07-15-2023 ambulatory Maurisio Jones Other [employer] Other Start: 07-15-2023 Office outpatient visit 25 minutes Maurisio Jones [facility] Start: 07-13-2023 End: 07-13-2023 ambulatory Zeny Kaiser Other [employer] Other Start: 07-13-2023 Office outpatient visit 25 minutes Zeny Carder [facility] [place] Start: 07-08-2023 End: 07-08-2023 ambulatory Chapito Brush Other [employer] Other Start: 07-08-2023 Office outpatient visit 15 minutes Chapito Brush [facility] Start: 07-05-2023 (Procedure) Short Zeny Kaiser [facility] Start: 07-05-2023 End: 07-05-2023 ambulatory Zeny Kaiser Other [employer] Other Start: 06-29-2023 Office outpatient ne w 45 minutes Maurisio Jones [facility] Start: 06-29-2023 End: 06-29-2023 ambulatory Maurisio Jones [facility] [employer] Other Start: 06-29-2023 End: 06-29-2023 Patient encounter procedure II Eduardo Man Work Phone: [facility] Start: 06-17-2023 End: 06-17-2023 ambulatory Zeny Kaiser Other [facility] Other Start: 06-17-2023 Office outpatient visit 25 minutes Zeny Carder [facility] Start: 05-06-2023 End: 05-06-2023 ambulatory Zeny Awilda Other [facility] Other Start: 05-06-2023 Office outpatient visit 15 minutes Zeny Kyawer [facility] [place] Start: 04-23-2023 End: 04-23-2023 ambulatory Zeny Kaiser Facility:[facility] Start: 04-23-2023 End: 04-23-2023 ambulatory II Eduardo Man Work Phone: [facility] Work Phone: Start: 04-23-2023 End: 04-23-2023 Patient encounter procedure II Eduardo Man Work Phone: [facility] [place] Work Phone: Start: 04-14-2023 (Procedure) Kalen Kaiser [facility] Start: 04-14-2023 End: 04-14-2023 ambulatory Zeny Kaiser Other [employer] Other Start: 04-01-2023 End: 04-01-2023 ambulatory Zeny Kaiser Other [employer] Other Start: 04-01-2023 Telephone encounter Zeny Awilda YOSELIN G [facility] Start: 03-30-2023 End: 03-30-2023 ambulatory Zeny Kaiser Other [employer] Other Start: 03-30-2023 Office outpatient visit 25 minutes Zeny Awilda [facility] Start: 03-15-2023 End: 03-15-2023 ambulatory Zeny Kaiser Other [employer] Other Start: 03-15-2023 Telephone encounter Zeny Kaiser YOSELIN G [facility] Start: 02-18-2023 End: 02-18-2023 ambulatory Zeny Kaiser Other [employer] Other Start: 02-18-2023 Office outpatient visit 15 minutes Zeny Awilda [facility] Start: 01-28-2023 Office outpatient visit 25 minutes Zeny Kyawer [facility] [place] Start: 01-28-2023 End: 01-28-2023 ambulatory II Eduardo Man Work Phone: [employer] Other Start: 01-28-2023 End: 01-28-2023 Patient encounter procedure II Eduardo Man Work Phone: [facility] Start: 01-06-2023 (Procedure) Kalen Kaiser [facility] Start: 01-06-2023 End: 01-06-2023 ambulatory Zeny Kaiser Other [employer] Other Start: 12-21-2022 End: 12-21-2022 ambulatory Zeny Kaiser Other [employer] Other Start: 12-21-2022 Office outpatient visit 25 minutes Zeny Kaiser [facility] Start: 11-19-2022 End: 11-20-[address] PAULINE JUAREZ Facility: Start: 11-02-2022 End: 11-02-2022 ambulatory Zeny Kyawallen Other [employer] Other Start: 11-02-2022 Telephone encounter [facility] Start: 09-22-2022 End: 09-22-2022 Patient encounter procedure II Eduardo Man Work Phone: [facility] Start: 09-22-2022 End: 09-22-2022 ambulatory II Eduardo Man Work Phone: [facility] Work Phone: Start: 09-22-2022 Office outpatient visit 15 minutes Zeny Kaiser [facility] Start: 08-18-2022 End: 08-18-2022 ambulatory Chapito Brush Other [employer] Other Start: 08-18-2022 Office outpatient visit 15 minutes Chapito Brush [facility] Start: 08-11-2022 End: 08-11-2022 ambulatory Zeny Kaiser Other [employer] Other Start: 08-11-2022 Office outpatient visit 15 minutes Zeny Kaiser [facility] Start: 07-20-2022 (Procedure) Kalen Kaiser [facility] Start: 07-20-2022 End: 07-20-2022 ambulatory Zeny Kaiser Other [employer] Other Start: 07-06-2022 (Procedure) Short Zeny Kaiser [facility] Start: 07-06-2022 End: 07-06-2022 ambulatory Zeny Kaiser Other [employer] Other Start: 06-29-2022 End: 06-29-[address] PAULINE JUAREZ Facility:[facility] Start: 06-27-2022 End: 06-27-2022 ambulatory SERGIO RAE Facility:[facility] Start: 06-22-2022 End: 06-22-2022 ambulatory Zeny Kaiser Other [employer] Other Start: 06-22-2022 Office outpatient visit 25 minutes Zeny Kaiser [facility] Start: 06-02-2022 End: 06-02-2022 ambulatory Chapito Brush Other [employer] Other Start: 06-02-2022 Office outpatient visit 15 minutes Chapito Brush [facility] Start: 05-25-2022 End: 05-25-2022 ambulatory Zeny Kaiser Other [employer] Other Start: 05-25-2022 Telephone encounter Zeny WYATT [facility] Start: 04-30-2022 End: 04-30-2022 ambulatory Zeny Kaiser Other [employer] Other Start: 04-30-2022 Telephone encounter Zeny WYATT G [employer] Start: 04-28-2022 End: 04-28-2022 ambulatory Zeny Kaiser Other [employer] Other Start: 04-28-2022 Office consultation new/estab patient 60 min Zeny Kaiser [facility] Start: 03-18-2022 End: 03-18-2022 ambulatory Chapito Brush Other [employer] Other Start: 03-18-2022 Telephone encounter Chapito Brush [facility] Start: 03-10-2022 End: 03-10-2022 Patient encounter procedure II Eduardo Man Work Phone: [facility] [place] Start: 03-10-2022 End: 03-10-2022 ambulatory Chapito Brush Other [facility] [employer] Other Start: 03-10-2022 Office outpatient ne w 30 minutes Chapito Brush [facility] Start: 02-27-2022 End: 02-28-2022 ambulatory BHASKAR KHAN . Facility:[facility] Start: 02-22-2022 End: 02-22-[address] FERNANDO Garza Facility:[facility] Start: 02-11-2022 End: 02-12-2022 ambulatory ALICIA WAGONER Facility:[facility] Start: 01-23-2022 End: 01-24-2022 ambulatory ALICIA WAGONER Facility:[facility] Start: 01-20-2022 End: 01-21-[address] EDUARDO MAN Facility:[facility] Start: 12-12-2021 End: 12-13-[address] PAULINE JUAREZ Facility:[facility] Procedures Date Procedure Procedure Detail Performing Clinician Start: 12-17-2023 Colonoscopy II Eduardo Man Work Phone: Start: 08-19-2023 MRI of right shoulder II Eduardo Donovan Work Phone: Start: 06-29-2023 Plain X-ray of bilateral shoulders II Eduardo Man Work Phone: Start: 04-23-2023 XR pre/post mri xray II Eduardo Man Work Phone: Start: 04-23-2023 MRI of cervical spine without contrast II Eduardo Donovan Work Phone: Start: 01-28-2023 X-ray of cervical spine II Eduardo Donovan Work Phone: Start: 09-22-2022 Plain X-ray of right shoulder II Eduardo Donovan Work Phone: Start: 03-10-2022 Pelvis X-ray II Eduardo Donovan Work Phone: Start: 03-10-2022 X-ray of lumbar spine, six views including bending views II Eduardo Man Work Phone: Start: 01-20-2022 Mammography Milagro Palomares NP Work Phone: Start: 07-18-2020 Microscopic observation [Identifier] in Cervix by Cyto stain Milagro Palomares RN CARDIOLOGY Work Phone: Start: 01-23-2019 Colonoscopy Milagro Palomares NP Work Phone: Start: 09-10-2015 H/O: hysterectomy History of partial hysterectomy Milagro Palomares NP Work Phone: Plan of Treatment Date Care Activity Detail Author Start: 01-23-2029 Screening for malign ant neoplasm of colon [facility] Start: 02-06-2024 Influenza vaccination Influenza Vacc ine (#1) [facility] Comment on above: Postponed from 04/09 (Patient Refused) Start: 12-17-2023 [facility] Start: 09-15-2023 End: 09-15-2023 Patient encounter procedure 09/15/2023 8:30 AM EST Office Visit [facility] [address] [facility] [address] [place] [id number] Milagro Palomares NP [address] [facility] [address] [place] [address] [facility] Start: 07-18-2023 Screening for malign ant neoplasm of cervix [facility] Start: 01-20-2023 Screening for malign ant neoplasm of breast Mammogram [facility] Start: 2007 Screening for malign ant neoplasm of cervix HPV/Cotest [facility] Start: 1977 Screening for malign ant neoplasm of colon [facility] Patient Education Colon polyps Hemorrhoids (DC) Know your Meds [facility] Work Phone: [facility] Immunizations Immunization Date Immunization Notes Care Provider Fa cility 05-28-2021 COVID-19 mRNA, Comirnaty (Pfizer) OTILIA Man Work Phone: [facility] 09-18-2020 COVID-19 mRNA, Comirnaty (Pfizer) OTILIA Man Work Phone: [facility] 08-28-2020 COVID-19 mRNA, Comirnaty (Pfizer) II Eduardo Man Work Phone: [facility] 06-22-2014 seasonal influenza, intradermal, preservative free Milagro Palomares RN CARDIOLOGY Work Phone: [facility] 06-22-2014 influenza virus vaccine, unspecified formulation Milagro Palomares RN CARDIOLOGY Work Phone: [facility] 01-28-1999 measles, mumps and rubella virus vaccine Milagro Marielle RN CARDIOLOGY Work Phone: [facility] Payers Date Payer Category Payer Self-pay [id number] 2022 Unknown BCBS BCBS xxxxxx [id number] 2022-Present [phone] [address] [place] [address] [id number] 1977 Unknown [id number] 2.16.840.1.280812.3.579.2.5 93 1977 Unknown [id number] 2.16.840.1.236142.3.579.2.5 93 1977 Unknown [id number] 2.16.840.1.929002.3.579.2.5 93 1977 Unknown [id number] 2.16.840.1.002047.3.579.2.5 93 1977 Unknown [id number] 2.16.840.1.275138.3.579.2.5 93 1977 Unknown [id number] 2.16.840.1.050388.3.579.2.5 93 1977 Unknown [id number] 2.16.840.1.106230.3.579.2.5 93 1977 Unknown [id number] 2.16.840.1.683511.3.579.2.5 93 1977 Unknown [id number] 2.16.840.1.106634.3.579.2.5 93 1977 Unknown [id number] 2.16.840.1.471890.3.579.2.1 259 1977 Unknown [id number] 2.16.840.1.078748.3.579.2.1 259 1977 Unknown [id number] 2.16.840.1.529945.3.579.2.1 259 1977 Unknown [id number] 2.16.840.1.603976.3.579.2.1 259 1977 Unknown [id number] 2.16.840.1.172340.3.579.2.1 259 1977 Unknown [id number] 2.16.840.1.179746.3.579.2.1 259 1977 Unknown [id number] 2.16.840.1.220326.3.579.2.1 259 1977 Unknown [id number] 2.16.840.1.666732.3.579.2.1 259 1977 Unknown [id number] 2.16.840.1.451531.3.579.2.1 259 1977 Unknown [id number] 2.16.840.1.045387.3.579.2.1 259 1959 Blue Cross Blue Shield [id number] 2.16.840.1.993160. 1959 [employer] Cross Blue Shield [id number] 2.16.840.1.501348.19 1959 Unknown [id number] 2.16.840.1.857271. 1959 Unknown [id number] 1959 Unknown [id number] Private Health Insurance [id number] Unknown [employer] [id number] 2.16.840.1.066578.3.579.2.5 31 Unknown [id number] 2.16.840.1.040638.3.579.2.5 31 Unknown [id number] 2.16.840.1.948587.3.579.2.5 31 Unknown [id number] Unknown [id number] Social History Date Type Detail Facility Start: 08-04-2023 End: 09-15-2023 Sex Assigned At [facility] Work Phone: Start: 01-23-2019 End: 12-17-2023 Tobacco smoking status NHIS Smoker (finding) [facility] Start: 1975 Sex Assigned At Female F [facility] Start: 04-22-2023 Tobacco smoking stat us [facility] Smokes tobacco daily [facility] History of [...] At Not on file [facility] Goals Date Patient Goal Desired Activity /State Clinical Notes 06-27-2013 to 12-17-2023 Note Date & Type Note Facility 12-17-2023 Procedure note [facility] 11-25-2023 Evaluation note Authored November 25, 2023 10:18am 48-year-old female referred to the gastroenterology clinic for evaluation of constipation. Patient reports 1 bowel movement every 3 to 4 days. No alarming signs Last colonoscopy in 2019 was normal. Patient is on Linzess and multiple stool softener without significant improvement of constipation -Will check TSH CRP and fecal calprotectin. -Will arrange for colon cleanout then colonoscopy -Patient was recommended to avoid dehydration, maintain regular activity/exercise, use Miralax 17gm PO Qday and titrate up to twice or three times daily if needed for goal of 1 bowel movement a day. [facility] Work Phone: 1(991) 832-928802-07-2024 History of Present illness Narrative* Milagro Palomares, SEBASTIAN - 09/15/2023 8:30 AM EST Subjective Patient ID: Cata Leo Dayanara is a 48 y.o. female who presents for Constipation. Pt has been taking magnesium and states she does feel full ,very bloated, very gassy, not really able to eat . Pt suggested dr benavieds she has seen him before , would [...] mg) before bedtime. 200 capsule 3 HYDROcodone-acetaminophen (Nara Visa) 5-325 MG tablet Take 1 tablet by [...] LAPAROTOMY 11/[address] Bergman LUMBAR DISCECTOMY 2014 L5-S1 Dr Pagan OTHER SURGICAL HISTORY Bilateral Facet Blocks L4-S1 05/13/2020, 07/17/2020, 09/09/2020, 11/04/2020, 03/07/2021 OTHER SURGICAL HISTORY Bilateral Facet Injections L4-L5 08/19/2021, 12/09/2021 PARTIAL HYSTERECTOMY 2009 ID EDG TRANSORAL BIOPSY SINGLE/MULTIPLE 2012 ID INJECT TENDON SHEATH/LIGAMENT 06/2015 mid back and [...] on file. documented in [facility] encounter[facility] [id number] Evaluation note* Encounter Date Diagnosis Assessment Notes [...] and no personal patient information was compromised. [employer] Other 12-07-2023 Evaluation note* Encounter Date Diagnosis [...] Jul, Other chronic pain (ICD-10 - G89.29) [employer] Other 12-05-2023 Evaluation note* Encounter Date Diagnosis [...] note writ ten by Polo Andino MA, Traffic Officer. Edited and approved by Dr. Zeny Kaiser MD. [employer] Other 11-30-2023 Evaluation note* Encounter Date Diagnosis [...] Jun, Spondylolisthesis, lumbosacral region (ICD-10 - M43.17) [employer] Other 11-21-2023 Evaluation note* Encounter Date Diagnosis [...] Jun, Other chronic pain (ICD-10 - G89.29) [employer] Other 11-09-2023 Evaluation note* Encounter Date Diagnosis [...] note writ ten by Polo Andino MA, Traffic Officer. Edited and approved by Dr. Zeny Kaiser MD. [employer] Other 09-28-2023 Evaluation note* Encounter Date Diagnosis [...] note writ ten by Andreea Colon LPN, Traffic Officer. Edited and approved by Dr. Zeny Kaiser MD. [employer] Other 08-22-2023 Evaluation note* Encounter Date Diagnosis [...] note writ ten by Andreea Colon LPN, Traffic Officer. Edited and approved by Dr. Zeny Kaiser MD. [facility] Study Course Other 07-13-2023 Evaluation note* Encounter Date Diagnosis [...] note writ ten by Polo Andino MA, Traffic Officer. Edited and approved by Dr. Zeny Kaiser MD. [employer] Other 06-22-2023 Evaluation note* Encounter Date Diagnosis [...] note writ ten by Polo Andino MA, Traffic Officer. Edited and approved by Dr. Zeny Kaiser MD. [employer] Other 05-15-2023 Evaluation note* Encounter Date Diagnosis [...] note writ ten by Andreea Colon LPN, Traffic Officer. Edited and approved by Dr. Zeny Kaiser MD. [employer] Other 02-14-2023 Evaluation note* Encounter Date Diagnosis [...] note writ ten by Andreea Colon LPN, Traffic Officer. Edited and approved by Dr. Zeny Kaiser MD. [employer] Other 01-10-2023 Evaluation note* Encounter Date Diagnosis [...] Aug, Spondylolisthesis, lumbosacral region (ICD-10 - M43.17) [employer] Other 01-03-2023 Evaluation note* Encounter Date Diagnosis [...] note writ ten by Andreea Colon LPN, Traffic Officer. Edited and approved by Dr. Zeny Kaiser MD. [employer] Other 11-14-2022 Evaluation note* Encounter Date Diagnosis [...] note writ ten by Andreea Colon LPN, Traffic Officer. Edited and approved by Dr. Zeny Kaiser MD. [employer] Other 10-25-2022 Evaluation note* Encounter Date Diagnosis [...] and sacroiliac pain and takes Valium and Nara Visa chronically as well as gabapentin 400 mg p.o. twice daily. Her back is feeling better after some injections that she got. I recommend that she continues to get these injections and that she at least taper down her gabapentin to half the amount. She then needs to begin working on tapering down Nara Visa and Valium. At this point she is not a good operative candidate with this medication mix. I will see her back at the beginning of the year to see how she is doing May, Spondylolisthesis, lumbosacral region (ICD-10 - M43.17) [employer] Other 09-20-2022 Evaluation note* Encounter Date Diagnosis [...] note writ ten by Andreea Colon LPN, Traffic Officer. Edited and approved by Dr. Zeny Kaiser [...] negative findings were considered in medical decision-making. [employer] Other 08-02-2022 Evaluation note* Encounter Date Diagnosis [...] with sciatica, left side (ICD-10 - M54.42) [employer] Other 01-04-2022 NotePROCEDURE: [employer] VCT 64, 5.0 mm slice axial images [...] signed by Tin [place] on 08/12/2021 [id number] [id number] History general Narrative - Reported* Type Description Date Medical History asthma Medical History allergic rhinitis Medical History 06/27/13 Capsule endoscopy-rapid transit Medical History 06/07/13 Colonoscopy-tubular jazmin noma Medical History 04/28/13 EGD/Ramsay-hiatal hernia, no acid reflux Surgical History Partial hysterectomy Surgical History blood transfusion Surgical History Back Surgery 2013 Hospitalization History See above [employer] Other evaluation noteNo InformationNortRingMD Other evaluation noteNo assessment information available [facility] Work Phone: Evaluation note* Diagnosis Chronic idiopathic constipation- Primary Unspecified constipation documented in this encounter [facility] HealthcareEvaluation note* Diagnosis Onset Date Resolution Status Constipation acute [facility] Work Phone: Hospital Discharge instructions Additional [...] months -Follow up with PCP. -Office number [phone]. [facility] Work Phone: Reason for referral (narrative)* Consultation (Routine) - Authorized Specialty Diagnoses / Procedures Referred By Teto eaton Referred To Contact Gastroenterology Diagnoses Chronic idiopathic constipation Procedures ID OFFICE/OUTPATIENT [facility] 60 MINUTES Milagro Palomares, SEBASTIAN [address] [address] Ankur Benavides MD [address] [place] [id number] Referral ID Status Reason Start Date Expiration Date Visits Requested Visits Authorized [id number] Authorized Specialty Services Required 09/15/2023 03/13/2024 1 1 [facility] Healthcare Summary Purpose Family History Relationship Condition [...] infarction Unknown brother Hypertension Unknown Advance Directives Advance Directive Response Recorded Date/ Time Advance Directives No January 20 9:27am Advance Directive Response Recorded Date/ Time Advance Directives No January 20 8:27am Reason for Referral Reason Evaluate and Treat B ack and Leg Pain Diagnosis 1 Left lumbar radiculo prema (M54.16) Referral Organization [facility] urosurgery Referring Provider First Name Chapito Referring Provider Last Name Gonsalo Referring Provider Specialty Neurologica l Surgery Referred Organization [facility] Referred Address ,[place], [place],[address] Referred Provider Specialty Physical The rapist Referral Priority Routine Reason DAYANA shoulder pa in, please evaluate Diagnosis 1 Shoulder pain (M25.5 19) Referral Organization [facility] Pain Managemen t Bone Lumbee Referring Provider First Name Zeny Referring Provider Last Name Awilda Referring Provider Specialty Pain Medici ne Referred Organization [facility] Ortho pedics Referred Provider Maurisio Jones Referred Address [address] [facility],[address] Referred Provider Specialty Orthopedic S urgery Referral Priority Routine General Notes Errol Kaye 06/17 10:10:57 AM > Received referral today, sent P2P Chief Complaint and Reason for Visit Chief Complaint M54.16 Chief Complaint M25.511 M47.22 Chief Complaint M25.511;M25.512 M24.811 Chief Complaint chronic constipation Reason for Visit Constipation Chief Complaint chronic constipation constipation/abd. pain constipation/abd. pain Reason for Visit Constipation Chief Complaint chronic constipation constipation/abd. pain constipation/abd. pain RECHECK BACK PAIN Reason for Visit Constipation Arthritis of facet joint of cervical spine Arthritis of lumbosacral spine Other chronic pain Other spondylosis with radiculopathy, cervical region Additional Source Comments INFORMATION SOURCE (unrecogn ized section and content) DATE CREATED AUTHOR 08/13/2021 [facility] dical Specialist DATE CREATED AUTHOR AUTHOR'S ORGANIZ ATION 11/20/2022 [facility] DATE CREATED AUTHOR AUTHOR'S ORGANIZ ATION 12/31/2023 [facility] DATE CREATED AUTHOR AUTHOR'S ORGANIZ ATION 01/20/2024 [facility] dical Specialists EPIC REASON FOR VISIT (unrecogniz [...] Active Maurisio Jones DO Attending Provider Active Personal Injury Law Specialist Relationship Specialty Start Date End Date Eduardo Man MD [address] [place] [address] PCP - General Internal Medicine 01/04/23 Eduardo Man MD [address] [place] [address] PCP - [place] [employer] 04/09/23 Personal Injury Law Specialist Relationship Specialty Start Date End Date Eduardo Man MD [address] [place] [address] PCP - General Internal Medicine 01/04/23 Eduardo Man MD [address] [place] [address] PCP - [place] [employer] 04/09/23 Team Status: Inactive Member Role [...] Provider Act kelton Start: December 17, 2023 Team Status: Inactive Member Role Status Dates Eduardo Man II MD Primary Care Provider Active Start: February 08, 2024 End: February 08, 2024 Zeny Kaiser MD Attending Provider Active Sta rt: February 08, 2024 End: February 08, 2024 Goals (unrecognized section and content) Goals may [...] BE BASED ON THE PRIMARY CLINICAL RECORDS. [facility] [employer] [facility]. provides no warranty or guarantee of the accuracy or completeness of information in this document.
[2024-02-11 07:41] LABS: Basophils Absolute Auto 0.1 10^3/uL (0.0-0.1); Basophils Percent Auto 0.9 % (0.2-2.0); Eosinophils Absolute Auto 0.2 10^3/uL (0.0-0.7); Eosinophils Percent Auto 3.5 % (0.9-7.0); Hematocrit 42.7 % (36.0-48.0); Hemoglobin 14.3 g/dL (12.0-16.0); Immature Granulocytes Abs Auto 0.01 10^3/uL (0.00-0.03); Immature Granulocytes Pct Auto 0.1 % (0.0-0.5); Lymphocytes Absolute Auto 2.3 10^3/uL (1.2-3.8); Lymphocytes Percent Auto 33.2 % (20.5-60.0); Mean Corpuscular HGB Conc 33.5 g/dL (29.9-35.2); Mean Corpuscular Hemoglobin 33.5 pg (26.7-34.0); Mean Platelet Volume 8.9 fL (9.5-13.5); Monocytes Absolute Auto 0.8 10^3/uL (0.3-0.8); Monocytes Percent Auto 11.1 % (1.7-12.0); Neutrophils Absolute Auto 3.5 10^3/uL (1.4-6.5); Neutrophils Percent Auto 51.2 % (43.0-75.0); Platelet Count 255 10^3/uL (150-450); Red Blood Count 4.27 10^6/uL (4.20-5.40); Red Cell Distribution Width 11.8 % (11.0-15.0); White Blood Count 6.9 10^3/uL (4.0-11.0)
[2024-02-11] MEDS: LACTATED RINGER'S SOLUTION 1,000 ML 50 ML IV (07:57)
--- NOTE | 2024-02-11 10:35 | PM.ONB ---
Brief Operative Note Date of procedure: 02/11/24 Pre-op diagnosis general: pelvic pain Post-op diagnosis: same as pre-op Procedure: NAME OF PROCEDURE: robotic assisted diagnostic laparoscopy extensive endometriosis involving posterior culdesac, bowel, and bladder along with both ovaries. PROCEDURE: The patient was taken back to the Operating Room where she was given general anesthesia without difficulty. She was then prepped and draped in the normal sterile fashion after being placed in a dorsal lithotomy position. A wet sponge stick was placed into the patient's vagina. Attention was then turned to the patient's abdomen, where a scalpel was used to make a small infraumbilical incision. The S retractors were then used to dissect the underlying layers until the fascia could be seen. The fascia was then grasped with She clamps and tented up. A knife was then used to make a small incision to the fascia. The muscle was identified, at that time two sutures of #0 Vicryl on a GI needle was then used and placed through the fascia. the peritoneum was then identified and entered bluntly. The 10-4 Nancy was then placed into the patient's abdomen. This was confirmed with direct visualization of the bowel, using the laparoscope. The patient's abdomen was then insufflated using approximately 4 liters of CO2 gas. Survey of the patient's abdomen demonstrated small amount of endometrial implants on both ovaries otherwise normal in appearance, extensive edometriosis in posterior culdesac, bowel and bladder. absent tubes and uterus. A second and third rt and lt lateral robotic ports which were 8 mm in size, was then placed after the skin incision was made under direct visualization . the robotic arms were engaged. Excellent hemostasis was noted. The lateral ports were then moved under direct visualization with excellent hemostasis. All instruments were removed from the patient's abdomen. The fascia was closed using the #0 Vicryl on GI needle. The skin was closed using 4-0 Vicryl subcuticularly. All instruments were removed from the patient's vagina as well. The patient was taken out of the dorsal lithotomy position and placed in the supine position and taken to recovery in stable condition. Sponge, lap and needle counts were correct x2. Anesthesia: GETA Surgeon: Jose Angel Bergman Partition Assembler: Gracia Saavedra Estimated blood loss (mL): 5 Pathology: none sent Condition: stable Disposition: PACU Urinary Catheter Management Urinary Catheter Management Urethral: Cath placed during this visit: no
[2024-02-11] MEDS: HYDROCODONE/ACET 5-325 MG TABLET 1 TAB PO (11:15)
== END 2024-02-11 13:00 | disposition home or self-care (01) ==
PROVIDERS: PCP Internal Medicine; Visit Provider Obstetrics & Gynecology
PROC: (CPT 840; principal; 2024-02-11 08:45)
DX: R10.2 Pelvic and perineal pain (principal); N80.103 Endometriosis of bilateral ovaries, unspecified depth; N80.329 Endometriosis of the posterior cul-de-sac, unspecified depth; Z90.711 Acquired absence of uterus with remaining cervical stump; F17.210 Nicotine dependence, cigarettes, uncomplicated; J45.909 Unspecified asthma, uncomplicated; E78.5 Hyperlipidemia, unspecified; K21.9 Gastro-esophageal reflux disease without esophagitis; Z86.718 Personal history of other venous thrombosis and embolism
CPT/HCPCS: 49320; 36415; 85025; J1100; J1885; J2250; J2405; J2704; J3010

== ENCOUNTER 2024-05-10 10:42 | Outpatient (OUT) | payer BC, SELFPAY ==
--- OUTSIDE RECORDS SUMMARY | 2024-05-10 11:02 | XMS_ITS | CCD ---
Author Organization [facility] Care Team Providers Care Pest Control Operator Name Role Phone Chapito Brush Unavailable OTILIA Man Primary Care Provider [phone] MD Chapito Brush Attending Provider [phone] Zeny Kaiser Unavailable OTILIA Man Primary Care Provider [phone] MD Zeny Kaiser Attending Provider ANN, DR PAULINE Gu Admitting Unavailable HEMMER, DR PAULINE Gu Attending Unavailable JAZMINE LIAO Consulting Unavailable DONOVAN, DR KABA Primary Care Unavailable HEMMER, DR PAULINE Gu Consulting Unavailable HEMMER, DR PAULINE Gu Attending Unavailable HEMMER, DR PAULINE Gu Admitting Unavailable HEMMER, DR PAULINE Gu Consulting Unavailable MAN, DR KBAA Primary Care Unavailable HEMMER, DR PAULINE Gu [...] Unavailable DONOVAN, DR KABA Primary Care [facility] Referring Unavailable ALICIA WAGONER Attending Unavailable ALICIA WAGONER Admitting Unavailable DONOVAN, DR KABA Primary Care Unavailable ALICIA WAGONER Admitting Unavailable ALICIA WAGONER Attending Unavailable LEIGHA, DR SKYLER Hurley Consulting Unavailable DONOVAN, DR KABA Primary Care Unavailable ALICIA WAGONER Consulting Unavailable DONOVAN, DR KABA Consulting Unavailable MAN, DR KABA Attending Unavailable MAN, DR KABA Admitting Unavailable DONOVAN, DR KABA Primary Care Unavailable EDITH ., DR BAPTISTE Consulting Unavailable LEIGHA, DR SKYLER Hruley Consulting Unavailable Man, II Eduardo Primary Care Provider MD Zeny Kaiser Attending Provider Donovan, II Eduardo Primary Care Provider [phone] MD Zeny Kaiser Attending Provider Maurisio Jones Unavailable Man, II Eduardo Primary Care Provider [phone] DO Maurisio Jones Attending Provider Eduardo Man MD Primary Care Provider Eduardo Man MD Unavailable [phone] Donovan, II Eduardo Primary Care Provider MD Martita Pandey Attending Provider Zeny Kaiser Admitting Unavailable Zeny Kaiser Attending Unavailable Eduardo Man Primary Care Unavailable Maurisio Jones Attending Unavailable Eduardo Man Primary Care Unavailable Michael Jonesin Elizabeth Admitting Unavailable Maurisio Jones Attending Unavailable Eduardo Man Primary Care Unavailable Maurisio Jones Admitting Unavailable Asaad, Imnabil Admitting Unavailable Asaad, Imad Attending Unavailable Eduardo Man Primary Care Unavailable Zeny Kaiser Admitting Unavailable Zeny Kaiser Attending Unavailable Eduardo Man Primary Care Unavailable MILAGRO PALOMARES Attending Unavailable MILAGRO PALOMARES Referring Unavailable MILAGRO PALOMARES Attending Unavailable JAZMINE AVENDAÑO Attending Unavailable ZENY KAISER Referring Unavailable EDUARDO MAN Attending Unavailable JACKLYN BONE Attending Unavailable EMILE BERGMAN Attending Unavailable ALICIA WAGONER Attending Unavailable PAULINE JUAREZ Attending Unavailable EMILE BERGMAN Attending Unavailable ABRAHAM JONES Attending Unavailable PAULINE JUAREZ Attending Unavailable JAZMINE AVENDAÑO Attending Unavailable ZENY [facility] Referring Unavailable Allergies Allergy Classification Reported Allergen(s) Allergy Type Date of Onset Reaction(s) Facility (1 source) egg extract Drug Allergy 09-17-2014 [facility] Repository (1 source) Papaveretum Drug Allergy 09-17-2014 [facility] Repository (1 source) venlafaxine Drug Allergy 09-17-2014 [facility] Repository (1 source) Wheat preparation Drug Allergy 09-17-2014 [facility] Repository (3 sources) venlafaxine Drug Allergy 08-15-2021 [facility] Medications Current Medications Medication Drug Class(es) Dates Sig (Normalized) Sig (Original) acetaminophen 325 mg / HYDROcodone bitartrate 5 mg oral tablet (20 sources) Opioid Agonist Start: 08-30-2023 take 1 tablet by mouth every six hours HYDROcodone-acetamin ophen ([place]) 5-325 MG tablet Indications: Degeneration of lumbar [...] take 1 puff(s) by inhalation twice daily [id number] actuat albuterol 0.09 mg/actuat metered dose inhaler (20 sources) beta2-Adrenergic Agonist Start: take 2 puff(s) [...] as needed aspirin 81 mg chewable tablet (5 sources) Platelet Aggregation Inhibitor, Nonsteroidal Anti-inflammatory Drug [...] 3 05/19/2023 Active take 1 capsule by [facility] every twenty-four hours Gabapentin 400 MG 1 capsule Orally Once a day Active linaclotide 0.29 mg oral capsule (9 sources) Guanylate Cyclase-C Agonist Start: 11-25-2023 take [...] meclizine hydrochloride 25 m g oral tablet (19 sources) Antiemetic Start: 12-03-2023 Meclizine Acti ve [...] 2023 9:51am montelukast 10 mg oral tablet (8 sources) Leukotriene Receptor Antagonist Start: 12-03-2023 take [...] morning. 0 Active Multivitamin (Daily Multi-Vitamin) tablet (5 sources) Start: 12-03-19 take 1 tablet by [...] Start: 02-15-2023 take 1 capsule by mo [facility] once daily omeprazole (PriLOSEC) [address] capsule Indications: Gastro-esophageal reflux disease without esophagitis TAKE 1 CAPSULE BY MOUTH EVERY DAY 90 capsule 3 02/15/2023 Active Omeprazole Not-T aking ondansetron 4 mg disintegrating oral tablet (14 sources) Serotonin-3 Receptor Antagonist Start: 05-24-2023 take [...] Sig (Original) baclofen 10 mg oral tablet (11 sources) gamma-Aminobutyric Acid-ergic Agonist Start: 01-20-2019 End: 11-25-2023 take 5 mg by mouth three times daily Baclofen Discontinued 5 MG PO Three times daily January 20, 2019 12:00am November 25, 2023 9:51am plecanatide 3 mg oral tablet (14 sources) Start: 01-20-2019 End: 03-10-2024 take 3 [...] health; Translations: [Other specified anxiety disorders] Onset: 2023 Chronic Asthma (13 sources) Mild intermittent asthma [...] lumbosacral region Episodic Other connective tissue disease (3 sources) Myalgia, unspecified site; Translations: [Myalgia and myositis, unspecified] Onset: 2 Episodic Other connective tissue disease (12 sources) Disorder of rotator cuff; Translations: [Unspecified rotator cuff tear or rupture of left shoulder, not specified as traumatic] Episodic Other connective tissue disease (4 sources) Muscle pain; Translations: [Myalgia, unspecified site] Onset: 3 01-07-2023 Episodic Other ear and sense organ [...] 7 01-07-2023 Chronic Other nervous system disorders (20 sources) Other chronic pain; Translations: [Other chronic [...] allergic and dietetic gastroenteritis and colitis] Onset: 01-07-2023 Episodic Bacterial infection; unspecified site (6 [...] Onset: Episodic Other aftercare (1 source) Other superintendent container terminal (current) drug therapy; Translations: [OTH CARE HOME CURRENT DRUG THERAPY] Onset: Episodic Other [...] Onset: 01-07-2023 Episodic Other connective tissue disease (1 source) [...] Allergic rhinitis; Translations: [Allergic rhinitis, unspecified] Onset: 017 Resolve d: 05-24-2023 Chronic Residual codes; unclassified [...] Test Name Value Interpretation Reference Range Facility [facility] 12-17-2023 L Specimen: [id number] Received: 12/17/231157 Status: SOUT Req Num: [id number] Spec Type: Surgical Subm Dr: Martita Pandey MD Tissues: A Colon Biopsy (ASCENDING COLON POLYP) Procedures: HE/2, Gross/Micro L4 Age/ Patient Sex Location Account Attending Physician Cata Nichole 48/F [id number] Martita Pandey MD SPEC NUM: [id number] RECD: 12/17/23 STATUS: TROY LIMA NUM: [id number] ZACH: 12/17/23 [facility] DR: Martita Pandey MD ENTERED: 12/17/[address] [facility] [address]: SPEC TYPE: Surgical DEPT: S ORDERED: [...] Clinical history: Constipation, abdominal pain CPT Codes 36710 -------- -------- Specimen: [id number] Received: 12/17/23 Status: TROY Req Num: [id number] Spec Type: Surgical Subm Dr: Martita Pandey MD Tissues: A Colon Biopsy (ASCENDING COLON POLYP) Procedures: HE/2, Gross/Micro L4 -------- Patient: Cata Nichole [id number] (Continued) -------- Signed (signature on file) Isai Sampson MD 12/20/23 1414 Normal [facility] MR shoulder RT wo conon 08-09 MR shoulder RT wo con [facility] [address] MRI Report Signed Patient: Cata Nichole MR#: [id number] : 1975 Acct:[id number] Age/Sex: 48 / F ADM Date: 08/19/23 Loc: [facility] Room: Type: [facility] Attending Dr: Maurisio Jones DO Copies [...] SHOULDER. Impression dictated by: Tin Martinez Jr., ReynaldoOKayla08/19/2023 2:20 PM Dictation Location: [place] [address] Transcribed By: [facility] 08/19/23 1420 Dictated By: Tin Martinez Jr, DO 08/19/23 1415 Signed By: 08/19/23 1420 Normal [facility] CT ABDOMEN PELVIS W AND [...] Isovue-300, 100 mL.. Comparison: CT abdomen pelvis, [facility], November 25, 2018.. Findings: Lungs: Lung [...] 2Von 06-10 XR shoulder BI min 2V [facility] [place] [address] [place] [address] XRay Report Signed Patient: Cata Nichole MR#: [id number] : 1975 Acct:[id number] Age/Sex: 48 / F ADM Date: 06/29/23 Loc: [facility] Room: Type: [facility] Attending Dr: Maurisio Jones DO Copies [...] Donald Jones M.D.06/29/2023 12:16 PM Dictation Location: [facility]12 Transcribed By: [facility] 06/29/23 1216 Dictated By: Donald Jones II, MD 06/29/231212 Signed By: 06/29/23 121 Normal [facility] XR shoulder BI min 2V [facility] [employer] Other XR shoulder BI min 2V [facility] [employer] Other XR shoulder BI min 2V [address] [place] [address] [employer] Other XR shoulder BI [place] 2[place] [address] [employer] Other XR shoulder BI min 2V XRay Report [facility] Other XR shoulder BI min 2V Signed [facility] Other XR shoulder BI min 2V Patient: Cata Nichole MR#: [id number] [facility] Other XR shoulder BI min 2V 2779 [facility] Other XR shoulder BI min 2V : 1975 Acct:[id number] [facility] Other XR shoulder BI min 2V Age/Sex: 48 / F ADM Date: 06/29/23 [facility] Other XR shoulder BI min 2V Loc: [facility] Room: Type: [facility] [employer] Other XR shoulder BI min 2V Attending Dr: Maurisio Jones DO [employer] Other XR shoulder BI min 2V Copies to: Maurisio Jones DO [employer] Other XR shoulder BI min 2V Ordering Provider: Maurisio Jones DO [employer] Other XR shoulder BI min 2V Date of Service: 06/29/23 [facility] Other XR shoulder BI min 2V XR/XR shoulder BI min 2V: Pain in right shoulder;Pain in left shoulder [facility] Other XR shoulder BI min 2V XR shoulder BI min 2V 06/29/2023 9:17 AM [employer] Other XR shoulder BI min 2V SIGNS AND SYMPTOMS: Bilateral shoulder pain [facility] Other XR shoulder BI min 2V PROTOCOL: Frontal, Grashey, scapular Y, and axillary views of the bilateral shoulders [employer] Other XR shoulder BI min 2V COMPARISON: None [facility] Other XR shoulder BI min 2V FINDINGS: [employer] Other XR shoulder BI min 2V The acromioclavicular joint and glenohumeral joint are preserved bilaterally. There is no fracture [employer] Other XR shoulder BI min 2V or dislocation. The visualized right and left hemithorax are grossly intact. [employer] Other XR shoulder BI min 2V XR/XR shoulder BI min 2V [employer] Other XR shoulder BI min 2V IMPRESSION: [employer] Other XR shoulder BI min 2V No acute bony injury or significant degenerative change. [employer] Other XR shoulder BI min 2V Impression dictated by: Donald Jones M.D.06/29/2023 12:16 PM [employer] Other XR shoulder BI min 2V Dictation Location: [place] [address] [employer] Other XR shoulder BI min 2V Transcribed By: COURTNEY 06/29/23 1216 [employer] Other XR shoulder BI min 2V Dictated By: Donald Jones II, MD 06/29/23 1213 [employer] Other XR shoulder BI min 2V Signed By: [employer] Other XR shoulder BI min 2V 06/29/23 121 [employer] Other XR pre/post mri xrayon 04-23 XR pre/post mri xray [facility] [place] [address] [place] [address] MRI Report Signed Patient: Cata Nichole MR#: [id number] : 1975 Acct:[id number] Age/Sex: 47 / F ADM Date: 04/23/23 Loc: MR Room: Type: [facility] Attending Dr: Zeny Kaiser MD Copies to: Zeny Kaiser MD Ordering Provider: Zeny Kaiser MD Date of Service: 04/23/23 MR/MR cervical spine wo con: further evaluation;Other spondylosis with radiculopathy, cer ([id number]) XR/XR pre/post mri xray: OBLIQUE ONLY MR [...] Donald Jones M.D.04/23/2023 3:50 PM Dictation Location: [place] [address] Transcribed By: [facility] 04/23/23 1550 Dictated By: Donald Jones II, MD 04/23/23 1549 Signed By: 04/23/23 1550 Normal [facility] XR cerv spine AP/LAT/FLX/EXT on 01-28-2023 XR cerv spine AP/LAT/FLX/EXT [facility] [employer] Other XR cerv spine AP/LAT/FLX/EXT [facility] [employer] Other XR cerv spine AP/LAT/FLX/EXT [address] [place] [address] [employer] Other XR cerv spine AP/LAT/FLX/[place] [address] [employer] Other XR cerv spine AP/LAT/FLX/EXT XRay Report [facility] Other XR cerv spine AP/LAT/FLX/EXT Signed [employer] Other XR cerv spine AP/LAT/FLX/EXT Patient: Cata Nichole MR#: [id number] [facility] Other XR cerv spine AP/LAT/FLX/EXT 2779 [employer] Other XR cerv spine AP/LAT/FLX/EXT : 1975 Acct:[id number] [employer] Other XR cerv spine AP/LAT/FLX/EXT Age/Sex: 47 / F ADM Date: 01/28/23 [facility] Other XR cerv spine AP/LAT/FLX/EXT Loc: [facility] Room: Type: [facility] Other XR cerv spine AP/LAT/FLX/EXT Attending Dr: Zeny Kaiser MD [employer] Other XR cerv spine AP/LAT/FLX/EXT Copies to: Zeny Kaiser MD [facility] Other XR cerv spine AP/LAT/FLX/EXT Ordering Provider: Zeny Kaiser MD [facility] Other XR cerv spine AP/LAT/FLX/EXT Date of Service: 01/28/23 [facility] Other XR cerv spine AP/LAT/FLX/EXT XR/XR cerv spine AP/LAT/FLX/EXT: PAIN [facility] Other XR cerv spine AP/LAT/FLX/EXT CERVICAL SPINE WITH FLEXION-EXTENSION VIEWS - 4 views [facility] Other XR cerv spine AP/LAT/FLX/EXT COMPARISON: None [facility] Other XR cerv spine AP/LAT/FLX/EXT CLINICAL DATA: Neck pain radiating to the right eye and down the left hand. No injury. [facility] Other XR cerv spine AP/LAT/FLX/EXT AP as well as lateral views in neutral, flexion and extension were obtained. There are no acute [employer] Other XR cerv spine AP/LAT/FLX/EXT fractures. No displacement or instability is seen. There is mild disc space narrowing at C6-7 [employer] Other XR cerv spine AP/LAT/FLX/EXT along with endplate spurring. There is additional minor plate spurring and facet sclerosis. No [employer] Other XR cerv spine AP/LAT/FLX/EXT prevertebral soft tissue swelling is identified. [facility] Other XR cerv spine AP/LAT/FLX/EXT XR/XR cerv spine AP/LAT/FLX/EXT [facility] Other XR cerv spine AP/LAT/FLX/EXT IMPRESSION: [employer] Other XR cerv spine AP/LAT/FLX/EXT MILD DEGENERATIVE CHANGE , PRIMARILY AT THE C6-7 LEVEL. [employer] Other XR cerv spine AP/LAT/FLX/EXT Impression dictated by: Pauline Fernandes M.D.01/28/2023 10:52 AM [facility] Other XR cerv spine AP/LAT/FLX/EXT Dictation Location: [place] [address] [employer] Other XR cerv spine AP/LAT/FLX/EXT Transcribed By: COURTNEY 01/28/23 1052 [employer] Other XR cerv spine AP/LAT/FLX/EXT Dictated By: Pauline Fernandes MD 01/28/23 1049 [facility] Other XR cerv spine AP/LAT/FLX/EXT Signed By: [employer] Other XR cerv spine AP/LAT/FLX/EXT 01/28/23 1052 [facility] Other XR cerv spine AP/LAT/FLX/EXT [facility] [place] [address] [place] [address] XRay Report Signed Patient: Cata Nichole MR#: [id number] : 1975 Acct:[id number] Age/Sex: 47 / F ADM Date: 01/28/23 Loc: [facility] Room: Type: [facility] Attending Dr: Zeny Kaiser MD Copies [...] Pauline Fernandes M.D.01/28/2023 10:52 AM Dictation Location: [place] [address] Transcribed By: [facility] 01/28/23 1052 Dictated By: Pauline Fernandes MD 01/28/23 1049 Signed By: 01/28/23 1052 Normal [facility] XR CHEST 2 Von 11-19-2022 XR CHEST 2 V EXAM: Chest x-ray HISTORY: . Cough . COMPARISON: 12/12/2021 TECHNIQUE: Frontal and lateral chest FINDINGS: Heart and vascularity are unremarkable. Lungs are expanded and free of focal infiltrates. No acute bony abnormality is appreciated. IMPRESSION: No acute heart or lung disease identified. Electronically authenticated by: JAZMINE LIAO Date: 2022-11-19 17:19 Normal [facility] XR shoulder RT min 2V*on XR shoulder RT min 2V* [facility] Other XR shoulder RT min 2V* [facility] [place] [facility] Other XR shoulder RT min 2V* [address] [facility] Other XR shoulder RT min 2V* [place] [address] [employer] Other XR shoulder RT min 2V* XRay Report [facility] Other XR shoulder RT min 2V* Signed [facility] Other XR shoulder RT min 2V* Patient: Cata Nichole MR#: [id number] [facility] Other XR shoulder RT min 2V* 2779 [facility] Other XR shoulder RT min 2V* : 1975 Acct:[id number] [employer] Other XR shoulder RT min 2V* Age/Sex: 47 / F ADM Date: 09/22/22 [facility] Other XR shoulder RT min 2V* Loc: [facility] Room: Type: [facility] [employer] Other XR shoulder RT min 2V* Attending Dr: Zeny Kaiser MD [facility] Other XR shoulder RT min 2V* Copies to: Zeny Kaiser MD [facility] Other XR shoulder RT min 2V* Ordering Provider: Zeny Kaiser MD [facility] Other XR shoulder RT min 2V* Date of Service: 09/22/22 [facility] Other XR shoulder RT min 2V* XR/XR shoulder RT min 2V*: Pain in right shoulder [facility] Other XR shoulder RT min 2V* RIGHT SHOULDER - - 4 views [facility] Other XR shoulder RT min 2V* CLINICAL HISTORY: Right anterolateral shoulder pain for one month. [facility] Other XR shoulder RT min 2V* COMPARISON: None [facility] Other XR shoulder RT min 2V* FINDINGS: [employer] Other XR shoulder RT min 2V* Minimal degenerative change of the AC joint without acute bony process. [employer] Other XR shoulder RT min 2V* XR/XR shoulder RT min 2V* [facility] Other XR shoulder RT min 2V* IMPRESSION: [employer] Other XR shoulder RT min 2V* MINIMAL DEGENERATIVE CHANGE INVOLVING THE RIGHT SHOULDER WITHOUT ACUTE BONY PROCESS. [facility] Other XR shoulder RT min 2V* Impression dictated by: Tin Martinez Jr., DKaylaOKayla09/22/2022 4:40 PM [facility] Other XR shoulder RT min 2V* Dictation Location: [place] [address] [employer] Other XR shoulder RT min 2V* Transcribed By: P[facility] 09/22/22 1640 [employer] Other XR shoulder RT min 2V* Dictated By: Tin Martinez Jr, DO 09/22/22 1639 [facility] Other XR shoulder RT min 2V* Signed By: [facility] Other XR shoulder RT min 2V* 09/22/22 [facility] Other RESPIRATORY PANEL PLUSon Adenovirus Not detected Normal NOT DETECTED [facility] Comment on above: Performed By: #### R SPLUS #### [facility] [address] [place] [address] Dr. Aidan Bolanos Parapertusis Not detected Normal NOT DETECTED [facility] Comment on above: Performed By: #### R SPLUS #### [facility] [address] [place] [address] Dr. Aidan Bolanos Pertussis Not detected Normal NOT DETECTED [facility] Comment on above: Performed By: #### R SPLUS #### [facility] [address] [place] [address] Dr. Aidan Mccain Chlamydia Pneumoniae Not detected Normal NOT DETECTED [facility] Comment on above: Performed By: #### R SPLUS #### [facility] [address] [place] [address] Dr. Aidan Mccain Coronavirus 229E Not detected Normal NOT DETECTED [facility] Comment on above: Performed By: #### R SPLUS #### [facility] [address] [place] [address] Dr. Aidan Mccain Coronavirus HKU1 Not detected Normal NOT DETECTED [facility] Comment on above: Performed By: #### R SPLUS #### [facility] [address] [place] [address] Dr. Aidan Mccain Coronavirus NL63 Not detected Normal NOT DETECTED [facility] Comment on above: Performed By: #### R SPLUS #### [facility] [address] [place] [address] Dr. Aidan Mccain Coronavirus OC43 Not detected Normal NOT DETECTED [facility] Comment on above: Performed By: #### R SPLUS #### [facility] [address] [place] [address] Dr. Aidan Mccain Influenza A H1 2009 Not detected Normal NOT DETECTED [facility] Comment on above: Performed By: #### R SPLUS #### [facility] [address] [place] [address] Dr. Aidan Mccain Influenza A H3 Not detected Normal NOT DETECTED [facility] Comment on above: Performed By: #### R SPLUS #### [facility] [address] [place] [address] Dr. Aidan Mccain Influenza B Not detected Normal NOT DETECTED [facility] Comment on above: Performed By: #### R SPLUS #### [facility] [address] [place] [address] Dr. Aidan Mccain Metapneumovirus Not detected Normal NOT DETECTED [facility] Comment on above: Performed By: #### R SPLUS #### [facility] [address] [place] [address] Dr. Aidan Mccain Mycoplas. Pneumoniae Not detected Normal NOT DETECTED [facility] Comment on above: Performed By: #### R SPLUS #### [facility] [address] [place] [address] Dr. Aidan Mccain Parainfluenza 1 Not detected Normal NOT DETECTED [facility] Comment on above: Performed By: #### R SPLUS #### [facility] [address] [place] [address] Dr. Aidan Mccain Parainfluenza 2 Not detected Normal NOT DETECTED [facility] Comment on above: Performed By: #### R SPLUS #### [facility] [address] [place] [address] Dr. Aidan Mccain Parainfluenza 3 Not detected Normal NOT DETECTED [facility] Comment on above: Performed By: #### R SPLUS #### [facility] [address] [place] [address] Dr. Aidan Mccain Parainfluenza 4 Not detected Normal NOT DETECTED [facility] Comment on above: Performed By: #### R SPLUS #### [facility] [address] [place] [address] Dr. Aidan Mccain Rhino/Enterovirus Not detected Normal NOT DETECTED [facility] Comment on above: Performed By: #### R SPLUS #### [facility] [address] [place] [address] Dr. Aidan Mccain RP2 Header 1 RESPIRATORY PANEL: VIRUSES Normal [facility] Comment on above: Performed By: #### R SPLUS #### [facility] [address] [place] [address] Dr. Aidan Mccain RP2 Header 2 RESPIRATORY PANEL: BACTERIA Normal [facility] Comment on above: Performed By: #### R SPLUS #### [facility] [address] [place] [address] Dr. Aidan Mccain RSV Not detected Normal NOT DETECTED [facility] Comment on above: Performed By: #### R SPLUS #### [facility] [address] [place] [address] Dr. Aidan Mccain SARS-CoV-2 (COVID-19) RNA ELEUTERIO+probe Ql (Unsp spec) Not detected Normal NOT DETECTED [facility] Comment on above: Performed By: #### R SPLUS #### [facility] [address] [place] [address] Dr. Aidan Mccain XR LSPINE 2_3 VIEWSon [...] JAZMINE HARVEY Date: 2022-06-27 18:37 Normal [facility] CULTURE URINEon 02-22-2022 CULTURE URINE Culture Observations : HEAVY GROWTH OF MIXED GENITAL [place]. NO POTENTIAL PATHOGENS SEEN. Normal The [facility] Comment on above: Performed By: #### U RCX #### [facility] [address] [place] [address] Dr. Aidan Mccain ER URINE PROFILEon 2 Bilirubin Ql (U) Negative Normal NEGATIVE [facility] Comment on above: Performed By: #### CARLOS ENRIQUE WHEELER #### [facility] [address] [place] [address] Dr. Aidan Mccain Clarity (U) CLEAR Normal CLEAR [facility] Comment on above: Performed By: #### CARLOS ENRIQUE WHEELER #### [facility] [address] [place] [address] Dr. Aidan Mccain Color (U) LT. YELLOW Normal YELLOW [facility] Comment on above: Performed By: #### CARLOS ENRIQUE WHEELER #### [facility] [address] [place] [address] Dr. Aidan MARIE A micrscopic examination will be performed if indicated. Normal [facility] Comment on above: Performed By: #### Mariaelena CHUNG UMICRO #### [facility] [address] [place] [address] Dr. Aidan Mccain Glucose Ql (U) Negative Normal NEGATIVE [facility] Comment on above: Performed By: #### E SHELDON, UMICRO #### [facility] [address] [address] [address] Aidan Mccain Hemoglobin Ql (U) Negative Normal NEGATIVE [facility] Comment on above: Performed By: #### Mariaelena CHUNG UMICRO #### [facility] [address] [place] [address] Dr. Aidan Mccain Ketones Ql (U) Negative Normal NEGATIVE [facility] Comment on above: Performed By: #### Mariaelena CHUNG UMICRO #### [facility] [address] [place] [address] Dr. Aidan Mccain LEUKOCYTES SMALL Abnormal NEGATIVE [facility] Comment on above: Performed By: #### Mariaelena CHUNG UMICRO #### [facility] [address] [place] [address] Dr. Aidan Mccain Nitrite Ql (U) Negative Normal NEGATIVE [facility] Comment on above: Performed By: #### Mariaelena CHUNG UMICRO #### [facility] [address] [place] [address] Dr. Aidan Mccain pH (U) 6.0 [pH] Normal 5-9 [facility] Comment on above: Performed By: #### Mariaelena CHUNG UMICRO #### [facility] [address] [place] [address] Dr. Aidan Mccain SPEC GRAVITY 1.020 Normal 1.005-<=1.025 [facility] Comment on above: Performed By: #### Mariaelena CHUNG UMICRO #### [facility] [address] [place] [address] Dr. Aidan Mccain UA PROTEIN Negative Normal NEGATIVE/ TRACE [facility] Comment on above: Performed By: #### Mariaelena CHUNG UMICRO #### [facility] [address] [place] [address] Dr. Aidan Mccain UR MICRO IND INDICATED Normal [facility] Comment on above: Performed By: #### E SHELDON, UMICRO #### [facility] [address] [place] [address] Dr. Aidan Mccain Urobilinogen Qn (U) 0.2 {Sami'U}/dL Normal 0.2 - 1. 0 [facility] Comment on above: Performed By: #### E SHELDON, UMICRO #### [facility] [address] [place] [address] Dr. Aidan Mccain URINE MICROSCOPIC ONLYon BACTERIA TRACE Abnormal NONE SEEN [facility] Comment on above: Performed By: #### Mariaelena CHUNG, UMICRO #### [facility] [address] [place] [address] Dr. Aidan Mccain Bacteria identified Cx Nom (U) INDICATED Normal [facility] Comment on above: Performed By: #### Mariaelena CHUNG UMICRO #### [facility] [address] [place] [address] Dr. Aidan Mccain CAST NONE SEEN Normal NONE SEEN [facility] Comment on above: Performed By: #### Mariaelena CHUNG UMICRO #### [facility] [address] [place] [address] Dr. Aidan Mccain Crystals LM Nom (Urine sed) NONE SEEN Normal NONE SEEN [facility] Comment on above: Performed By: #### Mariaelena CHUNG UMICRO #### [facility] [address] [place] [address] Dr. Aidan Mccain Epithelial cells LM Ql (Urine sed) MANY Abnormal NONE SEEN /RARE [facility] Comment on above: Performed By: #### Mariaelena CHUNG UMICRO #### [facility] [address] [place] [address] Dr. Aidan Mccain MUCOUS NONE SEEN Normal NONE SEEN [facility] Comment on above: Performed By: #### Mariaelena CHUNG UMICRO #### [facility] [address] [place] [address] Dr. Aidan Mccain RBC 2-5 Abnormal 0-2 [facility] Comment on above: Performed By: #### E CARLOS ENRIQUE CHUNG #### [facility] [address] [place], [place] [address] Dr. Aidan Mccain WBC 5-10 Abnormal NONE SEEN [facility] Comment on above: Performed By: #### E CARLOS ENRIQUE CHUNG #### [facility] [id number] Aidan Mccain MRI LSPINE WO CONon [...] SKYLER COLUNGA Date: 2022-01-23 17:37 Normal [facility] MAMM SCREEN 3D DAYANA CADon 01-20-2022 MG MAMM SCREEN 3D DAYANA CAD Patient: CATA NICHOLE Exam Date: 01/20/2022 : 1975 Gender:F Ordering : DR EDUARDO MAN M.D. Admission #: [id number] Family : DR WHEELEREmilee BERGMAN . Order #: [id number] CLICK HERE TO VIEW EXAM RADIOLOGY REPORT [...] lupus cancer at age 70. LOCATION: [facility] BREAST COMPOSITION: Extremely dense, which lowers [...] Colunga M.D. on 01/20/2022 at 14:48 Normal [facility] XR CHEST 2 Von 12-12-2021 [...] by: JUNO CORTES Date: 2021-12-12 15:09 Normal [facility] Vital Signs Date Time Vital Sign Value Performing Clinician Facility 12-17-2023 10:55-0400 Diastolic blood pressure 66 mm[Hg] II Eduardo Man Work Phone: [facility] 12-17-2023 10:55-0400 Heart rate 71 /min II Eduardo Man Work Phone: [facility] 12-17-2023 10:55-0400 Respiratory rate 16 /min II Eduardo Man Work Phone: [facility] 12-17-2023 10:55-0400 SaO2% (BldA) [Mass fraction] 100 % II Eduardo Man Work Phone: [facility] 12-17-2023 10:55-0400 Systolic blood pressure 129 mm[Hg] II Eduardo Man Work Phone: [facility] 12-17-2023 08:26-0400 Body height 156.21 cm II Eduardo Man Work Phone: [facility] 12-17-2023 08:26-0400 Body weight 50 kg II Eduardo Man Work Phone: [facility] 11-25-2023 09:47-0400 Body height 157.48 cm [facility] 11-25-2023 09:47-0400 Body mass index (BMI) [Ratio] 18.6 kg/m2 [facility] 11-25-2023 09:47-0400 Body weight 46.26 kg [facility] 11-25-2023 09:47-0400 Diastolic blood pressure 77 mm[Hg] [facility] 11-25-2023 09:47-0400 Heart rate 84 /min [facility] 11-25-2023 09:47-0400 Systolic blood pressure 108 mm[Hg] [facility] 09-15-2023 08:39-0500 Body mass index (BMI) [Ratio] 20.6 kg/m2 Milagro Palomares [employer] Work Phone: [facility] 09-15-2023 08:39-0500 Body weight 49.44 kg Milagro Palomares [employer] Work Phone: [facility] 09-15-2023 08:39-0500 Diastolic blood pressure 82 mm[Hg] Milagro Palomares [employer] Work Phone: [facility] 09-15-2023 08:39-0500 Heart rate 89 /min Milagro Palomares [employer] Work Phone: [facility] 09-15-2023 08:39-0500 SaO2% (BldA) [Mass fraction] 98 % Milagro Palomares [employer] Work Phone: [facility] [employer] 09-15-2023 08:39-0500 Systolic blood pressure 118 mm[Hg] Milagro Palomares [employer] Work Phone: [facility] [employer] 07-08-2023 14:40-0500 Body height 157.48 cm Chapito Brush Other [facility] Other 07-08-2023 14:40-0500 Body mass index (BMI) [Ratio] 20.12 kg/m2 Chapito Brush Other [facility] Other 07-08-2023 14:40-0500 Body weight 49.9 kg Chapito Brush Other [facility] Other 06-29-2023 09:00-0500 Body height 157.48 cm Maurisio Jones Other [facility] Other 06-29-2023 09:00-0500 Body mass index (BMI) [Ratio] 21.03 kg/m2 Maurisio Jones Other [facility] Other 06-29-2023 09:00-0500 Body weight 52.16 kg Maurisio Jones Other [facility] Other 08-18-2022 15:40-0500 Body height 157.48 cm Chapito Brush Other [facility] Other 08-18-2022 15:40-0500 Body mass index (BMI) [Ratio] 20.99 kg/m2 Chapito Brush Other [facility] Other 08-18-2022 15:40-0500 Body weight 52.07 kg Chapito Brush Other [facility] Other 08-18-2022 15:40-0500 Diastolic blood pressure 82 mm[Hg] Chapito Brush Other [facility] Other 08-18-2022 15:40-0500 Systolic blood pressure 130 mm[Hg] Chapito Brush Other [facility] Other 06-02-2022 14:00-0400 Body height 157.48 cm Chapito Brush Other [facility] Other 06-02-2022 14:00-0400 Body mass index (BMI) [Ratio] 21.03 kg/m2 Chapito Brush Other [facility] Other 06-02-2022 14:00-0400 Body weight 52.16 kg Chapito Brush Other [facility] Other 04-28-2022 16:00-0400 Body height 157.48 cm Zeny Kaiser Other [facility] Other 04-28-2022 16:00-0400 Body mass index (BMI) [Ratio] 21.03 kg/m2 Zeny Kaiser Other [facility] Other 04-28-2022 16:00-0400 Body weight 52.16 kg Zeny Kaiser Other [facility] Other 03-10-2022 17:00-0400 Body height 157.48 cm Chapito Brush Other [facility] Other 03-10-2022 17:00-0400 Body mass index (BMI) [Ratio] 21.03 kg/m2 Chapito Brush Other [facility] Other 03-10-2022 17:00-0400 Body weight 52.16 kg Chapito Brush Other [facility] Other Encounters Encounter Date Encounter Type Care Provider Facility Start: 05-04-2024 ambulatory JAZMINE AVENDAÑO Not Availa ble Start: 05-02-2024 End: 05-02-2024 ambulatory PAULINE JUAREZ Not Available Start: 04-27-2024 End: 04-27-2024 ambulatory [facility] Work Phone: Start: 04-27-2024 End: 04-27-2024 Patient encounter procedure [facility] Physician [facility] Pain Management Work Phone: Start: 03-29-2024 End: 03-29-2024 ambulatory [facility] Work Phone: Start: 03-29-2024 End: 03-29-2024 Patient encounter procedure [facility] Physician [facility] Work Phone: Start: 03-29-2024 Non-patient / Non-visit [facility] Physician [facility] Work Phone: Start: 03-15-2024 End: 03-15-2024 ambulatory II Eduardo Man Work Phone: [facility] Work Phone: Start: 03-15-2024 End: 03-15-2024 Patient encounter procedure II Eduardo Man Work Phone: [facility] Physician [facility] Work Phone: Start: 03-15-2024 Non-patient / Non-visit [facility] Physician [facility] Work Phone: Start: 02-24-2024 End: 02-24-2024 ambulatory ABRAHAM JONES Not Available Start: 02-08-2024 End: 02-08-2024 ambulatory II Eduardo Man Work Phone: [facility] Work Phone: Start: 02-08-2024 End: 02-08-2024 Patient encounter procedure II Eduardo Man Work Phone: [facility] Pain Management [facility] Work Phone: Start: 01-30-2024 Non-patient / Non-visit [facility] Work Phone: Start: 01-19-2024 End: 01-19-2024 ambulatory EMILE EDITH Not Available Start: 01-17-2024 End: 01-17-2024 ambulatory PAULINE ALVARESZOEY Not Available Start: 01-06-2024 End: 01-06-2024 ambulatory ALICIA WAGONER Not Available Start: 01-04-2024 End: 01-04-2024 ambulatory EMILE EDITH Not Available Start: 12-17-2023 End: 12-17-2023 ambulatory Imad Asaad Facility:[facility] Start: 12-17-2023 Non-patient / Non-visit II Eduardo Man Work Phone: [facility] Work Phone: Start: 12-17-2023 End: 12-17-2023 Admission to same day surgery center II Eduardo Man Work Phone: [facility] Work Phone: Start: 12-17-2023 End: 12-17-2023 ambulatory II Eduardo Man Work Phone: [facility] Work Phone: Start: 12-07-2023 End: 12-07-2023 ambulatory JACKLYN BONE Not Available Start: 12-02-2023 End: 12-02-2023 ambulatory EDUARDO MAN Not Available Start: 11-25-2023 End: 11-25-2023 ambulatory [facility] Work Phone: Start: 11-25-2023 End: 11-25-2023 Patient encounter procedure [facility] Work Phone: Start: 09-15-2023 Chart abstracting Milagro aguilar [employer] Work Phone: [facility] Start: 09-15-2023 End: 09-15-2023 Office outpatient visit 25 minutes Milagro Palomares [employer] Work Phone: [facility] Comment on above: Chronic idiopathic c onstipation (Primary Dx) Start: 09-15-2023 End: 09-15-2023 ambulatory MILAGRO PALOMARES Not Available Start: 09-02-2023 End: 09-02-2023 ambulatory Maurisio Jones Other [facility] Other Start: 09-02-2023 Office outpatient visit 25 minutes Maurisio Jones [facility] Start: 08-19-2023 End: 08-19-2023 ambulatory Maurisio Jones Facility:[facility] Start: 08-19-2023 End: 08-19-2023 ambulatory II Eduardo Man Work Phone: [facility] Work Phone: Start: 08-19-2023 End: 08-19-2023 Patient encounter procedure II Eduardo Man Work Phone: [facility] [address] Work Phone: Start: 08-16-2023 End: 08-16-2023 ambulatory MILAGRO PALOMARES Not Available Start: 08-04-2023 End: 08-04-2023 ambulatory MILAGRO PALOMARES Not Available Start: 07-15-2023 End: 07-15-2023 ambulatory Maurisio Jones Other [facility] Other Start: 07-15-2023 Office outpatient visit 25 minutes Maurisio Jones [facility] Start: 07-13-2023 End: 07-13-2023 ambulatory Zeny Kaiser Other [facility] Other Start: 07-13-2023 Office outpatient visit 25 minutes Zeny Kaiser [facility] Pain [facility] [place] Start: 07-08-2023 End: 07-08-2023 ambulatory Chapito Brush Other [facility] Other Start: 07-08-2023 Office outpatient visit 15 minutes Chapito Brush [facility] Start: 07-05-2023 (Procedure) Kalen Olivier [facility] Start: 07-05-2023 End: 07-05-2023 ambulatory Zeny Kaiser Other [facility] Other Start: 06-29-2023 Office outpatient ne w 45 minutes Maurisio Jones [facility] Start: 06-29-2023 End: 06-29-2023 ambulatory Maurisio Jones [facility] Other Start: 06-29-2023 End: 06-29-2023 Patient encounter procedure II Eduardo Man Work Phone: [facility] Start: 06-17-2023 End: 06-17-2023 ambulatory Zeny Kaiser Other [employer] Other Start: 06-17-2023 Office outpatient visit 25 minutes Zeny Kaiser [facility] [place] Start: 05-06-2023 End: 05-06-2023 ambulatory Zeny Kaiser Other [place] [employer] Other Start: 05-06-2023 Office outpatient visit 15 minutes Zeny Kaiser [facility] [place] Start: 04-23-2023 End: 04-23-2023 ambulatory Zeny Kaiser Facility:[facility] Start: 04-23-2023 End: 04-23-2023 ambulatory II Eduardo Man Work Phone: [facility] Work Phone: Start: 04-23-2023 End: 04-23-2023 Patient encounter procedure II Eduardo Donovan Work Phone: [facility] [place] Work Phone: Start: 09-06-2023 (Procedure) Kalen Kaiser [facility] Start: 04-14-2023 End: 04-14-2023 ambulatory Zeny Kaiser Other [facility] Other Start: 04-01-2023 End: 04-01-2023 ambulatory Zeny Kaiser Other [facility] Other Start: 04-01-2023 Telephone encounter Zeny Méndez [facility] Start: 03-30-2023 End: 03-30-2023 ambulatory Zeny Kaiser Other [facility] Other Start: 03-30-2023 Office outpatient visit 25 minutes Zeny Kaiser [facility] [place] Start: 03-15-2023 End: 03-15-2023 ambulatory Zeny Kaiser Other [facility] Other Start: 03-15-2023 Telephone encounter Zeny Kaiser YOSELIN [facility] Start: 02-18-2023 End: 02-18-2023 ambulatory Zeny Kaiser Other [employer] Other Start: 02-18-2023 Office outpatient visit 15 minutes Zeny Kaiser [facility] [place] Start: 01-28-2023 Office outpatient visit 25 minutes Zeny Carder [facility] [place] Start: 01-28-2023 End: 01-28-2023 ambulatory II Eduardo Man Work Phone: [employer] Other Start: 01-28-2023 End: 01-28-2023 Patient encounter procedure II Eduardo Man Work Phone: [facility] Start: 01-06-2023 (Procedure) Kalen Kaiser [facility] Start: 01-06-2023 End: 01-06-2023 ambulatory Zeny Kaiser Other [facility] Other Start: 12-21-2022 End: 12-21-2022 ambulatory Zeny Kaiser Other [facility] Other Start: 12-21-2022 Office outpatient visit 25 minutes Zeny Kaiser [facility] [place] Start: 11-19-2022 End: 11-20-[address] PAULINE JUAREZ Facility: Start: 11-02-2022 End: 11-02-2022 ambulatory Zeny Kaiser Other [employer] Other Start: 11-02-2022 Telephone encounter Zeny Kaiser [facility] Start: 09-22-2022 End: 09-22-2022 Patient encounter procedure II Eduardo Man Work Phone: [facility] Start: 09-22-2022 End: 09-22-2022 ambulatory II Eduardo Man Work Phone: [facility] Work Phone: Start: 09-22-2022 Office outpatient visit 15 minutes Zeny Kaiser [facility] [place] Start: 08-18-2022 End: 08-18-2022 ambulatory Chapito Brush Other [facility] Other Start: 08-18-2022 Office outpatient visit 15 minutes Chapito Brush [facility] Start: 08-11-2022 End: 08-11-2022 ambulatory Zeny Kaiser Other [facility] Other Start: 08-11-2022 Office outpatient visit 15 minutes Zeny Kaiser [facility] [place] Start: 07-20-2022 (Procedure) Short Zeny Kaiser [facility] Start: 07-20-2022 End: 07-20-2022 ambulatory Zeny Kaiser Other [facility] Other Start: 07-06-2022 (Procedure) Short Zeny Kaiser [facility] Start: 07-06-2022 End: 07-06-2022 ambulatory Zeny Kaiser Other [facility] Other Start: 06-29-2022 End: 06-29-[address] PAULINE JUAREZ Facility:[facility] Start: 06-27-2022 End: 06-27-2022 ambulatory SERGIO RAE Facility:[facility] Start: 06-22-2022 End: 06-22-2022 ambulatory Zeny Kaiser Other [facility] Other Start: 06-22-2022 Office outpatient visit 25 minutes Zeny Awilda [facility] [place] Start: 06-02-2022 End: 06-02-2022 ambulatory Chapito Brush Other [facility] Other Start: 06-02-2022 Office outpatient visit 15 minutes Chapito Brush [facility] Start: 05-25-2022 End: 05-25-2022 ambulatory Zeny Cardallen Other [employer] Other Start: 05-25-2022 Telephone encounter Zeny WYATT [facility] [place] Start: 04-30-2022 End: 04-30-2022 ambulatory Zeny Kaiser Other [facility] Other Start: 04-30-2022 Telephone encounter Zeny Cardallen [facility] Start: 04-28-2022 End: 04-28-2022 ambulatory Zeny Kaiser Other [facility] Other Start: 04-28-2022 Office consultation new/estab patient 60 min Zeny Kaiser [facility] [place] Start: 03-18-2022 End: 03-18-2022 ambulatory Chapito Brush Other [facility] Other Start: 03-18-2022 Telephone encounter Chapito Brush [facility] Start: 03-10-2022 End: 03-10-2022 Patient encounter procedure II Eduardo Man Work Phone: [facility] Start: 03-10-2022 End: 03-10-2022 ambulatory Chapito Gonsalo Other [facility] Other Start: 03-10-2022 Office outpatient ne w 30 minutes Chapito Gonsalo [facility] Start: 02-27-2022 End: 02-28-2022 ambulatory BHASKAR [...] in Cervix by Cyto stain Milagro Palomares [employer] Work Phone: Start: 01-23-2019 Colonoscopy Milagro Palomares [employer] Work Phone: Start: 09-10-2015 H/O: hysterectomy History of partial hysterectomy Milagro Palomares NP Work Phone: Plan of Treatment Date Care Activity Detail Author Start: 01-23-2029 Screening for malign ant neoplasm of colon [facility] Start: 02-06-2024 Influenza vaccination Influenza Vacc ine (#1) [facility] Comment on above: Postponed from 04/09 (Patient Refused) Start: 12-17-2023 [facility] Start: 09-15-2023 End: 09-15-2023 Patient encounter procedure 09/15/2023 8:30 AM EST Office Visit [facility] [address] [facility] [address] [place] [id number] Milagro Palomares [employer] [address] [facility] [address] [place] [address] [facility] Start: 07-18-2023 Screening for malign ant neoplasm of cervix [facility] Start: 01-20-2023 Screening for malign ant neoplasm of breast Mammogram [facility] Start: 2007 Screening for malign ant neoplasm of cervix HPV/Cotest [facility] Start: 1977 Screening for malign ant neoplasm of colon [facility] Patient Education Colon polyps Hemorrhoids (DC) Know your Meds [facility] Work Phone: [facility] Immunizations Immunization Date Immunization Notes Care Provider Fa cilibianka 05-28-2021 COVID-19 mRNA, Comirnaty (Pfizer) OTILIA Man Work Phone: [facility] 09-18-2020 COVID-19 mRNA, Comirnaty (Pfizer) OTILIA Man Work Phone: [facility] 08-28-2020 COVID-19 mRNA, Comirnaty (Pfizer) OTILIA Man Work Phone: [facility] 06-22-2014 seasonal influenza, intradermal, preservative free Milagro Wolcott [employer] Work Phone: [facility] 06-22-2014 influenza virus vaccine, unspecified formulation Milagro Palomares [employer] Work Phone: [facility] 01-28-1999 measles, mumps and rubella virus vaccine Milagro Marielle [employer] Work Phone: [facility] Payers Date Payer Category Payer Self-pay [id number] 2022 Unknown BCBS BCBS xxxxxx [id number] 2022-Present [phone] [address] [place] [address] [id number] 1975 Unknown [id number] 2.16.840.1.150815.3.579.2.5 93 1975 Unknown [id number] 2.16.840.1.821618.3.579.2.5 93 1975 Unknown [id number] 2.16.840.1.843105.3.579.2.5 93 1977 Unknown [id number] 2.16.840.1.731194.3.579.2.5 93 1977 Unknown [id number] 2.16.840.1.606172.3.579.2.5 93 1977 Unknown [id number] 2.16.840.1.078134.3.579.2.5 93 1977 Unknown [id number] 2.16.840.1.327996.3.579.2.5 93 1977 Unknown [id number] 2.16.840.1.120497.3.579.2.5 93 1977 Unknown [id number] 2.16.840.1.012869.3.579.2.5 93 1977 Unknown [id number] 2.16.840.1.170945.3.579.2.1 259 1977 Unknown [id number] 2.16.840.1.661931.3.579.2.1 259 1977 Unknown [id number] 2.16.840.1.056665.3.579.2.1 259 1977 Unknown [id number] 2.16.840.1.196500.3.579.2.1 259 1977 Unknown [id number] 2.16.840.1.144647.3.579.2.1 259 1977 Unknown [id number] 2.16.840.1.634923.3.579.2.1 259 1977 Unknown [id number] 2.16.840.1.873623.3.579.2.1 259 1977 Unknown [id number] 2.16.840.1.080480.3.579.2.1 259 1977 Unknown [id number] 2.16.840.1.222244.3.579.2.1 259 1977 Unknown [id number] 2.16.840.1.225097.3.579.2.1 259 1977 Unknown [id number] 2.16.840.1.057854.3.579.2.1 259 1977 Unknown [id number] 1977 Unknown [id number] 259 1959 [employer] Blue Shield [id number]. 1959 [employer] Blue Shield [id number] 1959 Unknown [id number] 1959 Unknown [id number] 1959 Unknown [id number] Private Health Insurance [id number] Unknown [employer] [id number] Unknown [id number] 31 Unknown [id number] 31 Unknown [id number] [id number] 31 Unknown [id number] 31 Unknown [id number] 31 Social History Date Type Detail Facility Start: 08-04-2023 End: 09-15-2023 Sex Assigned At [facility] Work Phone: Start: 01-23-2019 End: 12-17-2023 Tobacco smoking status IAIS Smoker (finding) [facility] Start: 1975 Sex Assigned At Female F [facility] Start: 04-22-2023 Tobacco smoking stat us [facility] Smokes tobacco daily [facility] History of [...] & Type Note Facility 12-17-2023 Procedure note [facility] 11-25-2023 Evaluation note Authored November 25, [...] goal of 1 bowel movement a day. [facility] Work Phone: 1(949) 328-390602-07-2024 History of Present illness Narrative* Milagro Palomares, SEBASTIAN - 09/15/2023 8:30 AM EST Subjective Patient ID: Cata Nichole is a 48 y.o. female who presents [...] mg) before bedtime. 200 capsule 3 HYDROcodone-acetaminophen ([place]) 5-325 MG tablet Take 1 tablet by [...] No follow-ups on file. documented in this encounterWestern [facility] [id number] Evaluation note* Encounter Date Diagnosis Assessment Notes [...] of any breach, fraud, or malicious third constitution party actors and no personal patient information was compromised. [facility] Other 12-07-2023 Evaluation note* Encounter Date Diagnosis [...] Jul, Other chronic pain (ICD-10 - G89.29) [facility] Other 12-05-2023 Evaluation note* Encounter Date Diagnosis [...] note writ ten by Polo Andino MA, Industrial Engineering Technician. Edited and approved by Dr. Zeny Kaiser MD. [facility] Other 11-30-2023 Evaluation note* Encounter Date Diagnosis [...] Jun, Spondylolisthesis, lumbosacral region (ICD-10 - M43.17) [facility] Other 11-21-2023 Evaluation note* Encounter Date Diagnosis [...] Jun, Other chronic pain (ICD-10 - G89.29) [facility] Other 11-09-2023 Evaluation note* Encounter Date Diagnosis [...] note writ ten by Polo Andino MA, Industrial Engineering Technician. Edited and approved by Dr. Zeny Kaiser MD. [facility] Other 09-28-2023 Evaluation note* Encounter Date Diagnosis [...] note writ ten by Andreea Colon LPN, Industrial Engineering Technician. Edited and approved by Dr. Zeny Kaiser MD. [facility] Other 08-22-2023 Evaluation note* Encounter Date Diagnosis [...] note writ ten by Andreea Colon LPN, Industrial Engineering Technician. Edited and approved by Dr. Zeny Kaiser MD. [facility] Other 07-13-2023 Evaluation note* Encounter Date Diagnosis [...] note writ ten by Polo Andino MA, Industrial Engineering Technician. Edited and approved by Dr. Zeny Kaiser MD. [facility] Other 06-22-2023 Evaluation note* Encounter Date Diagnosis [...] note writ ten by Polo Andino MA, Industrial Engineering Technician. Edited and approved by Dr. Zeny Kaiser MD. [facility] Other 05-15-2023 Evaluation note* Encounter Date Diagnosis [...] note writ ten by Andreea Colon LPN, Industrial Engineering Technician. Edited and approved by Dr. Zeny Kaiser MD. [facility] Other 02-14-2023 Evaluation note* Encounter Date Diagnosis [...] note writ ten by Andreea Colon LPN, Industrial Engineering Technician. Edited and approved by Dr. Zeny Kaiser MD. [facility] Other 01-10-2023 Evaluation note* Encounter Date Diagnosis [...] Aug, Spondylolisthesis, lumbosacral region (ICD-10 - M43.17) [facility] Other 01-03-2023 Evaluation note* Encounter Date Diagnosis [...] note writ ten by Andreea Colon LPN, Industrial Engineering Technician. Edited and approved by Dr. Zeny Kaiser MD. [facility] Other 11-14-2022 Evaluation note* Encounter Date Diagnosis [...] note writ ten by Andreea Colon LPN, Industrial Engineering Technician. Edited and approved by Dr. Zeny Kaiser MD. [facility] Other 10-25-2022 Evaluation note* Encounter Date Diagnosis [...] and sacroiliac pain and takes Valium and [place] chronically as well as gabapentin 400 mg p.o. twice daily. Her back is feeling better after some injections that she got. I recommend that she continues to get these injections and that she at least taper down her gabapentin to half the amount. She then needs to begin working on tapering down [place] and Valium. At this point she is not a good operative candidate with this medication mix. I will see her back at the beginning of the year to see how she is doing May, Spondylolisthesis, lumbosacral region (ICD-10 - M43.17) [facility] Other 09-20-2022 Evaluation note* Encounter Date Diagnosis [...] note writ ten by Andreea Colon LPN, Industrial Engineering Technician. Edited and approved by Dr. Zeny Kaiser [...] negative findings were considered in medical decision-making. [facility] Other 08-02-2022 Evaluation note* Encounter Date Diagnosis [...] with sciatica, left side (ICD-10 - M54.42) [facility] Other 01-04-2022 NotePROCEDURE: GE lightspeed VCT 64, 5.0 mm slice axial images [...] signed by Tin Islas on 08/12/2021 [id number] [id number] History general Narrative - Reported* Type Description Date Medical History asthma Medical History allergic rhinitis Medical History 06/27/13 Capsule endoscopy-rapid transit Medical History 06/07/13 Colonoscopy-tubular jazmin noma Medical History 04/28/13 EGD/Ramsay-hiatal hernia, no acid reflux Surgical History Partial hysterectomy Surgical History blood transfusion Surgical History Back Surgery 2014 Hospitalization History See above [place] [employer] Other evaluation noteNo [facility] [employer] Other evaluation noteNo assessment information available [facility] Work Phone: Evaluation note* Diagnosis Chronic idiopathic constipation- Primary Unspecified constipation documented in this [facility]* Diagnosis Onset Date Resolution Status Constipation acute [facility] Work Phone: Evaluation note* Diagnosis Onset Date Resolution Status 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 Arthritis of lumbosacral spine acute Other chronic pain acute Other spondylosis with radiculopathy, cervical region acute [facility] Work Phone: Evaluation note* Diagnosis Onset Date Resolution Status 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 for 24 hours. - [...] months -Follow up with PCP. -Office number [phone]. [facility] Work Phone: Reason for referral (narrative)* Consultation (Routine) - Authorized Specialty Diagnoses / Procedures Referred By Teto t Referred To Contact Gastroenterology Diagnoses Chronic idiopathic constipation Procedures ID OFFICE/OUTPATIENT [facility] 60 MINUTES Milagro Palomares NP [address] [facility] [address] [place] [address] Ankur Benavides MD [address] [facility] [address] [place] [address] Referral ID Status Reason Start Date Expiration Date Visits Requested Visits Authorized [id number] Authorized Specialty Services Required 09/15/2023 03/13/2024 [facility] Healthcare Summary Purpose Family History No Family [...] Left lumbar radiculo prema (M54.16) Referral Organization [facility] Ne urosurgery Referring Provider First Name Chapito Referring Provider Last Name Gonsalo Referring Provider Specialty Neurologica l Surgery Referred Organization [facility] Referred Address ,[place], [place],[address] Referred Provider Specialty Physical The rapist Referral Priority Routine Reason DAYANA shoulder pa in, please evaluate Diagnosis 1 Shoulder pain (M25.5 19) Referral Organization [facility] Pain Managemen t Bone [place] Referring Provider First Name Zeny Referring Provider Last Name Awilda Referring Provider Specialty Pain Medici ne Referred Organization [facility] Ortho pedics Referred Provider Maurisio Jones Referred Address [address] [facility] [place], [place],[address] Referred Provider Specialty Orthopedic S urgery Referral [...] pain Other spondylosis with radiculopathy, cervical region Chief Complaint constipation/abd. pa in constipation/abd. 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 Arthritis of lumbosacral spine Other chronic pain Other spondylosis with radiculopathy, cervical region Chief Complaint RECHECK BACK PAIN CERVICAL EPIDURAL STEROID INJ C7 T1/DS DAYANA LUMBAR FACET RFA L4 L5/DS F/U DAYANA 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 Reason for Visit 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 Arthritis of lumbosacral spine Other chronic pain Other spondylosis with radiculopathy, cervical region Arthritis of lumbosacral spine Myalgia Other chronic pain Other spondylosis with radiculopathy, cervical region Additional Source Comments INFORMATION SOURCE (unrecogn ized section and content) DATE CREATED AUTHOR 08/13/2021 [facility] dical Specialist DATE CREATED AUTHOR AUTHOR'S ORGANIZ ATION 11/20/2022 [facility] pital DATE CREATED AUTHOR AUTHOR'S ORGANIZ ATION 12/31/2023 [facility] DATE CREATED AUTHOR AUTHOR'S ORGANIZ ATION 05/04/2024 [facility] dical Specialists EPIC REASON FOR VISIT (unrecogniz ed section and content) Reason Comments Constipation Care Teams (unrecognized sec tion and content) Team Status: Active Member Role Status Dates Eduardo Man II MD Primary Care Provider Active Team Status: Active Member Role Status Dates Eduardo Man II MD Primary Care Provider Active Start: January 30, 2024 Giuseppe Chung DO Attending Provider Active Sta rt: January 30, 2024 Team Status: Inactive Member Role Status Dates Eduardo Man II MD Primary Care Provider Active Start: February 08, 2024 End: February 08, 2024 Zeny Kaiser MD Attending Provider Active Sta rt: February 08, 2024 End: February 08, 2024 Team Status: Active Member Role Status Dates Eduardo Man II MD Primary Care Provider Active Start: March 15, 2024 Zeny Kaiser MD Attending Provider Active Sta rt: March 15, 2024 Team Status: Inactive Member Role Status Dates Eduardo Man II MD Primary Care Provider Active Start: March 15, 2024 End: March 15, 2024 Zeny Kaiser MD Attending Provider Active Sta rt: March 15, 2024 End: March 15, 2024 Team Status: Active Member Role Status Dates Eduardo Man II MD Primary Care Provider Active Start: March 29, 2024 Zeny Kaiser MD Attending Provider Active Sta rt: March 29, 2024 Team Status: Inactive Member Role Status Dates Eduardo Man II MD Primary Care Provider Active Start: March 29, 2024 End: March 29, 2024 Zeny Kaiser MD Attending Provider Active Sta rt: March 29, 2024 End: March 29, 2024 Team Status: Inactive Member Role Status Dates Eduardo Man II MD Primary Care Provider Active Start: April 27, 2024 End: April 27, 2024 Zeny Kaiser MD Attending Provider Active Sta rt: April 27, 2024 End: April 27, 2024 Team Status: Inactive Member Role Status Trae Man II MD Primary Care Provider Active Chapito Brush MD Attending Provider Active Team Status: Inactive Member Role Status Dates Eduardo Man II MD Primary Care Provider Active Zeny Kaiser MD Attending Provider Active Team Status: Inactive Member Role Status Dates Eduardo Man II MD Primary Care Provider Active Maurisio Jones DO Attending Provider Active Pest Control Operator Relationship Specialty Start Date End Date Eduardo Man MD [address] [facility] [address] [place] [address] PCP - General Internal Medicine 01/04/23 Eduardo Man MD [address] [facility] [address] [place] [address] PCP - [place] [facility] 04/09/23 Pest Control Operator Relationship Specialty Start Date End Date Eduardo Man MD [address] [facility] [address] [place] [address] PCP - General Internal Medicine 01/04/23 Eduardo Man MD [address] [facility] [address] [place] [address] [facility] Team Status: Inactive Member Role Status Dates Eduardo Man II MD Primary Care Provider Active Start: November 25, 2023 End: November 25, 2023 Martita Pandey MD Attending Provider Active Start: November 25, 2023 End: November 25, 2023 Team Status: Inactive Member Role Status Trae Man II MD Primary Care Provider Active Start: December 17, 2023 End: December 17, 2023 Martita Pandey MD Attending Provider Active Start: December 17, 2023 End: December 17, 2023 Team Status: Active Member Role Status Trae Man II MD Primary Care Provider Active [...] BE BASED ON THE PRIMARY CLINICAL RECORDS. [employer] [facility]. provides no warranty or guarantee of the accuracy or completeness of information in this document.
--- NOTE | 2024-05-10 11:08 | XR_ITS ---
The [address] [address] Patient Name: KEE RAI MRN: [id number] date: 1975 Sex: F Assigned Patient Location: [facility] Current Patient Location: [facility] Accession/Order Number: [id number] Exam Date: 05/10/2024 11:14 Report Date: 05/10/2024 18:43 At the request of: CELESTE JUAREZ Procedure: XR chest 2V EXAM: XR chest 2V HISTORY: Mild Persistent Asthmatic Bronchitis J48.30 COMPARISON: 12/12/2021 TECHNIQUE: Upright PA and lateral chest x-ray FINDINGS: The heart is not enlarged and the vasculature is not distended. No acute infiltrate, effusion or pneumothorax is identified. The osseous structures are grossly intact. XR/XR chest 2V IMPRESSION: No acute infiltrate or evidence of cardiac decompensation. The overall appearance of the chest is essentially unchanged. Electronically authenticated by: KIRILL DICKERSON Date: 05/10/2024 18:43
== END 2024-05-10 10:43 | disposition home or self-care (01) ==
LOC: RAD 10:46
PROVIDERS: PCP Internal Medicine; Visit Provider Physician Assistant
DX: J45.30 Mild persistent asthma, uncomplicated (principal)
CPT/HCPCS: 71046

== ENCOUNTER 2024-10-10 08:44 | Outpatient (OUT) | payer BC, SELFPAY ==
--- NOTE | 2024-10-10 08:46 | MR_ITS ---
[address] [address] Patient Name: KEE RAI MRN: [id number] date: 1975 Sex: F Assigned Patient Location: MRI Current Patient Location: MRI Accession/Order Number: [id number] Exam Date: 10/10/2024 15:47 Report Date: 10/10/2024 15:56 At the request of: ALICIA BERG Procedure: MR lumbar spine wo con EXAMINATION: MRI LUMBAR SPINE WITHOUT IV CONTRAST CLINICAL HISTORY: Lumbar Facet Arthropathy, Herniation Of Lumbar Disc COMPARISON: Lumbar spine MRI 10/26/2023 TECHNIQUE: Multiecho imaging was performed in the sagittal and axial planes without contrast administration. FINDINGS: Vertebral body heights appear maintained. No bone marrow edema is present. Postsurgical change L5-S1 similar to the prior study. Spinal cord terminates in normal position without abnormal cord signal. No paraspinal mass. Visualized abdomen demonstrates no acute process. At L1-L2: Disc desiccation. No posterior disc pathology. Mild facet joint degenerative changes. No canal or neural foraminal stenosis. At L2-L3: No posterior disc pathology. Mild facet joint degenerative change. No neural canal or foraminal stenosis. At L3-L4: No posterior disc pathology. Mild facet joint degenerative change. No neural canal or foraminal stenosis. At L4-L5: No posterior disc pathology. Moderate facet joint degenerative changes. Mild canal stenosis. No significant neural foraminal stenosis. At L5-S1: Postoperative changes. Mild diffuse broad-based disc bulge similar to the prior study. No significant canal stenosis. Mild bilateral neural foraminal stenosis. MR/MR lumbar spine wo con IMPRESSION: Overall, no significant change in lumbar spine findings compared to the prior study from 10/26/2023. No severe canal or neural foraminal stenosis is seen. Impression dictated by: Tin Martinez Jr., D.O.10/10/2024 3:56 PM Dictation Location: [place] [address] Electronically authenticated by: [id number] Y Date: 10/10/2024 15:56
== END 2024-10-10 08:45 | disposition home or self-care (01) ==
LOC: MRI 08:44
PROVIDERS: PCP Internal Medicine; Visit Provider Physician Assistant Medical
DX: M51.362 Other intervertebral disc degeneration, lumbar region with discogenic back pain and lower extremity pain (principal); M47.816 Spondylosis without myelopathy or radiculopathy, lumbar region; M51.26 Other intervertebral disc displacement, lumbar region
CPT/HCPCS: 72148